=== PATIENT | female | born 1975 | race Two or more races ===

== ENCOUNTER 2018-05-06 11:44 | Inpatient (IN) | payer SELFPAY ==
[~2018-05-06] VITALS: Ht 154.9 cm; Wt 73.4 kg
[2018-05-06] MEDS ORDERED: ONDANSETRON HCL 4 MG/2 ML VIAL IV ONE (12:45)
[2018-05-06] MEDS ORDERED: KETOROLAC TROMETH 30 MG/ML 1ML VIAL IV ONE (12:45)
[2018-05-06 13:38] LABS: Urine Bacteria FEW /hpf (None Seen); Urine Blood 2+ /uL (Negative); Urine Hyaline Cast FEW /lpf (0 - 2); Urine Mucus FEW (None Seen); Urine Specific Gravity 1.015 (1.001-1.035); Urine WBC 42 /hpf (0 - 5)
[2018-05-06 13:56] LABS: Albumin 3.1 g/dL (3.4-5.0); Calcium 8.4 mg/dL (8.5-10.1)
[2018-05-06 13:58] LABS: BUN/Creatinine Ratio 12.9
[2018-05-06 14:00] LABS: Bilirubin, Total 0.3 mg/dL (0.2-1.0); Total Protein 7.7 g/dL (6.4-8.2)
[2018-05-06 14:23] LABS: Eosinophils # (auto) 0.4 uL; Monocytes # (auto) 0.8 uL; White Blood Cell 10.6 10^3/uL (4.4-10.8)
[2018-05-06 14:26] LABS: Basophils # (auto) 0 uL; Basophils % (auto) 0.4 % (0.0-2.0); Eosinophils % (auto) 4.1 % (0.0-7.0); Hematocrit 36.6 % (36.0-46.0); Hemoglobin 11.4 g/dL (12.2-16.2); Lymphocytes # (auto) 1.8 uL; Lymphocytes % (auto) 17.5 % (10.0-50.0); Mean Corpuscular Hemoglobin 22.5 pg (28.0-32.0); Mean Corpuscular Volume 72.6 fL (80.0-100.0); Monocytes % (auto) 7.5 % (0.0-12.0); Neutrophils # (auto) 7.5 uL; Neutrophils % (auto) 70.5 % (37.0-80.0); Platelet Count (auto) 322 10^3/uL (140-450); Red Blood Cells 5.04 10^6/uL (4.0-5.20); Red Cell Distribution Width 19.3 % (11.8-14.3)
[2018-05-06] MEDS ORDERED: cefTRIAXone 1GM/50ML D5W 50 ML IV ONE (14:45)
[2018-05-06] MEDS ORDERED: ONDANSETRON HCL 4 MG/2 ML VIAL IV PRN (15:15)
[2018-05-06] MEDS ORDERED: PERMETHRIN 5 % TOPICAL CREAM 60GM TOP ONE (15:15)
[2018-05-06] MEDS ORDERED: TEMAZEPAM 15 MG CAP PO PRN (15:15)
[2018-05-06] MEDS ORDERED: DOCUSATE SOD 100 MG CAP PO PRN (15:15)
[2018-05-06] MEDS: SODIUM CHLORIDE 0.9% 1,000 ML IV SCH ×2 (15:21→23:24)
[2018-05-06] MEDS ORDERED: MULTIPLE VITAMIN TAB PO ONE (15:30)
[2018-05-06] MEDS ORDERED: HYDR25TA4 PO (17:25)
[2018-05-06 17:26] VITALS: BP 141/93
[2018-05-06 17:38] VITALS: BP 141/93
[2018-05-06] MEDS: Ensure Enlive Strawberry 8oz Bottle PO SCH (18:00)
[2018-05-06] MEDS: MORPHINE SULFATE 4 MG/ML SYR/VIAL IV PRN (19:00)
[2018-05-06] MEDS: HYDROcodone-ACET 5/325MG TAB PO PRN (20:41)
[2018-05-06 22:00] VITALS: BP 148/88
[2018-05-07] MEDS: MORPHINE SULFATE 4 MG/ML SYR/VIAL IV PRN ×2 (00:29→06:10)
[2018-05-07] MEDS: HYDROcodone-ACET 5/325MG TAB PO PRN ×4 (02:39→19:48)
[2018-05-07 05:25] VITALS: BP 135/89
[2018-05-07 05:33] LABS: Mean Corpuscular Hgb Conc. 30.8 g/dL (32.0-36.0); Mean Corpuscular Volume 72.2 fL (80.0-100.0); Platelet Count (auto) 273 10^3/uL (140-450); Red Cell Distribution Width 18.9 % (11.8-14.3)
[2018-05-07 05:40] LABS: Basophils # (auto) 0 uL; Basophils % (auto) 0.3 % (0.0-2.0); Eosinophils # (auto) 0.4 uL; Eosinophils % (auto) 3.3 % (0.0-7.0); Hematocrit 33.4 % (36.0-46.0); Hemoglobin 10.3 g/dL (12.2-16.2); Lymphocytes # (auto) 1.4 uL; Lymphocytes % (auto) 11.5 % (10.0-50.0); Mean Corpuscular Hemoglobin 22.2 pg (28.0-32.0); Monocytes # (auto) 0.8 uL; Monocytes % (auto) 6.5 % (0.0-12.0); Neutrophils # (auto) 9.7 uL; Neutrophils % (auto) 78.4 % (37.0-80.0); Red Blood Cells 4.63 10^6/uL (4.0-5.20); White Blood Cell 12.4 10^3/uL (4.4-10.8)
[2018-05-07 06:02] LABS: Albumin 2.8 g/dL (3.4-5.0); BUN/Creatinine Ratio 14.6; Bilirubin, Total 0.4 mg/dL (0.2-1.0); Calcium 7.6 mg/dL (8.5-10.1); Phosphorus 2.5 mg/dL (2.5-4.90); Total Protein 7.1 g/dL (6.4-8.2); Uric Acid 4.3 mg/dL (2.6-6.0)
[2018-05-07 08:32] VITALS: BP 139/89
[2018-05-07] MEDS: Ensure Enlive Strawberry 8oz Bottle PO SCH ×3 (09:17→18:12)
[2018-05-07] MEDS: SODIUM CHLORIDE 0.9% 1,000 ML IV SCH ×2 (09:17→16:51)
[2018-05-07] MEDS: MULTIPLE VITAMIN TAB PO SCH (09:18)
[2018-05-07] MEDS: cefTRIAXone 1GM/50ML D5W 50 ML IV SCH (09:18)
[2018-05-07 13:00] VITALS: BP 137/88
[2018-05-07] MEDS ORDERED: ERGOCALCIFEROL 50,000 UNIT(1.25MG) CAP PO SCH (17:00)
[2018-05-07 17:22] VITALS: BP 139/85
[2018-05-07 21:47] VITALS: BP 142/81
[2018-05-07] MEDS ORDERED: TAMSULOSIN HYDROCHLORIDE 0.4 MG CAP PO ONE (22:15)
[2018-05-08] MEDS: SODIUM CHLORIDE 0.9% 1,000 ML IV SCH ×3 (00:53→17:04)
[2018-05-08] MEDS: HYDROcodone-ACET 5/325MG TAB PO PRN ×5 (01:51→23:19)
[2018-05-08 04:49] VITALS: BP 129/50
[2018-05-08 05:23] LABS: Eosinophils # (auto) 0.4 uL; Eosinophils % (auto) 3.9 % (0.0-7.0); Hemoglobin 10.7 g/dL (12.2-16.2); Lymphocytes # (auto) 1.8 uL; Monocytes # (auto) 0.6 uL; Neutrophils # (auto) 6.5 uL
[2018-05-08 05:27] LABS: Basophils # (auto) 0 uL; Basophils % (auto) 0.4 % (0.0-2.0); Hematocrit 33.7 % (36.0-46.0); Lymphocytes % (auto) 19.7 % (10.0-50.0); Mean Corpuscular Hemoglobin 23.1 pg (28.0-32.0); Mean Corpuscular Hgb Conc. 31.9 g/dL (32.0-36.0); Mean Corpuscular Volume 72.5 fL (80.0-100.0); Monocytes % (auto) 6.4 % (0.0-12.0); Neutrophils % (auto) 69.6 % (37.0-80.0); Nucleated Red Blood Cells % 0.1 %; Platelet Count (auto) 295 10^3/uL (140-450); Red Blood Cells 4.65 10^6/uL (4.0-5.20); Red Cell Distribution Width 18.8 % (11.8-14.3); White Blood Cell 9.4 10^3/uL (4.4-10.8)
[2018-05-08 05:43] LABS: BUN/Creatinine Ratio 12.8; Calcium 8.1 mg/dL (8.5-10.1); Potassium 3.7 mmol/L (3.5-5.1)
[2018-05-08 08:00] VITALS: BP 158/93
[2018-05-08 08:30] VITALS: BP 158/93
[2018-05-08] MEDS: cefTRIAXone 1GM/50ML D5W 50 ML IV SCH (09:49)
[2018-05-08] MEDS: MULTIPLE VITAMIN TAB PO SCH (09:49)
[2018-05-08] MEDS: Ensure Enlive Strawberry 8oz Bottle PO SCH ×3 (09:53→18:20)
[2018-05-08 12:24] VITALS: BP 154/107
[2018-05-08] MEDS ORDERED: cloNIDine HCL 0.1 MG TAB PO PRN (14:30)
[2018-05-08 17:00] VITALS: BP 135/80
[2018-05-08] MEDS ORDERED: TAMSULOSIN HYDROCHLORIDE 0.4 MG CAP PO SCH (18:00)
[2018-05-08] MEDS: ACETAMINOPHEN 325 MG TAB PO PRN (18:21)
[2018-05-08 21:58] VITALS: BP 160/114
[2018-05-09] MEDS: ACETAMINOPHEN 325 MG TAB PO PRN (00:55)
[2018-05-09] MEDS: SODIUM CHLORIDE 0.9% 1,000 ML IV SCH ×2 (00:56→09:59)
[2018-05-09 05:15] VITALS: BP 146/78
[2018-05-09 05:58] LABS: Basophils # (auto) 0 uL; Basophils % (auto) 0.3 % (0.0-2.0); Eosinophils # (auto) 0.3 uL; Monocytes # (auto) 0.5 uL; Monocytes % (auto) 4.7 % (0.0-12.0); Neutrophils # (auto) 8.5 uL; White Blood Cell 10.9 10^3/uL (4.4-10.8)
[2018-05-09 06:02] LABS: Eosinophils % (auto) 2.8 % (0.0-7.0); Hematocrit 34.5 % (36.0-46.0); Lymphocytes # (auto) 1.5 uL; Lymphocytes % (auto) 14.3 % (10.0-50.0); Mean Corpuscular Hgb Conc. 31.8 g/dL (32.0-36.0); Mean Corpuscular Volume 72.3 fL (80.0-100.0); Neutrophils % (auto) 77.9 % (37.0-80.0); Platelet Count (auto) 323 10^3/uL (140-450); Red Blood Cells 4.77 10^6/uL (4.0-5.20); Red Cell Distribution Width 19.5 % (11.8-14.3)
[2018-05-09 06:08] LABS: BUN/Creatinine Ratio 8.8; Calcium 8.3 mg/dL (8.5-10.1); Potassium 3.6 mmol/L (3.5-5.1)
[2018-05-09 08:00] VITALS: BP 155/94
[2018-05-09 08:52] VITALS: BP 155/94
[2018-05-09] MEDS: cefTRIAXone 1GM/50ML D5W 50 ML IV SCH (09:54)
[2018-05-09] MEDS: MULTIPLE VITAMIN TAB PO SCH (09:54)
[2018-05-09] MEDS: Ensure Enlive Strawberry 8oz Bottle PO SCH ×2 (09:59→12:00)
[2018-05-09 10:14] VITALS: BP 155/94
[2018-05-09 12:02] VITALS: BP 145/73
[2018-05-09] MEDS: HYDROcodone-ACET 5/325MG TAB PO PRN (12:36)
== END 2018-05-09 13:17 | disposition home or self-care (01) | DRG 872 ==
LOC: ER 11:45 → OVERFLOW 15:11 → WEST WING 16:35
PROVIDERS: ADMIT Internal Medicine; ATTEND Internal Medicine
DX: A41.9 Sepsis, unspecified organism (principal); E44.0 Moderate protein-calorie malnutrition; N17.9 Acute kidney failure, unspecified; N13.6 Pyonephrosis; E83.51 Hypocalcemia; I12.9 Hypertensive chronic kidney disease with stage 1 through stage 4 chronic kidney disease, or unspecified chronic kidney disease; F17.210 Nicotine dependence, cigarettes, uncomplicated; K76.0 Fatty (change of) liver, not elsewhere classified; D50.9 Iron deficiency anemia, unspecified; N29 Other disorders of kidney and ureter in diseases classified elsewhere; E83.59 Other disorders of calcium metabolism; S00.03XA Contusion of scalp, initial encounter; F15.90 Other stimulant use, unspecified, uncomplicated; X58.XXXA Exposure to other specified factors, initial encounter; N18.3 Chronic kidney disease, stage 3 (moderate); Z90.49 Acquired absence of other specified parts of digestive tract; Z98.51 Tubal ligation status; Z68.30 Body mass index [BMI] 30.0-30.9, adult; Z59.0 Homelessness; Y93.89 Activity, other specified; Y92.89 Other specified places as the place of occurrence of the external cause; Y99.8 Other external cause status
CPT/HCPCS: 36415; 70450; 70490; 74176; 80048; 80053; 81001; 82150; 82306; 82570; 83690; 83970; 84100; 84156; 84300; 84550; 85025; 87086; 94761; 96365; 96375; G0378; J0696; J1885; J2405

== ENCOUNTER 2020-12-30 15:58 | Emergency (ER) | payer MEDICAID, OTHER ==
[~2020-12-30] VITALS: Ht 154.9 cm; Wt 63.5 kg
[~2020-12-30 15:58] MED LIST: HYDR25TA4 PO
[2020-12-30] MEDS ORDERED: cloNIDine HCL 0.1 MG TAB PO ONE (16:15)
[2020-12-30 18:38] VITALS: BP 137/83
== END 2020-12-30 18:52 | disposition left against medical advice (07) ==
LOC: ER 15:58
DX: I10 Essential (primary) hypertension (principal); Z53.21 Procedure and treatment not carried out due to patient leaving prior to being seen by health care provider

== ENCOUNTER 2021-10-20 16:35 | Emergency (ER) | payer OTHER ==
[~2021-10-20] VITALS: Ht 154.9 cm; Wt 72.6 kg
[2021-10-20 17:15] LABS: Basophils # (auto) 0.1 10 ^3/uL (0-0.2); Eosinophils # (auto) 0.2 10 ^3/uL (0-0.8); Monocytes # (auto) 0.7 10 ^3/uL (0-1.3); Nucleated Red Blood Cells % 0.1 %
[2021-10-20 17:17] LABS: Basophils % (auto) 0.7 % (0.0-2.0); Eosinophils % (auto) 2.1 % (0.0-7.0); Hematocrit 34.2 % (36.0-46.0); Hemoglobin 10.7 g/dL (12.2-16.2); Lymphocytes % (auto) 27.7 % (10.0-50.0); Mean Corpuscular Hemoglobin 20.2 pg (28.0-32.0); Mean Corpuscular Hgb Conc. 31.2 g/dL (32.0-36.0); Monocytes % (auto) 6.2 % (0.0-12.0); Neutrophils # (auto) 6.8 10 ^3/uL (1.6-8.6); Neutrophils % (auto) 63.3 % (37.0-80.0); Red Blood Cells 5.27 10^6/uL (4.0-5.20); Red Cell Distribution Width 18.2 % (11.8-14.3); White Blood Cell 10.8 10^3/uL (4.4-10.8)
[2021-10-20 17:35] LABS: Albumin 3.8 g/dL (3.4-5.0); BUN/Creatinine Ratio 14.9; Calcium 9.3 mg/dL (8.5-10.1); Potassium 3.9 mmol/L (3.5-5.1)
[2021-10-20 17:38] LABS: Bilirubin, Total 0.2 mg/dL (0.2-1.0); Total Protein 7.8 g/dL (6.4-8.2)
[2021-10-20 22:51] VITALS: BP 147/82
[2021-10-20] MEDS ORDERED: LISI20TA28 PO (22:52)
== END 2021-10-20 22:54 | disposition home or self-care (01) ==
LOC: ER 16:35
DX: R07.89 Other chest pain (principal); I10 Essential (primary) hypertension; F17.210 Nicotine dependence, cigarettes, uncomplicated; F15.10 Other stimulant abuse, uncomplicated; Z98.51 Tubal ligation status; Z90.89 Acquired absence of other organs
CPT/HCPCS: 36415; 71045; 80053; 84484; 85025; 93005

== ENCOUNTER 2022-09-15 12:17 | Emergency (ER) | payer OTHER ==
[~2022-09-15] VITALS: Ht 154.9 cm; Wt 61.3 kg
[~2022-09-15 12:17] MED LIST changes: +LISI20TA28 PO
[2022-09-15 12:40] VITALS: BP 134/87
[2022-09-15] MEDS ORDERED: LISI20TA28 PO (12:59)
== END 2022-09-15 13:07 | disposition home or self-care (01) ==
LOC: ER 12:17
DX: I10 Essential (primary) hypertension (principal); F17.210 Nicotine dependence, cigarettes, uncomplicated; F15.10 Other stimulant abuse, uncomplicated; Z76.0 Encounter for issue of repeat prescription; Z98.51 Tubal ligation status

== ENCOUNTER 2023-09-06 10:13 | Emergency (ER) | payer OTHER ==
[~2023-09-06] VITALS: Ht 154.9 cm; Wt 79.0 kg
[~2023-09-06 10:13] MED LIST changes: -LISI20TA28 PO; +LISI20TA56 PO
[2023-09-06 11:31] VITALS: BP 181/93; PULSE 95; RESP 16; TEMP 97.4; O2SAT 99
[2023-09-06] MEDS ORDERED: LISI20TA56 PO (11:37)
== END 2023-09-06 11:41 | disposition home or self-care (01) ==
LOC: ER 10:13
DX: I10 Essential (primary) hypertension (principal); F17.210 Nicotine dependence, cigarettes, uncomplicated; F15.10 Other stimulant abuse, uncomplicated; Z76.0 Encounter for issue of repeat prescription; Z98.51 Tubal ligation status

== ENCOUNTER 2024-10-17 08:46 | Inpatient (IN) | payer MEDICAID, OTHER ==
[~2024-10-17] VITALS: Ht 154.9 cm; Wt 75.9 kg
[2024-10-17 09:20] LABS: Urine Bacteria None Seen /hpf (None Seen)
[2024-10-17 09:37] LABS: Basophils # (auto) 0.1 10 ^3/uL (0-0.2); Monocytes # (auto) 0.4 10 ^3/uL (0-1.3); Nucleated Red Blood Cells % 0.1 %
[2024-10-17 09:41] LABS: Basophils % (auto) 0.7 % (0.0-2.0); Eosinophils # (auto) 0.3 10 ^3/uL (0-0.8); Eosinophils % (auto) 2.9 % (0.0-7.0); Hematocrit 35.5 % (36.0-46.0); Hemoglobin 11.5 g/dL (12.2-16.2); Lymphocytes # (auto) 1.9 10 ^3/uL (0.4-5.4); Mean Corpuscular Hemoglobin 22.5 pg (28.0-32.0); Mean Corpuscular Hgb Conc. 32.3 g/dL (32.0-36.0); Mean Corpuscular Volume 69.9 fL (80.0-100.0); Monocytes % (auto) 4.8 % (0.0-12.0); Neutrophils # (auto) 6.1 10 ^3/uL (1.6-8.6); Neutrophils % (auto) 69.6 % (37.0-80.0); Platelet Count (auto) 348 10^3/uL (140-450); Red Blood Cells 5.08 10^6/uL (4.0-5.20); Red Cell Distribution Width 18.6 % (11.8-14.3); White Blood Cell 8.8 10^3/uL (4.4-10.8)
[2024-10-17 09:42] LABS: Urine Blood 2+ /uL (Negative); Urine Clarity Clear (Clear); Urine Color Colorless (Yellow); Urine Protein, UAD TRACE (Negative); Urine Specific Gravity 1.011 (1.001-1.035); Urine Squamous Epithelial Cell FEW /hpf (<5); Urine Urobilinogen Normal (Negative); Urine WBC 3 /HPF (0-5); Urine pH 6.5 (5.0-9.0)
--- NOTE | 2024-10-17 09:45 | ED.PDOC ---
GI ASSESSMENT HPI Comments 48 y/o F, with PMHx of HTN presents to the ED for CC of abdominal pain. Patient states, that she has been experiencing RLQ pain with associated nausea and vomiting x4days. Patient relays, symptoms worsening when she lays down. Patient denies fever, chills, body-aches, or diarrhea. No other associated symptoms, modifiers, recent injuries or sick contacts present at this time. Chief Complaint: Abdominal Pain Time Seen by MD: 09:35 Primary Care Provider: None Reviewed Notes: Nurses Notes, Medications, Allergies Allergies: Coded Allergies: NO KNOWN ALLERGIES (Unverified , 05/17/10) Home Meds Active Scripts Lisinopril (Lisinopril) 20 Mg Tab, 1 TAB PO DAILY, #90 TAB 1 Refill Prov:TRACI MCGILL 09/06/23 Lisinopril (Lisinopril) 20 Mg Tab, 1 TAB PO DAILY, #30 TAB 2 Refills Prov:ARMAND TOWNSEND 01/12/23 Lisinopril (Lisinopril) 20 Mg Tab, 1 TAB PO DAILY, #30 TAB 1 Refill Prov:ARMAND TOWNSEND 09/15/22 Lisinopril (Lisinopril) 20 Mg Tab, 1 TAB PO DAILY, #30 TAB 5 Refills Prov:BARRY YOUNG MD 10/20/21 Reported Medications Hydrochlorothiazide (Hydrochlorothiazide) 25 Mg Tab, 25 MG PO DAILY for 30 Days, MG 05/06/18 Information Source: Patient Mode of Arrival: Ambulatory Timing: Days Duration: Since onset Prehospital treatment: None Quality: None Vomitus: Watery Stool: Normal Severity: None Recent: None Recent Hx of: None Pain Location: RLQ Modifying Factors: Nothing Associated sign and symptoms: Nausea, Vomiting Past Medical History PAST MEDICAL HISTORY: HTN Surgical History: Appendectomy, 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 Family History Family History: Reviewed,noncontributory to illness Social History Smoker: Cigarettes Alcohol: Occasionally Drugs: Methamphetamine Lives In: Home Constitutional: denies: chills, diaphoresis, fatigue, fever, malaise, sweats, weakness, others EENTM: denies: blurred vision, double vision, ear bleeding, ear discharge, ear drainage, ear pain, ear ringing, eye pain, eye redness, hearing loss, mouth pain, mouth swelling, nasal discharge, nose bleeding, nose congestion, nose pain, photophobia, tearing, throat pain, throat swelling, voice changes, others Respiratory: denies: cough, hemoptysis, orthopnea, SOB at rest, shortness of breath, SOB with excertion, stridor, wheezing, others Cardiovascular: denies: chest pain, dizzy spells, diaphoresis, Dyspnea on exertion, edema, irregular heart beat, left arm pain, lightheadedness, palpitations, PND, syncope, others Gastrointestinal: reports: abdominal pain, nausea, vomiting; denies: abdomen distended, blood streaked bowels, constipated, diarrhea, dysphagia, difficulty swallowing, hematemesis, melena, poor appetite, poor fluid intake, rectal bleeding, rectal pain, others Genitourinary: denies: abnormal vagina bleeding, burning, dyspareunia, dysuria, flank pain, frequency, hematuria, incontinence, pain, , vagina discharge, urgency, others Neurological: denies: dizziness, fainting, headache, left sided numbness, left sided weakness, numbness, paresthesia, pre-existing deficit, right sided numbness, right sided weakness, seizure, speech problems, tingling, tremors, weakness, others Musculoskeletal: denies: back pain, gout, joint pain, joint swelling, muscle pain, muscle stiffness, neck pain, others Integumetry: denies: bruises, change in color, change in hair/nails, dryness, laceration, lesions, lumps, rash, wounds, others Allergic/Immunocompromised: denies: Difficulty Healing, Frequent Infections, Hives, Itching, others Hematologic/Lymphatic: denies: anemia, blood clots, easy bleeding, easy bruising, swollen glands, others Endocrine: denies: excessive hunger, excessive sweating, excessive thirst, excessive urination, flushing, intolerance to cold, intolerance to heat, unexplained weight gain, unexplained weight loss, others Psychiatric: denies: anxiety, bipolar disorder, depression, hopeless, panic disorder, schizophrenia, sleepless, suicidal, others All Other Systems: Reviewed and Negative Physical Exam General Appearance: No Apparent Distress, Normal HEENT: Normal ENT Inspection, Pharynx Normal Neck: Full Range of Motion, Non-Tender, Normal, Normal Inspection Respiratory: Chest Non-Tender, Lungs Clear, No Accessory Muscle Use, No Respiratory Distress, Normal Breath Sounds Cardiovascular: No Edema, No Murmur, No Gallop, Normal Peripheral Pulses, Regular Rate/Rhythm Breast Exam: Deferred Gastrointestinal: No Organomegaly, Non Tender, No Pulsatile Mass, Normal Bowel Sounds, Soft, Other (no cva ttp) Genitalia: Deferred Pelvic: Deferred Rectal: Deferred Extremities: No calf tenderness, Normal capillary refill, Normal inspection, Normal range of motion, Non-tender, No pedal edema Musculoskeletal : Apperance: Normal Neurologic: Alert, No Motor Deficits, Normal Affect, Normal Mood, No Sensory Deficits Cerebellar Function: Normal Reflexes: Normal Skin: Dry, Normal Color, Warm Lymphatic: No Adenopathy Was a procedure done? Was a procedure done?: No GI differential Dx Differential Diagnosis: Constipation, Gastritis/PUD, Gastroenteritis, UTI, Electrolyte Imbalance, Food Poisoning, Bacterial, Viral X-Ray, Labs, Meds, VS Vital Signs Date Time Temp Pulse Resp B/P (MAP) Pulse Ox O2 Delivery O2 Flow Rate FiO2 10/17/24 09:28 97.4 77 19 144/91 (108) 97 97.4 Lab Test 10/17/24 09:23 10/17/24 09:20 Range/Units White Blood Count 8.8 4.4-10.8 10^3/uL Red Blood Count 5.08 4.0-5.20 10^6/uL Hemoglobin 11.5 L 12.2-16.2 g/dL Hematocrit 35.5 L 36.0-46.0 % Mean Corpuscular Volume 69.9 L 80.0-100.0 fL Mean Corpuscular Hemoglobin 22.5 L 28.0-32.0 pg Mean Corpuscular Hemoglobin Concent 32.3 32.0-36.0 g/dL Red Cell Distribution Width 18.6 H 11.8-14.3 % Platelet Count 348 140-450 10^3/uL Mean Platelet Volume 8.5 6.9-10.8 fL Neutrophils (%) (Auto) 69.6 37.0-80.0 % Lymphocytes (%) (Auto) 22.0 10.0-50.0 % Monocytes (%) (Auto) 4.8 0.0-12.0 % Eosinophils (%) (Auto) 2.9 0.0-7.0 % Basophils (%) (Auto) 0.7 0.0-2.0 % Neutrophils # (Auto) 6.1 1.6-8.6 10 ^3/uL Lymphocytes # (Auto) 1.9 0.4-5.4 10 ^3/uL Monocytes # (Auto) 0.4 0-1.3 10 ^3/uL Eosinophils # (Auto) 0.3 0-0.8 10 ^3/uL Basophils # (Auto) 0.1 0-0.2 10 ^3/uL Nucleated Red Blood Cells 0.1 % Sodium Level 140 136-145 mmol/L Potassium Level 4.2 3.5-5.1 mmol/L Chloride Level 108 H 98-107 mmol/L Carbon Dioxide Level 24 20-31 mmol/L Anion Gap 8 5-15 Blood Urea Nitrogen 12 9-23 mg/dL Creatinine 0.88 0.550-1.02 mg/dL Glomerular Filtration Rate Calc 82 >90 mL/min BUN/Creatinine Ratio 13.6 10.0-20.0 Serum Glucose 94 74-106 mg/dL Lactic Acid Level 1.0 0.4-2.0 mmol/L Calcium Level 10.0 8.7-10.4 mg/dL Total Bilirubin 0.5 0.2-1.0 mg/dL Aspartate Amino Transferase (AST) 13 13-40 U/L Alanine Aminotransferase (ALT) 14 7-40 U/L Alkaline Phosphatase 84 46-116 U/L Total Protein 7.6 5.7-8.2 g/dL Albumin 4.8 3.2-4.8 g/dL Lipase 44 12-53 U/L Beta HCG, Quantitative 0.4 L 1.5-4.2 mIU/mL Urine Color Colorless Yellow Urine Clarity Clear Clear Urine pH 6.5 5.0-9.0 Urine Specific [place] 1.011 1.001-1.035 Urine Protein Trace H Negative Urine Ketones Negative Negative Urine Blood 2+ H Negative /uL Urine Nitrite Negative Negative Urine Bilirubin Negative Negative Urine Urobilinogen Normal Negative mg/dL Urine Leukocyte Esterase Negative Negative /uL Urine RBC 62 0 - 4 /hpf Urine Microscopic WBC 3 0-5 /HPF Urine Squamous Epithelial Cells Few <5 /hpf Urine Bacteria None seen None Seen /hpf Urine Glucose Normal Normal mg/dL X-Ray, Labs, Meds, VS Comment This 48-year-old female presents to emergency room secondary to left lower nancy drant abdominal pain. Physical exam was benign. However, her CT shows a 7 mm obstructing left kidney stone with hydronephrosis. She also has bilateral nephrocalcinosis. Secondary to the obstructing nature of the stone and its size, she will be admitted for further workup and management. The patient was given IV hydration, Flomax and morphine for pain. Time of 1ST Reevaluation: 10:05 Reevaluation 1ST: Unchanged Patient Education/Counseling: Diagnosis, Treatment Family Education/Counseling: No Family Present Departure 1 Departure Time of Disposition: 11:49 Impression: Primary Impression: Nephrolithiasis Additional Impressions: Left lower quadrant abdominal pain Hematuria Disposition: 01 HOME / SELF CARE / HOMELESS Admit to: Med Surg Condition: Serious Critical Care Note Critical Care Time?: No Stability Stability form required: No Heart Score Heart Score: Heart Score Response (Comments) Value History N/A 0 EKG N/A 0 Age N/A 0 Risk Factors N/A 0 Troponin N/A 0 Total 0 I personally scribed for CASSANDRA BLAIR MD ([email or web address]) on 10/17/24 at 09:45. Electronically submitted by Rupa Dickerson [email or web address]). CASSANDRA BLAIR MD Oct 17, 2024 09:45
[2024-10-17 09:52] LABS: Alanine Aminotransferase 14 U/L (7-40); Albumin 4.8 g/dL (3.2-4.8); Alkaline Phosphatase 84 U/L (46-116); Anion Gap 8 (5-15); Aspartate Aminotransferase 13 U/L (13-40); BUN/Creatinine Ratio 13.6 (10.0-20.0); Blood Urea Nitrogen 12 mg/dL (9-23); Carbon Dioxide 24 mmol/L (20-31); Glucose 94 mg/dL (74-106); Potassium 4.2 mmol/L (3.5-5.1); Sodium 140 mmol/L (136-145); Total Protein 7.6 g/dL (5.7-8.2)
[2024-10-17 09:53] LABS: Bilirubin, Total 0.5 mg/dL (0.2-1.0)
[2024-10-17 09:56] LABS: Chloride 108 mmol/L (98-107)
[2024-10-17 10:28] LABS: Lipase 44 U/L (12-53)
--- NOTE | 2024-10-17 10:43 | DVH ---
INDICATION: LLQ pain assess for ovarian torsion TECHNIQUE: Multiple real-time grayscale transabdominal sonographic images along with color and duplex Doppler of the uterus and ovaries were obtained. COMPARISON: None FINDINGS: Evaluation is limited due to body habitus. The uterus measures 13.6 x 5.3 x 6.3 cm. The endometrial stripe measures 0.8 cm. The right ovary measures 3.2 x 2.0 x 1.9 cm. The left ovary measures 3.2 x 2.0 x 2.5 cm. Subsequent color and duplex Doppler interrogation of the ovaries demonstrated symmetric vascular flow to both ovaries, though this does not exclude the possibility of torsion due to the dual blood suppl y. IMPRESSION: 1. Grossly unremarkable pelvic ultrasound.
--- NOTE | 2024-10-17 11:00 | DVH ---
CLINICAL INFORMATION: Left lower quadrant pain. TECHNIQUE: Axial CT images of the abdomen and pelvis were obtained without IV contrast. Coronal and s agittal reformatted images were obtained, reviewed, and stored. Evaluation of the parenchymal organs is limited without IV contrast. Evaluation of the bowel and mesentery is limited without oral contras t. All CT scans at this medical facility are performed using dose modulation techniques as appropriat e to a performed exam including the following: Automated exposure control was utilized; adjustment of the MA and/or KV according to patient size; and use of iterative reconstruction technique. CTDIvol = 11.31 mGy DLP = 598.31 mGy-cm COMPARISON: None FINDINGS: Lung bases: Lung bases are clear. Liver: Grossly unremarkable in its noncontrast enhanced appearance. No abnormal density or focal lesi on identified. Biliary: Gallbladder is partially contracted. Small calcified gallstones visualized. Spleen: Unremarkable. Pancreas: Grossly unremarkable in its noncontrast enhanced appearance. Adrenal glands: Unremarkable. No mass. Kidneys: Moderate left hydronephrosis and hydroureter with obstructing calculus in the distal left ur eter measuring up to 7 mm in greatest dimension, approximately 4 cm proximal to the left ureterovesic al junction. There is bilateral medullary nephrocalcinosis and multiple nonobstructing bilateral una l calculi. Cyst in the upper pole of the right kidney measures up to 2 cm. Small subcentimeter low-at tenuation lesions are seen in the left kidney, likely small cysts, but too small to characterize poor ly delineated from the adjacent renal parenchyma on noncontrast enhanced exam. Aorta/Vascular: Scattered atherosclerotic calcification. No abdominal aortic aneurysm. Retroperitoneum: No mass or lymphadenopathy. Bowel/mesentery: No small bowel obstruction. Appendix is not visualized. Scattered colonic diverticul a without adjacent inflammatory changes to suggest diverticulitis. Pelvic organs: Uterus is anteverted. Bladder: Unremarkable. No mass. Abdominal wall: Small fat containing umbilical hernia. Bones: No acute fracture or suspicious intraosseous lesion. IMPRESSION: 1. Moderate left hydronephrosis with obstructing 7 mm calculus in the distal left ureter. 2. Bilateral medullary nephrocalcinosis and multiple nonobstructing bilateral renal calculi. 3. Right renal cyst small low-attenuation lesions in the left kidney, possibly cysts, but not well ch aracterized due to their small size and noncontrast enhanced exam. 4. Scattered colonic diverticula without adjacent inflammatory changes to suggest diverticulitis. 5. Cholelithiasis partially contracted gallbladder.
[2024-10-17] MEDS ORDERED: MORPHINE SULFATE INJ 2 MG/ml SYRG IV PRN (12:15)
[2024-10-17] MEDS ORDERED: ACETAMINOPHEN 325 MG TAB PO PRN (12:15)
[2024-10-17] MEDS: SODIUM CHLORIDE 0.9% 1,000 ML IV ONE (12:32)
[2024-10-17] MEDS: TAMSULOSIN HYDROCHLORIDE 0.4 MG CAP PO ONE (12:36)
[2024-10-17] MEDS: MORPHINE SULFATE 4 MG/ML SYR/VIAL IV ONE (12:37)
[2024-10-17] MEDS: SODIUM CHLORIDE 0.9% 1,450 ML IV ONE (12:38)
--- NOTE | 2024-10-17 12:48 | DVHINCON2 ---
Date of service: Oct 17, 2024 Referring Physician ER Reason for Consultation 7 mm obstructing distal ureteral stone, left History of Present Illness 48-year-old female with past medical history of hypertension, appendectomy, and tubal ligation who presents to the ED with abdominal pain with nausea and vomiting x5 days. Patient states that she just recently got off her menstrual cycle on Monday. She states that there has been trickles of voiding for the last several days and sure if there was bleeding as she is on her menstrual cycle. Patient states that her left lower quadrant abdominal pain is 7/10 stabbing like and intermittent nature. She also reports that she had nausea and vomiting with clear color and food contents. Patient denies any recent travels or recent ingestion of spoiled food, recent trauma or injury, diarrhea, lightheadedness, weakness, dizziness, chest pain, shortness of breath, fever, or chills. Past Medical History Cardiovascular: HTN Past Surgical History Appendectomy, Tubal Ligation Allergies: Coded Allergies: NO KNOWN ALLERGIES (Unverified , 05/17/10) Home Meds Active Scripts Lisinopril (Lisinopril) 20 Mg Tab, 1 TAB PO DAILY, #90 TAB 1 Refill Prov:TRACI MCGILL 09/06/23 Lisinopril (Lisinopril) 20 Mg Tab, 1 TAB PO DAILY, #30 TAB 2 Refills Prov:ARMAND TOWNSEND 01/12/23 Lisinopril (Lisinopril) 20 Mg Tab, 1 TAB PO DAILY, #30 TAB 1 Refill Prov:ARMAND TOWNSEND 09/15/22 Lisinopril (Lisinopril) 20 Mg Tab, 1 TAB PO DAILY, #30 TAB 5 Refills Prov:BARRY YOUNG MD 10/20/21 Discontinued Reported Medications Hydrochlorothiazide (Hydrochlorothiazide) 25 Mg Tab, 25 MG PO DAILY for 30 Days, MG 05/06/18 Current Medications Current Medications Medications (Trade) Dose Ordered Sig/Phillip Route PRN Reason Start Time Stop Time Status Last Admin Tamsulosin HCl (Flomax) 0.4 mg QPM PO 10/18/24 18:00 Sodium Chloride 1,000 ml @ 100 mls/hr Q10H IV 10/17/24 12:15 Ceftriaxone Sodium 50 ml @ 100 mls/hr DAILY@09 IV 10/17/24 12:15 Acetaminophen/ Hydrocodone Bitart (Burr 5/325MG Tab) 1 tab Q4HP PRN PO MODERATE PAIN (4-6 PAIN SCALE) 10/17/24 12:15 Ondansetron HCl (Zofran) 4 mg Q4HP PRN IV NAUSEA / VOMITING 10/17/24 12:15 Enoxaparin Sodium (Lovenox) 40 mg DAILY SC 10/18/24 10:00 Acetaminophen (Tylenol Tablet) 650 mg Q6HP PRN PO PAIN SCALE 1-3 OR TEMP>100.4 10/17/24 12:15 Morphine Sulfate 2 mg Q4HPRN PRN IV SEVERE PAIN (7-10 PAIN SCALE) 10/17/24 12:15 Lisinopril (Zestril Tablet) 20 mg DAILY PO 10/18/24 10:00 Review of Systems Gastrointestinal: Nausea, Vomiting, Abdominal Pain Allergies: Coded Allergies: NO KNOWN ALLERGIES (Unverified , 05/17/10) Medications Current Medications Medications Dose Ordered Sig/Phillip Route Start Time Stop Time Status Last Admin Dose Admin Tamsulosin HCl 0.4 mg QPM PO 10/17/24 18:00 UNV Sodium Chloride 1,000 ml @ 100 mls/hr Q10H IV 10/17/24 12:15 UNV Ceftriaxone Sodium 50 ml @ 100 mls/hr DAILY@09 IV 10/17/24 12:15 UNV Acetaminophen/ Hydrocodone Bitart 1 tab Q4HP PRN PO 10/17/24 12:15 UNV Ondansetron HCl 4 mg Q4HP PRN IV 10/17/24 12:15 UNV Enoxaparin Sodium 40 mg DAILY SC 10/18/24 10:00 UNV Acetaminophen 650 mg Q6HP PRN PO 10/17/24 12:15 UNV Morphine Sulfate 2 mg Q4HPRN PRN IV 10/17/24 12:15 UNV Lisinopril 20 mg DAILY PO 10/18/24 10:00 UNV Vital Signs Vital Signs Date Time Temp Pulse Resp B/P (MAP) Pulse Ox O2 Delivery O2 Flow Rate FiO2 10/17/24 12:37 76 16 159/98 10/17/24 12:30 98 Room Air 10/17/24 12:30 98.2 98.2 Physical Exam Vital Signs Date Time Temp Pulse Resp B/P (MAP) Pulse Ox O2 Delivery O2 Flow Rate FiO2 10/17/24 12:30 76 16 98 Room Air 10/17/24 12:30 98.2 159/98 (118) 98.2 General Appearance: Alert, Oriented X3, Cooperative, No acute distress HEENT: Atraumatic, PERRLA, EOMI, Mucous membr. moist/pink Respiratory: Clear to auscultation, Normal air movement Cardiovascular: Regular rate, Normal S1, Normal S2, No murmurs Abdominal: Normal bowel sounds, Soft Extremities: No clubbing, No cyanosis, No edema, Normal pulses, No tenderness/swelling Skin: No significant lesion Neuro: Normal speech, Strength at 5/5 X4 ext, Normal tone, Sensation intact Psych/Mental Status: Mental status NL, Mood NL Labs/Diagnostic Data Labs Test 10/17/24 09:23 10/17/24 09:20 Range/Units White Blood Count 8.8 4.4-10.8 10^3/uL Red Blood Count 5.08 4.0-5.20 10^6/uL Hemoglobin 11.5 L 12.2-16.2 g/dL Hematocrit 35.5 L 36.0-46.0 % Mean Corpuscular Volume 69.9 L 80.0-100.0 fL Mean Corpuscular Hemoglobin 22.5 L 28.0-32.0 pg Mean Corpuscular Hemoglobin Concent 32.3 32.0-36.0 g/dL Red Cell Distribution Width 18.6 H 11.8-14.3 % Platelet Count 348 140-450 10^3/uL Mean Platelet Volume 8.5 6.9-10.8 fL Neutrophils (%) (Auto) 69.6 37.0-80.0 % Lymphocytes (%) (Auto) 22.0 10.0-50.0 % Monocytes (%) (Auto) 4.8 0.0-12.0 % Eosinophils (%) (Auto) 2.9 0.0-7.0 % Basophils (%) (Auto) 0.7 0.0-2.0 % Neutrophils # (Auto) 6.1 1.6-8.6 10 ^3/uL Lymphocytes # (Auto) 1.9 0.4-5.4 10 ^3/uL Monocytes # (Auto) 0.4 0-1.3 10 ^3/uL Eosinophils # (Auto) 0.3 0-0.8 10 ^3/uL Basophils # (Auto) 0.1 0-0.2 10 ^3/uL Nucleated Red Blood Cells 0.1 % Sodium Level 140 136-145 mmol/L Potassium Level 4.2 3.5-5.1 mmol/L Chloride Level 108 H 98-107 mmol/L Carbon Dioxide Level 24 20-31 mmol/L Anion Gap 8 5-15 Blood Urea Nitrogen 12 9-23 mg/dL Creatinine 0.88 0.550-1.02 mg/dL Glomerular Filtration Rate Calc 82 >90 mL/min BUN/Creatinine Ratio 13.6 10.0-20.0 Serum Glucose 94 74-106 mg/dL Lactic Acid Level 1.0 0.4-2.0 mmol/L Calcium Level 10.0 8.7-10.4 mg/dL Total Bilirubin 0.5 0.2-1.0 mg/dL Aspartate Amino Transferase (AST) 13 13-40 U/L Alanine Aminotransferase (ALT) 14 7-40 U/L Alkaline Phosphatase 84 46-116 U/L Total Protein 7.6 5.7-8.2 g/dL Albumin 4.8 3.2-4.8 g/dL Lipase 44 12-53 U/L Beta HCG, Quantitative 0.4 L 1.5-4.2 mIU/mL Urine Color Colorless Yellow Urine Clarity Clear Clear Urine pH 6.5 5.0-9.0 Urine Specific [place] 1.011 1.001-1.035 Urine Protein Trace H Negative Urine Ketones Negative Negative Urine Blood 2+ H Negative /uL Urine Nitrite Negative Negative Urine Bilirubin Negative Negative Urine Urobilinogen Normal Negative mg/dL Urine Leukocyte Esterase Negative Negative /uL Urine RBC 62 0 - 4 /hpf Urine Microscopic WBC 3 0-5 /HPF Urine Squamous Epithelial Cells Few <5 /hpf Urine Bacteria None seen None Seen /hpf Urine Glucose Normal Normal mg/dL PATIENT: LUCY PERSAUD ACCT: [id number] UNIT: [id number] : 1975 LOC: ER ROOM / BED: / AGE / SEX: 48 / F ADM STATUS: REG ER SERVICE [id number] ORDERING PHYSICIAN: CASSANDRA BLAIR MD PROCEDURE(s): ABPL - CT AB PEL WO CON-NO ORAL OR IV REASON: LLQ pain x 4 days ORDER NUMBER(s): [id number], ACCESSION NUMBER(s): [id number] CLINICAL INFORMATION: Left lower quadrant pain. TECHNIQUE: Axial CT images of the abdomen and pelvis were obtained without IV contrast. Coronal and sagittal reformatted images were obtained, reviewed, and stored. Evaluation of the parenchymal organs is limited without IV contrast. Ev aluation of the bowel and mesentery is limited without oral contrast. All CT scans at this medical facility are performed using dose modulation techniques as appropriate to a performed exam including the following: Automated exposure control was utilized; adjustment of the MA and/or KV according to patient size; and use of iterative reconstruction technique. CTDIvol = 11.31 mGy DLP = 598.31 mGy-cm COMPARISON: None FINDINGS: Lung bases: Lung bases are clear. Liver: Grossly unremarkable in its noncontrast enhanced appearance. No abnormal density or focal lesion identified. Biliary: Gallbladder is partially contracted. Small calcified gallstones visualized. Spleen: Unremarkable. Pancreas: Grossly unremarkable in its noncontrast enhanced appearance. Adrenal glands: Unremarkable. No mass. Kidneys: Moderate left hydronephrosis and hydroureter with obstructing calculus in the distal left ureter measuring up to 7 mm in greatest dimension, approximately 4 cm proximal to the left ureterovesical junction. There is bilateral medullary nephrocalcinosis and multiple nonobstructing bilateral renal calculi. Cyst in the upper pole of the right kidney measures up to 2 cm. Small subcentimeter low-attenuation lesions are seen in the left kidney, likely small cysts, but too small to characterize poorly delineated from the adjacent renal parenchyma on noncontrast enhanced exam. Aorta/Vascular: Scattered atherosclerotic calcification. No abdominal aortic aneurysm. Retroperitoneum: No mass or lymphadenopathy. Bowel/mesentery: No small bowel obstruction. Appendix is not visualized. Scattered colonic diverticula without adjacent inflammatory changes to suggest diverticulitis. Pelvic organs: Uterus is anteverted. Bladder: Unremarkable. No mass. Abdominal wall: Small fat containing umbilical hernia. Bones: No acute fracture or suspicious intraosseous lesion. IMPRESSION: 1. Moderate left hydronephrosis with obstructing 7 mm calculus in the distal left ureter. 2. Bilateral medullary nephrocalcinosis and multiple nonobstructing bilateral renal calculi. 3. Right renal cyst small low-attenuation lesions in the left kidney, possibly cysts, but not well characterized due to their small size and noncontrast enhanced exam. 4. Scattered colonic diverticula without adjacent inflammatory changes to suggest diverticulitis. 5. Cholelithiasis partially contracted gallbladder. ATED BY: NICK FLORENCE DO DICTATED DATE/TIME: 10/17/24 1058 SIGNED BY: NICK FLORENCE DO SIGNED DATE/TIME: 10/17/24 1058 CC: Assessment Left distal ureteral stone, 7 mm with moderate hydronephrosis Left abdominal pain Plan/Recommendation Left PNT Outpatient lithotripsy TBA Plan discussed with: Patient, Other OSWALD CHAU MD Oct 17, 2024 12:48
--- NOTE | 2024-10-17 12:53 | DVHHP2 ---
History of Present Illness Reason for Visit: Abdominal pain History of Present Illness Laura Diallo is a 48-year-old female with past medical history of hypertension, appendectomy, and tubal ligation who presents to the ED with abdominal pain with nausea and vomiting x5 days. Patient states that she just recently got off her menstrual cycle on Monday. She states that there has been trickles of voiding for the last several days and sure if there was bleeding as she is on her menstrual cycle. Patient states that her left lower quadrant abdominal pain is 7/10 stabbing like and intermittent nature. She also reports that she had nausea and vomiting with clear color and food contents. Patient denies any recent travels or recent ingestion of spoiled food, recent trauma or injury, diarrhea, lightheadedness, weakness, dizziness, chest pain, shortness of breath, fever, or chills. Cardiovascular: HTN Past Surgical History: Appendectomy, Tubal Ligation Family History: None Smoke: <1 pack per day ALCOHOL: none (Quit) Drugs: Marijuana (Quit) Lives: with Family Domestic Violence: Neg Review of Systems Gastrointestinal: Nausea, Vomiting, Abdominal Pain Allergies: Coded Allergies: NO KNOWN ALLERGIES (Unverified , 05/17/10) Medications Current Medications Medications Dose Ordered Sig/Phillip Route Start Time Stop Time Status Last Admin Dose Admin Tamsulosin HCl 0.4 mg QPM PO 10/17/24 18:00 UNV Sodium Chloride 1,000 ml @ 100 mls/hr Q10H IV 10/17/24 12:15 UNV Ceftriaxone Sodium 50 ml @ 100 mls/hr DAILY@09 IV 10/17/24 12:15 UNV Acetaminophen/ Hydrocodone Bitart 1 tab Q4HP PRN PO 10/17/24 12:15 UNV Ondansetron HCl 4 mg Q4HP PRN IV 10/17/24 12:15 UNV Enoxaparin Sodium 40 mg DAILY SC 10/18/24 10:00 UNV Acetaminophen 650 mg Q6HP PRN PO 10/17/24 12:15 UNV Morphine Sulfate 2 mg Q4HPRN PRN IV 10/17/24 12:15 UNV Lisinopril 20 mg DAILY PO 10/18/24 10:00 UNV Exam Vital Signs Vital Signs Date Time Temp Pulse Resp B/P (MAP) Pulse Ox O2 Delivery O2 Flow Rate FiO2 10/17/24 12:30 76 16 98 Room Air 10/17/24 12:30 98.2 159/98 (118) 98.2 General Appearance: Alert, Oriented X3, Cooperative, No acute distress HEENT: Atraumatic, PERRLA, EOMI, Mucous membr. moist/pink Respiratory: Clear to auscultation, Normal air movement Cardiovascular: Regular rate, Normal S1, Normal S2, No murmurs Abdominal: Normal bowel sounds, Soft Extremities: No clubbing, No cyanosis, No edema, Normal pulses, No tenderness/swelling Skin: No significant lesion Neuro: Normal speech, Strength at 5/5 X4 ext, Normal tone, Sensation intact Psych/Mental Status: Mental status NL, Mood NL Labs/Xrays Labs Test 10/17/24 09:23 10/17/24 09:20 Range/Units White Blood Count 8.8 4.4-10.8 10^3/uL Red Blood Count 5.08 4.0-5.20 10^6/uL Hemoglobin 11.5 L 12.2-16.2 g/dL Hematocrit 35.5 L 36.0-46.0 % Mean Corpuscular Volume 69.9 L 80.0-100.0 fL Mean Corpuscular Hemoglobin 22.5 L 28.0-32.0 pg Mean Corpuscular Hemoglobin Concent 32.3 32.0-36.0 g/dL Red Cell Distribution Width 18.6 H 11.8-14.3 % Platelet Count 348 140-450 10^3/uL Mean Platelet Volume 8.5 6.9-10.8 fL Neutrophils (%) (Auto) 69.6 37.0-80.0 % Lymphocytes (%) (Auto) 22.0 10.0-50.0 % Monocytes (%) (Auto) 4.8 0.0-12.0 % Eosinophils (%) (Auto) 2.9 0.0-7.0 % Basophils (%) (Auto) 0.7 0.0-2.0 % Neutrophils # (Auto) 6.1 1.6-8.6 10 ^3/uL Lymphocytes # (Auto) 1.9 0.4-5.4 10 ^3/uL Monocytes # (Auto) 0.4 0-1.3 10 ^3/uL Eosinophils # (Auto) 0.3 0-0.8 10 ^3/uL Basophils # (Auto) 0.1 0-0.2 10 ^3/uL Nucleated Red Blood Cells 0.1 % Sodium Level 140 136-145 mmol/L Potassium Level 4.2 3.5-5.1 mmol/L Chloride Level 108 H 98-107 mmol/L Carbon Dioxide Level 24 20-31 mmol/L Anion Gap 8 5-15 Blood Urea Nitrogen 12 9-23 mg/dL Creatinine 0.88 0.550-1.02 mg/dL Glomerular Filtration Rate Calc 82 >90 mL/min BUN/Creatinine Ratio 13.6 10.0-20.0 Serum Glucose 94 74-106 mg/dL Lactic Acid Level 1.0 0.4-2.0 mmol/L Calcium Level 10.0 8.7-10.4 mg/dL Total Bilirubin 0.5 0.2-1.0 mg/dL Aspartate Amino Transferase (AST) 13 13-40 U/L Alanine Aminotransferase (ALT) 14 7-40 U/L Alkaline Phosphatase 84 46-116 U/L Total Protein 7.6 5.7-8.2 g/dL Albumin 4.8 3.2-4.8 g/dL Lipase 44 12-53 U/L Beta HCG, Quantitative 0.4 L 1.5-4.2 mIU/mL Urine Color Colorless Yellow Urine Clarity Clear Clear Urine pH 6.5 5.0-9.0 Urine Specific [place] 1.011 1.001-1.035 Urine Protein Trace H Negative Urine Ketones Negative Negative Urine Blood 2+ H Negative /uL Urine Nitrite Negative Negative Urine Bilirubin Negative Negative Urine Urobilinogen Normal Negative mg/dL Urine Leukocyte Esterase Negative Negative /uL Urine RBC 62 0 - 4 /hpf Urine Microscopic WBC 3 0-5 /HPF Urine Squamous Epithelial Cells Few <5 /hpf Urine Bacteria None seen None Seen /hpf Urine Glucose Normal Normal mg/dL INDICATION: LLQ pain assess for ovarian torsion TECHNIQUE: Multiple real-time grayscale transabdominal sonographic images along with color and duplex Doppler of the uterus and ovaries were obtained. COMPARISON: None FINDINGS: Evaluation is limited due to body habitus. The uterus measures 13.6 x 5.3 x 6.3 cm. The endometrial stripe measures 0.8 cm. The right ovary measures 3.2 x 2.0 x 1.9 cm. The left ovary measures 3.2 x 2.0 x 2.5 cm. Subsequent color and duplex Doppler interrogation of the ovaries demonstrated symmetric vascular flow to both ovaries, though this does not exclude the possibility of torsion due to the dual blood supply. IMPRESSION: 1. Grossly unremarkable pelvic ultrasound. CLINICAL INFORMATION: Left lower quadrant pain. TECHNIQUE: Axial CT images of the abdomen and pelvis were obtained without IV contrast. Coronal and sagittal reformatted images were obtained, reviewed, and stored. Evaluation of the parenchymal organs is limited without IV contrast. Evaluation of the bowel and mesentery is limited without oral contrast. All CT scans at this medical facility are performed using dose modulation techniques as appropriate to a performed exam including the following: Automated exposure control was utilized; adjustment of the MA and/or KV according to patient size; and use of iterative reconstruction technique. CTDIvol = 11.31 mGy DLP = 598.31 mGy-cm COMPARISON: None FINDINGS: Lung bases: Lung bases are clear. Liver: Grossly unremarkable in its noncontrast enhanced appearance. No abnormal density or focal lesion identified. Biliary: Gallbladder is partially contracted. Small calcified gallstones visualized. Spleen: Unremarkable. Pancreas: Grossly unremarkable in its noncontrast enhanced appearance. Adrenal glands: Unremarkable. No mass. Kidneys: Moderate left hydronephrosis and hydroureter with obstructing calculus in the distal left ureter measuring up to 7 mm in greatest dimension, approximately 4 cm proximal to the left ureterovesical junction. There is bilateral medullary nephrocalcinosis and multiple nonobstructing bilateral renal calculi. Cyst in the upper pole of the right kidney measures up to 2 cm. Small subcentimeter low-attenuation lesions are seen in the left kidney, likely small cysts, but too small to characterize poorly delineated from the adjacent renal parenchyma on noncontrast enhanced exam. Aorta/Vascular: Scattered atherosclerotic calcification. No abdominal aortic aneurysm. Retroperitoneum: No mass or lymphadenopathy. Bowel/mesentery: No small bowel obstruction. Appendix is not visualized. Scattered colonic diverticula without adjacent inflammatory changes to suggest diverticulitis. Pelvic organs: Uterus is anteverted. Bladder: Unremarkable. No mass. Abdominal wall: Small fat containing umbilical hernia. Bones: No acute fracture or suspicious intraosseous lesion. IMPRESSION: 1. Moderate left hydronephrosis with obstructing 7 mm calculus in the distal left ureter. 2. Bilateral medullary nephrocalcinosis and multiple nonobstructing bilateral renal calculi. 3. Right renal cyst small low-attenuation lesions in the left kidney, possibly cysts, but not well characterized due to their small size and noncontrast enhanced exam. 4. Scattered colonic diverticula without adjacent inflammatory changes to suggest diverticulitis. 5. Cholelithiasis partially contracted gallbladder. Assessment/Plan Assessment/Plan Assessment Intractable abdominal pain likely due to moderate left hydronephrosis with obstructing 7 mm calculus in the distal left ureter Intractable nausea and vomiting Right renal cyst Bilateral medullary nephrocalcinosis and multiple nonobstructing bilateral renal calculi Cholelithiasis partially contracted gallbladder likely due to obesity Tobacco cessation Obesity Anemia Ex meth user 4 years ago, quit Ex alcohol user 4 years ago, quit History of hypertension History of appendectomy History of tubal ligation Plan Admit to med surge Antiemetics Pain management Trend labs CT abdomen and pelvis noted NS 1 L given ED Flomax Pelvic ultrasound Kidney ultrasound ordered Lactic level UA Lipase HCG noted IV antibiotics-ceftriaxone IV fluids Home medications reconciled DVT prophylaxis-Lovenox PUD prophylaxis-not indicated, no history of GERD or GI bleed Discussed plan of care with patient and nurse Counseled patient on lifestyle modifications, diet, and exercise Counseled patient on cessation of tobacco use Urology consult Plan discussed with: Patient My Orders Orders - GILA SAN [employer] Procedure Category Date Status Time Tamsulosin PHA 10/17/24 Logged Hydrochloride (Flomax) 18:00 Sodium Chloride 0.9% PHA 10/17/24 Logged 12:15 Sodium Chloride 0.9% PHA 10/17/24 Logged 12:15 Ceftriaxone 1gm/50ml PHA 10/17/24 Logged D5w (Rocephin) 12:15 Kidney US 10/17/24 Logged 12:14 Admit ADMIT 10/17/24 Transmitted 12:14 Allergies DEONNA 10/17/24 In Process 12:14 Code Status CODE 10/17/24 Transmitted 12:14 Hydrocodone-Acet PHA 10/17/24 Logged 5/325mg Tab ([place] 12:15 Ondansetron Hcl PHA 10/17/24 Logged (Zofran) 12:15 Enoxaparin Sodium PHA 10/18/24 Logged (Lovenox) 10:00 Complete Blood Count LAB 10/18/24 Verified 04:00 Comprehensive LAB 10/18/24 Verified Metabolic Panel 04:00 Cardiac DIET 10/17/24 Transmitted Diet-2gna,Lofat,Lochol Lunch Acetaminophen Tablet PHA 10/17/24 Logged (Tylenol Tablet) 12:15 Morphine Sulfate PHA 10/17/24 Logged Injection 12:15 Lisinopril Tablet PHA 10/18/24 Logged (Zestril Tablet) 10:00 Date of Service: Oct 17, 2024 Billing Provider: GILA SAN Common Visit Codes: [id number] INP/OBS CARE (HIGH) GILA SAN Oct 17, 2024 12:53
--- NOTE | 2024-10-17 13:22 | DVHINCON2 ---
Date of service: Oct 17, 2024 Referring Physician Hospitalist Reason for Consultation Nephrolithiasis History of Present Illness Home Meds Active Scripts Lisinopril (Lisinopril) 20 Mg Tab, 1 TAB PO DAILY, #90 TAB 1 Refill Prov:TRACI MCGILL 09/06/23 Lisinopril (Lisinopril) 20 Mg Tab, 1 TAB PO DAILY, #30 TAB 2 Refills Prov:ARMAND TOWNSEND 01/12/23 Lisinopril (Lisinopril) 20 Mg Tab, 1 TAB PO DAILY, #30 TAB 1 Refill Prov:ARMAND TOWNSEND 09/15/22 Lisinopril (Lisinopril) 20 Mg Tab, 1 TAB PO DAILY, #30 TAB 5 Refills Prov:BARRY YOUNG MD 10/20/21 Discontinued Reported Medications Hydrochlorothiazide (Hydrochlorothiazide) 25 Mg Tab, 25 MG PO DAILY for 30 Days, MG 05/06/18 Chief Complaint of Abdominal/F: Abdominal pain, Vomiting, Nausea Location of Abdominal Onset: RLQ Cognition/Gait Neuro Symptoms/: Alert, Oriented x 3 Past Medical History Cardiac: HTN Past Surgical History: Appendectomy Family History: No pertinent Hx Smoker: Positive Drugs: Amphetimines Review of Systems Gastrointestinal: Nausea, Vomiting, Abdominal Pain H&P Exam Vital Signs Vital Signs Date Time Temp Pulse Resp B/P (MAP) Pulse Ox O2 Delivery O2 Flow Rate FiO2 10/17/24 12:37 76 16 159/98 10/17/24 12:30 98 Room Air 10/17/24 12:30 98.2 98.2 Labs/Xrays Labs Test 10/17/24 09:23 10/17/24 09:20 Range/Units White Blood Count 8.8 4.4-10.8 10^3/uL Red Blood Count 5.08 4.0-5.20 10^6/uL Hemoglobin 11.5 L 12.2-16.2 g/dL Hematocrit 35.5 L 36.0-46.0 % Mean Corpuscular Volume 69.9 L 80.0-100.0 fL Mean Corpuscular Hemoglobin 22.5 L 28.0-32.0 pg Mean Corpuscular Hemoglobin Concent 32.3 32.0-36.0 g/dL Red Cell Distribution Width 18.6 H 11.8-14.3 % Platelet Count 348 140-450 10^3/uL Mean Platelet Volume 8.5 6.9-10.8 fL Neutrophils (%) (Auto) 69.6 37.0-80.0 % Lymphocytes (%) (Auto) 22.0 10.0-50.0 % Monocytes (%) (Auto) 4.8 0.0-12.0 % Eosinophils (%) (Auto) 2.9 0.0-7.0 % Basophils (%) (Auto) 0.7 0.0-2.0 % Neutrophils # (Auto) 6.1 1.6-8.6 10 ^3/uL Lymphocytes # (Auto) 1.9 0.4-5.4 10 ^3/uL Monocytes # (Auto) 0.4 0-1.3 10 ^3/uL Eosinophils # (Auto) 0.3 0-0.8 10 ^3/uL Basophils # (Auto) 0.1 0-0.2 10 ^3/uL Nucleated Red Blood Cells 0.1 % Sodium Level 140 136-145 mmol/L Potassium Level 4.2 3.5-5.1 mmol/L Chloride Level 108 H 98-107 mmol/L Carbon Dioxide Level 24 20-31 mmol/L Anion Gap 8 5-15 Blood Urea Nitrogen 12 9-23 mg/dL Creatinine 0.88 0.550-1.02 mg/dL Glomerular Filtration Rate Calc 82 >90 mL/min BUN/Creatinine Ratio 13.6 10.0-20.0 Serum Glucose 94 74-106 mg/dL Lactic Acid Level 1.0 0.4-2.0 mmol/L Calcium Level 10.0 8.7-10.4 mg/dL Total Bilirubin 0.5 0.2-1.0 mg/dL Aspartate Amino Transferase (AST) 13 13-40 U/L Alanine Aminotransferase (ALT) 14 7-40 U/L Alkaline Phosphatase 84 46-116 U/L Total Protein 7.6 5.7-8.2 g/dL Albumin 4.8 3.2-4.8 g/dL Lipase 44 12-53 U/L Beta HCG, Quantitative 0.4 L 1.5-4.2 mIU/mL Urine Color Colorless Yellow Urine Clarity Clear Clear Urine pH 6.5 5.0-9.0 Urine Specific [place] 1.011 1.001-1.035 Urine Protein Trace H Negative Urine Ketones Negative Negative Urine Blood 2+ H Negative /uL Urine Nitrite Negative Negative Urine Bilirubin Negative Negative Urine Urobilinogen Normal Negative mg/dL Urine Leukocyte Esterase Negative Negative /uL Urine RBC 62 0 - 4 /hpf Urine Microscopic WBC 3 0-5 /HPF Urine Squamous Epithelial Cells Few <5 /hpf Urine Bacteria None seen None Seen /hpf Urine Glucose Normal Normal mg/dL Assessment/Plan Problem List: (1) Hematuria (2) Nephrolithiasis (3) Hydronephrosis Plan Control pain. Nephrostomy placement via IR service. Consult for HH for nephrostomy drsg changes twice weekly until definitive management of left distal obstructing calculus. Due to insurance being out of area pt krishan need to f/u with PCP for referral to in network urologist. Nephrostomy to be removed or exchanged every 8-12 weeks fo as long as needed. JOHNSON MALDONADO NP Oct 17, 2024 13:22
[2024-10-17] MEDS: cefTRIAXone 1GM/50ML D5W 50 ML IV SCH (13:26)
--- NOTE | 2024-10-17 13:36 | DVH ---
RENAL ULTRASOUND CLINICAL HISTORY: pain TECHNIQUE: Multiple ultrasound images of the kidneys and bladder were obtained. COMPARISON: CT abdomen pelvis 10/17/2024 FINDINGS: The right kidney measures 10.5 cm in length. The left kidney measures 11.7 cm. There is moderate left renal hydronephrosis. There is a 6 mm calculus in the midpole of the left kidney. There is a 9 mm ca lculus in the midpole of the right kidney. There is no right renal hydronephrosis. The renal pyramid s appear echogenic May relate to medullary nephrocalcinosis. There is a 2.6 cm cyst in the upper pole of the right kidney. The bladder appears within normal limits with prevoid volume measuring 289 cc. IMPRESSION: 1. Moderate left renal hydronephrosis. 2. Bilateral subcentimeter renal calculi. 3. The renal pyramids appear echogenic which May relate to medullary nephrocalcinosis. 4. 2.6 cm right renal cyst. HS:Y
[2024-10-17 13:52] LABS: INR 0.94 (0.9-1.15); Partial Thromboplastin Time 28.8 SEC (24.5-34.5)
[2024-10-17 14:01] VITALS: BP 152/81; PULSE 72; RESP 20; TEMP 97.6; O2SAT 98
[2024-10-17] MEDS: MANNITOL 20% SOLN 100 gm/500ml 100 ML IV ONE (15:30)
[2024-10-17] MEDS: SODIUM CHLORIDE 0.9% 1,000 ML IV SCH (15:33)
[2024-10-17 16:50] VITALS: BP 143/81; PULSE 79; RESP 18; TEMP 98.2; O2SAT 98
[2024-10-17 20:55] VITALS: BP_SYST 117; BP_SYST 160; BP_DIAS 54; BP_DIAS 75; PULSE 79; PULSE 87; RESP 18; RESP 20; TEMP 97.8; TEMP 98.1; O2SAT 96; O2SAT 97
[2024-10-18] VITALS (13 sets, daily range): BP systolic 94–144; BP diastolic 58–83; PULSE 47–81; RESP 7–20; TEMP 95.9–99; O2SAT 94–99
[2024-10-18 07:43] LABS: Alanine Aminotransferase 10 U/L (7-40); Albumin 4.3 g/dL (3.2-4.8); Alkaline Phosphatase 76 U/L (46-116); Anion Gap 9 (5-15); BUN/Creatinine Ratio 14.5 (10.0-20.0); Blood Urea Nitrogen 12 mg/dL (9-23); Calcium 9.4 mg/dL (8.7-10.4); Carbon Dioxide 24 mmol/L (20-31); Chloride 108 mmol/L (98-107); Glucose 95 mg/dL (74-106); Potassium 3.8 mmol/L (3.5-5.1); Sodium 141 mmol/L (136-145); Total Protein 6.9 g/dL (5.7-8.2)
[2024-10-18 07:44] LABS: Aspartate Aminotransferase 10 U/L (13-40); Bilirubin, Total 0.4 mg/dL (0.2-1.0)
[2024-10-18 07:54] LABS: Basophils # (auto) 0 10 ^3/uL (0-0.2); Eosinophils # (auto) 0.2 10 ^3/uL (0-0.8); Eosinophils % (auto) 3.2 % (0.0-7.0); Hemoglobin 10.4 g/dL (12.2-16.2); Nucleated Red Blood Cells % 0.1 %; White Blood Cell 7.2 10^3/uL (4.4-10.8)
[2024-10-18 07:57] LABS: Basophils % (auto) 0.5 % (0.0-2.0); Hematocrit 32.5 % (36.0-46.0); Lymphocytes # (auto) 1.9 10 ^3/uL (0.4-5.4); Lymphocytes % (auto) 26.8 % (10.0-50.0); Mean Corpuscular Hemoglobin 22.3 pg (28.0-32.0); Mean Corpuscular Hgb Conc. 32.1 g/dL (32.0-36.0); Mean Corpuscular Volume 69.6 fL (80.0-100.0); Monocytes # (auto) 0.5 10 ^3/uL (0-1.3); Monocytes % (auto) 6.3 % (0.0-12.0); Neutrophils # (auto) 4.6 10 ^3/uL (1.6-8.6); Neutrophils % (auto) 63.2 % (37.0-80.0); Platelet Count (auto) 307 10^3/uL (140-450); Red Blood Cells 4.67 10^6/uL (4.0-5.20); Red Cell Distribution Width 18.1 % (11.8-14.3)
[2024-10-18] MEDS: fentaNYL CITRATE 100 MCG/2 ML VL ONE (09:24)
[2024-10-18] MEDS: LIDOCAINE 2%HCL (LOCAL ANESTH.) INJ 20ML MDV ONE (09:25)
[2024-10-18] MEDS: MIDAZOLAM HCL 2MG/2ML 2ml VIAL (1mg/ml) ONE (09:25)
[2024-10-18] MEDS: ENOXAPARIN SOD 40 MG/0.4 ML SYRINGE SC SCH (10:00)
[2024-10-18] MEDS: LISINOPRIL 20 MG TAB PO SCH (10:00)
--- NOTE | 2024-10-18 10:17 | DVHPN2 ---
Subjective Feeling better after nephrostomy tube placement Reviewed: Care Plan, H&P, Labs, Medications, Previous Orders, Radiology, Other (Consult) Changes from previous H/P or p: Changes Objective Vitals Vital Signs Date Time Temp Pulse Resp B/P (MAP) Pulse Ox O2 Delivery O2 Flow Rate FiO2 10/18/24 08:12 Room Air* 0 21 10/18/24 05:00 98.3 70 20 130/81 (97) 97 98.3 Intake/Output Intake and Output 10/18/24 07:00 Intake Total 910 ml Output Total 200 ml Balance 710 ml Intake Oral 660 ml IV Total 250 ml Output Urine Total 200 ml # Voids 3 General Appearance: Alert, Oriented X3, Cooperative, No acute distress HEENT: Atraumatic Lungs: Clear to auscultation, Normal air movement Cardiovascular: Regular rate, Normal S1, Normal S2 Abdomen: Normal bowel sounds, Soft, No tenderness, Other (Left nephrostomy tube in place; clearing urine in nephrostomy bag) Neuro: Normal speech, Cranial nerves 3-12 NL Psych/Mental Status: Mental status NL, Mood NL Medications Current Medications Medications Dose Ordered Sig/Phillip Route Start Time Stop Time Status Last Admin Dose Admin Tamsulosin HCl 0.4 mg QPM PO 10/18/24 18:00 Sodium Chloride 1,000 ml @ 100 mls/hr Q10H IV 10/17/24 12:15 10/18/24 09:31 100 MLS/HR Ceftriaxone Sodium 50 ml @ 100 mls/hr DAILY@09 IV 10/17/24 12:15 10/17/24 13:26 100 MLS/HR Acetaminophen/ Hydrocodone Bitart 1 tab Q4HP PRN PO 10/17/24 12:15 Ondansetron HCl 4 mg Q4HP PRN IV 10/17/24 12:15 Enoxaparin Sodium 40 mg DAILY SC 10/18/24 10:00 Acetaminophen 650 mg Q6HP PRN PO 10/17/24 12:15 Morphine Sulfate 2 mg Q4HPRN PRN IV 10/17/24 12:15 Lisinopril 20 mg DAILY PO 10/18/24 10:00 Laboratory Results Laboratory Tests 10/18/24 06:55 Chemistry Test 10/18/24 06:55 Albumin 4.3 g/dL (3.2-4.8) Calcium Level 9.4 mg/dL (8.7-10.4) Total Protein 6.9 g/dL (5.7-8.2) LFT Test 10/18/24 06:55 Alanine Aminotransferase (ALT) 10 U/L (7-40) Alkaline Phosphatase 76 U/L (46-116) Aspartate Amino Transferase (AST) 10 U/L (13-40) L Total Bilirubin 0.4 mg/dL (0.2-1.0) Urinalysis Test 10/17/24 09:20 Urine Color Colorless (Yellow) Urine Clarity Clear (Clear) Urine pH 6.5 (5.0-9.0) Urine Specific [place] 1.011 (1.001-1.035) Urine Protein Trace (Negative) H Urine Ketones Negative (Negative) Urine Blood 2+ /uL (Negative) H Urine Nitrite Negative (Negative) Urine Bilirubin Negative (Negative) Urine Urobilinogen Normal mg/dL (Negative) Urine Leukocyte Esterase Negative /uL (Negative) Urine RBC 62 /hpf (0 - 4) Urine Microscopic WBC 3 /HPF (0-5) Urine Squamous Epithelial Cells Few /hpf (<5) Urine Bacteria None seen /hpf (None Seen) Urine Glucose Normal mg/dL (Normal) Labs and/or images reviewed: Labs reviewed by me, Image(s) reviewed by me Assessment/Plan Assessment/Plan A 48-year-old female patient; with past medical history of essential hypertension and tobacco use disorder; who presented to the emergency department with abdominal pain. #Bilaterally renal stones with left obstructive uropathy/moderate left renal hydronephrosis along with right renal cyst; status post left nephrostomy tube placement this morning by IR; evaluated by urology: Lithotripsy as outpatient; continue IV ceftriaxone; continue pain management as indicated; continue monitoring #Suspected VLAD in the setting of obstructive uropathy; can not rule out vasomotor nephropathy; avoid nephrotoxic agents; continue IVF; continue monitoring #Abdominal pain; resolved after left nephrostomy tube placement; details and management as above; continue monitoring #Essential hypertension; continue home antihypertensive medication, and change as indicated; continue monitoring #Tobacco use disorder; counseled for 16 minutes on tobacco use cessation; started on nicotine patch; history of marijuana/meth use disorder (last used 4 years ago) ;continue monitoring #Obesity; counseled the patient importance of adopting healthy lifestyle with diet and exercise in order to lose weight; continue monitoring #Normocytic anemia; most likely inflammatory; no signs/symptoms of active bleeding; continue monitoring Goals of care discussed with the patient for 20 minutes; full code Late Entry. This medical document was created using an electronic medical record system with computerized dictation system. Although this document has been carefully reviewed, there might still be some phonetic and typographical errors. These areas are purely typographical due to imperfections of the software programs, and do not reflect any compromise in the patient's medical care. Plan discussed with: Patient, Other (Nurse) Date of Service: Oct 18, 2024 Billing Provider: CORONA ELLINGTON MD Common Visit Codes: [id number] INP/OBS CARE(HIGH) Secondary Visit Codes: 35314-TWHPN CHNG SMOKING >10MIN (Counseled for 16 minutes on tobacco use cessation), 98340-SJDOUZYT CARE PLAN 30 MINUTES (20 minutes) CORONA ELLINGTON MD Oct 18, 2024 10:17
--- NOTE | 2024-10-18 11:35 | DVH ---
PROCEDURE: Genitourinary catheter placement Procedural Personnel Attending physician(s): Bolivar Kellogg Fellow physician(s): None Resident physician(s): None Advanced practice provider(s): None Pre-procedure diagnosis: Left hydroureteronephrosis Post-procedure diagnosis: Same Indication: Urinary obstruction No Additional clinical history: None Complications: No immediate complications. IMPRESSION: Left nephrostomy tube placement . Plan: Flush daily with 10cc normal saline to maintain patency. Follow up with urology. PROCEDURE SUMMARY - Target organ: Unilateral tunica-biloxi kidney - Image-guided placement of genitourinary catheter(s) - Additional procedure(s): None PROCEDURE DETAILS: Pre-procedure Consent: Informed consent for the procedure including risks, benefits and alternatives was obtained a nd time-out was performed prior to the procedure. Preparation: The site was prepared and draped using maximal sterile barrier technique including cutan eous antisepsis. Anesthesia/sedation Level of anesthesia/sedation: Moderate sedation (conscious sedation) Anesthesia/sedation administered by: Independent trained observer under attending supervision with co ntinuous monitoring of the patient s level of consciousness and physiologic status Total intra-service sedation time (minutes): 45 Genitourinary catheter placement Side:Left tunica-biloxi Local anesthesia was administered. A needle was advanced into a lower pole calyx under ultrasound an d fluoroscopy guidance. A wire was advanced, the tract was serially dilated and a nephrostomy tube w as placed . Contrast injection was performed . Genitourinary catheter placed: 8.5 Citizen [place] Findings: Decompression of left renal collecting system with nephrostomy retention loop in the renal pelvis External catheter securement: Non-absorbable suture Additional genitourinary system intervention Side:None Genitourinary intervention: None Location of intervention: Not applicable Device used: Not applicable Description of intervention: Not applicable Post-intervention findings: Not applicable Contrast Contrast agent: Visipaque 320 Contrast volume (mL): 10 Radiation Dose Fluoroscopy time (minutes ): 2.2 Reference air kerma (Not provided by imaging equipment ) Kerma area product (cGy-m2 ): 151.5 Additional Details Additional description of procedure: None Registry event: V /3 /f Device used: Not applicable Equipment details: None Specimens removed: None. A sample was not sent for analysis. Estimated blood loss (mL): Less than 10 Standardized report: [email or web address] Attestation Signer name: Bolivar Kellogg I attest that I was present for the entire procedure . I reviewed the stored images and agree with e report as written.
--- NOTE | 2024-10-18 11:37 | DVH ---
PROCEDURE: Genitourinary catheter placement Procedural Personnel Attending physician(s): Bolivar Kellogg Fellow physician(s): None Resident physician(s): None Advanced practice provider(s): None Pre-procedure diagnosis: Left hydroureteronephrosis Post-procedure diagnosis: Same Indication: Urinary obstruction No Additional clinical history: None Complications: No immediate complications. IMPRESSION: Left nephrostomy tube placement . Plan: Flush daily with 10cc normal saline to maintain patency. Follow up with urology. PROCEDURE SUMMARY - Target organ: Unilateral kletsel dehe wint[place] kidney - Image-guided placement of genitourinary catheter(s) - Additional procedure(s): None PROCEDURE DETAILS: Pre-procedure Consent: Informed consent for the procedure including risks, benefits and alternatives was obtained a nd time-out was performed prior to the procedure. Preparation: The site was prepared and draped using maximal sterile barrier technique including cutan eous antisepsis. Anesthesia/sedation Level of anesthesia/sedation: Moderate sedation (conscious sedation) Anesthesia/sedation administered by: Independent trained observer under attending supervision with co ntinuous monitoring of the patient s level of consciousness and physiologic status Total intra-service sedation time (minutes): 45 Genitourinary catheter placement Side:Left kletsel dehe w[place] Local anesthesia was administered. A needle was advanced into a lower pole calyx under ultrasound an d fluoroscopy guidance. A wire was advanced, the tract was serially dilated and a nephrostomy tube w as placed . Contrast injection was performed . Genitourinary catheter placed: 8.5 [place] Findings: Decompression of left renal collecting system with nephrostomy retention loop in the renal pelvis External catheter securement: Non-absorbable suture Additional genitourinary system intervention Side:None Genitourinary intervention: None Location of intervention: Not applicable Device used: Not applicable Description of intervention: Not applicable Post-intervention findings: Not applicable Contrast Contrast agent: Visipaque 320 Contrast volume (mL): 10 Radiation Dose Fluoroscopy time (minutes ): 2.2 Reference air kerma (Not provided by imaging equipment ) Kerma area product (cGy-m2 ): 151.5 Additional Details Additional description of procedure: None Registry event: V /3 /f Device used: Not applicable Equipment details: None Specimens removed: None. A sample was not sent for analysis. Estimated blood loss (mL): Less than 10 Standardized report: [email or web address] Attestation Signer name: Bolivar Kellogg I attest that I was present for the entire procedure . I reviewed the stored images and agree with e report as written.
[2024-10-18] MEDS: NICOTINE 14 MG/24HR TOPICAL PATCH TD ONE (14:18)
[2024-10-18] MEDS: HYDROcodone-ACET 5/325MG TAB PO PRN (14:19)
[2024-10-18] MEDS ORDERED: KETOROLAC TROMETH 30 MG/ML 1ML VIAL IV PRN (15:15)
[2024-10-18] MEDS: TAMSULOSIN HYDROCHLORIDE 0.4 MG CAP PO SCH (17:08)
[2024-10-18] MEDS: ONDANSETRON HCL 4 MG/2 ML VIAL IV PRN (17:08)
[2024-10-19 01:25] VITALS: BP 127/70; PULSE 80; RESP 18; TEMP 98.5; O2SAT 94
[2024-10-19 05:48] VITALS: BP 112/57; PULSE 69; RESP 18; TEMP 97.7; O2SAT 98
[2024-10-19 08:00] VITALS: PULSE 88; RESP 20; O2SAT 97
[2024-10-19 08:13] LABS: Eosinophils # (auto) 0.2 10 ^3/uL (0-0.8); Mean Corpuscular Volume 70.1 fL (80.0-100.0)
[2024-10-19 08:15] LABS: Basophils # (auto) 0.1 10 ^3/uL (0-0.2); Basophils % (auto) 1.8 % (0.0-2.0); Eosinophils % (auto) 2.8 % (0.0-7.0); Hematocrit 32.6 % (36.0-46.0); Hemoglobin 10.6 g/dL (12.2-16.2); Lymphocytes # (auto) 1.6 10 ^3/uL (0.4-5.4); Mean Corpuscular Hemoglobin 22.7 pg (28.0-32.0); Mean Corpuscular Hgb Conc. 32.4 g/dL (32.0-36.0); Monocytes # (auto) 0.5 10 ^3/uL (0-1.3); Monocytes % (auto) 5.8 % (0.0-12.0); Neutrophils # (auto) 5.3 10 ^3/uL (1.6-8.6); Neutrophils % (auto) 68.6 % (37.0-80.0); Platelet Count (auto) 298 10^3/uL (140-450); Red Blood Cells 4.65 10^6/uL (4.0-5.20); Red Cell Distribution Width 18.3 % (11.8-14.3); White Blood Cell 7.8 10^3/uL (4.4-10.8)
[2024-10-19 08:24] LABS: Anion Gap 6 (5-15); Carbon Dioxide 26 mmol/L (20-31); Chloride 106 mmol/L (98-107); Potassium 4.2 mmol/L (3.5-5.1); Sodium 138 mmol/L (136-145)
[2024-10-19 08:26] LABS: Calcium 9.8 mg/dL (8.7-10.4)
[2024-10-19 08:30] LABS: BUN/Creatinine Ratio 11.6 (10.0-20.0); Blood Urea Nitrogen 10 mg/dL (9-23)
[2024-10-19 08:39] LABS: Glucose 115 mg/dL (74-106)
[2024-10-19] MEDS: NICOTINE 14 MG/24HR TOPICAL PATCH TD SCH (09:13)
[2024-10-19] MEDS ORDERED: TAMS-35 PO (13:14)
--- NOTE | 2024-10-19 13:33 | DVHPN2 ---
Subjective No complaints after nephrostomy tube placement Reviewed: Care Plan, H&P, Labs, Medications, Previous Orders, Radiology, Other (Consult) Changes from previous H/P or p: Changes Objective Vitals Vital Signs Date Time Temp Pulse Resp B/P (MAP) Pulse Ox O2 Delivery O2 Flow Rate FiO2 10/19/24 09:15 142/74 10/19/24 05:48 97.7 69 18 98 97.7 10/18/24 20:00 Room Air* 0 21 Intake/Output Intake and Output 10/19/24 07:00 Intake Total 1000 ml Output Total 725 ml Balance 275 ml Intake Oral 900 ml IV Total 100 ml Output Urine Total 350 ml Other 375 ml # Voids 4 General Appearance: Alert, Oriented X3, Cooperative, No acute distress HEENT: Atraumatic Lungs: Clear to auscultation, Normal air movement Cardiovascular: Regular rate, Normal S1, Normal S2 Abdomen: Normal bowel sounds, Soft, No tenderness, Other (Left nephrostomy tube in place; clearing urine in nephrostomy bag) Neuro: Normal speech, Cranial nerves 3-12 NL Psych/Mental Status: Mental status NL, Mood NL Medications Current Medications Medications Dose Ordered Sig/Phillip Route Start Time Stop Time Status Last Admin Dose Admin Tamsulosin HCl 0.4 mg QPM PO 10/18/24 18:00 10/18/24 17:08 0.4 MG Sodium Chloride 1,000 ml @ 100 mls/hr Q10H IV 10/17/24 12:15 10/18/24 09:31 100 MLS/HR Ceftriaxone Sodium 50 ml @ 100 mls/hr DAILY@09 IV 10/17/24 12:15 10/19/24 09:13 100 MLS/HR Acetaminophen/ Hydrocodone Bitart 1 tab Q4HP PRN PO 10/17/24 12:15 10/18/24 14:19 1 TAB Ondansetron HCl 4 mg Q4HP PRN IV 10/17/24 12:15 10/18/24 17:08 4 MG Enoxaparin Sodium 40 mg DAILY SC 10/18/24 10:00 Acetaminophen 650 mg Q6HP PRN PO 10/17/24 12:15 Morphine Sulfate 2 mg Q4HPRN PRN IV 10/17/24 12:15 Lisinopril 20 mg DAILY PO 10/18/24 10:00 10/19/24 09:15 20 MG Nicotine 1 patch DAILY TD 10/19/24 10:00 10/19/24 09:13 1 PATCH Ketorolac Tromethamine 30 mg Q6HPRN PRN IV 10/18/24 15:15 10/23/24 15:14 UNV Laboratory Results Laboratory Tests 10/19/24 07:17 Chemistry Test 10/19/24 07:17 Calcium Level 9.8 mg/dL (8.7-10.4) Urinalysis Test 10/17/24 09:20 Urine Color Colorless (Yellow) Urine Clarity Clear (Clear) Urine pH 6.5 (5.0-9.0) Urine Specific [place] 1.011 (1.001-1.035) Urine Protein Trace (Negative) H Urine Ketones Negative (Negative) Urine Blood 2+ /uL (Negative) H Urine Nitrite Negative (Negative) Urine Bilirubin Negative (Negative) Urine Urobilinogen Normal mg/dL (Negative) Urine Leukocyte Esterase Negative /uL (Negative) Urine RBC 62 /hpf (0 - 4) Urine Microscopic WBC 3 /HPF (0-5) Urine Squamous Epithelial Cells Few /hpf (<5) Urine Bacteria None seen /hpf (None Seen) Urine Glucose Normal mg/dL (Normal) Labs and/or images reviewed: Labs reviewed by me, Image(s) reviewed by me Assessment/Plan Assessment/Plan A 48-year-old female patient; with past medical history of essential hypertension and tobacco use disorder; who presented to the emergency department with abdominal pain. #Bilaterally renal stones with left obstructive uropathy/moderate left renal hydronephrosis along with right renal cyst; status post left nephrostomy tube placement on 10/18/2024 by IR; evaluated by urology: Lithotripsy as outpatient; recieved IV ceftriaxone; to be discharged home on tamsulosin; to follow up with Dr. Patel within 2 weeks #Suspected VLAD in the setting of obstructive uropathy; can not rule out vasomotor nephropathy; avoid nephrotoxic agents; was on IVF; to follow up with the primary care provider within one week #Abdominal pain; resolved after left nephrostomy tube placement; to follow up with the primary care provider within one week #Essential hypertension; to resume home medication upon discharge #Tobacco use disorder; counseled on cessation; received nicotine patch; to follow up with the primary care provider within one week #Obesity; counseled the patient importance of adopting healthy lifestyle with diet and exercise in order to lose weight; to follow up with the primary care provider within one week #Normocytic anemia; most likely inflammatory; no signs/symptoms of active bleeding; to follow up with the primary care provider within one week Late Entry. This medical document was created using an electronic medical record system with computerized dictation system. Although this document has been carefully reviewed, there might still be some phonetic and typographical errors. These areas are purely typographical due to imperfections of the software programs, and do not reflect any compromise in the patient's medical care. Plan discussed with: Patient, Other (Nurse) My Orders Orders - CORONA ELLINGTON MD Procedure Category Date Status Time * Gate Cutter CONS 10/19/24 Transmitted Consult Date of Service: Oct 19, 2024 Billing Provider: CORONA ELLINGTON MD Common Visit Codes: 32062-[id number] INP/OBS CARE(MOD) CORONA ELLINGTON MD Oct 19, 2024 13:33
--- NOTE | 2024-10-19 13:35 | DVHDS2 ---
Discharge Summary Date of Admission Oct 17, 2024 at 12:14 Date of Discharge: Oct 19, 2024 Admitting Diagnosis Abdominal pain Wounds: Related to left nephrostomy tube placement Labs/Diagnostic Data: Laboratory Results Test 10/19/24 07:17 10/18/24 06:55 10/17/24 09:23 10/17/24 09:20 White Blood Count 7.8 10^3/uL (4.4-10.8) Red Blood Count 4.65 10^6/uL (4.0-5.20) Hemoglobin 10.6 g/dL (12.2-16.2) Hematocrit 32.6 % (36.0-46.0) Mean Corpuscular Volume 70.1 fL (80.0-100.0) Mean Corpuscular Hemoglobin 22.7 pg (28.0-32.0) Mean Corpuscular Hemoglobin Concent 32.4 g/dL (32.0-36.0) Red Cell Distribution Width 18.3 % (11.8-14.3) Platelet Count 298 10^3/uL (140-450) Mean Platelet Volume 8.7 fL (6.9-10.8) Neutrophils (%) (Auto) 68.6 % (37.0-80.0) Lymphocytes (%) (Auto) 21.0 % (10.0-50.0) Monocytes (%) (Auto) 5.8 % (0.0-12.0) Eosinophils (%) (Auto) 2.8 % (0.0-7.0) Basophils (%) (Auto) 1.8 % (0.0-2.0) Neutrophils # (Auto) 5.3 10 ^3/uL (1.6-8.6) Lymphocytes # (Auto) 1.6 10 ^3/uL (0.4-5.4) Monocytes # (Auto) 0.5 10 ^3/uL (0-1.3) Eosinophils # (Auto) 0.2 10 ^3/uL (0-0.8) Basophils # (Auto) 0.1 10 ^3/uL (0-0.2) Nucleated Red Blood Cells 0.0 % Sodium Level 138 mmol/L (136-145) Potassium Level 4.2 mmol/L (3.5-5.1) Chloride Level 106 mmol/L (98-107) Carbon Dioxide Level 26 mmol/L (20-31) Anion Gap 6 (5-15) Blood Urea Nitrogen 10 mg/dL (9-23) Creatinine 0.86 mg/dL (0.550-1.02) Glomerular Filtration Rate Calc 84 mL/min (>90) BUN/Creatinine Ratio 11.6 (10.0-20.0) Serum Glucose 115 mg/dL (74-106) Calcium Level 9.8 mg/dL (8.7-10.4) Total Bilirubin 0.4 mg/dL (0.2-1.0) Aspartate Amino Transferase (AST) 10 U/L (13-40) Alanine Aminotransferase (ALT) 10 U/L (7-40) Alkaline Phosphatase 76 U/L (46-116) Total Protein 6.9 g/dL (5.7-8.2) Albumin 4.3 g/dL (3.2-4.8) Prothrombin Time 10.0 sec (9.3-11.8) Prothrombin Time INR 0.94 (0.9-1.15) Activated Partial Thromboplast Time 28.8 SEC (24.5-34.5) Lactic Acid Level 1.0 mmol/L (0.4-2.0) Lipase 44 U/L (12-53) Beta HCG, Quantitative 0.4 mIU/mL (1.5-4.2) Urine Color Colorless (Yellow) Urine Clarity Clear (Clear) Urine pH 6.5 (5.0-9.0) Urine Specific [place] 1.011 (1.001-1.035) Urine Protein Trace (Negative) Urine Ketones Negative (Negative) Urine Blood 2+ /uL (Negative) Urine Nitrite Negative (Negative) Urine Bilirubin Negative (Negative) Urine Urobilinogen Normal mg/dL (Negative) Urine Leukocyte Esterase Negative /uL (Negative) Urine RBC 62 /hpf (0 - 4) Urine Microscopic WBC 3 /HPF (0-5) Urine Squamous Epithelial Cells Few /hpf (<5) Urine Bacteria None seen /hpf (None Seen) Urine Glucose Normal mg/dL (Normal) Other Laboratory Tests 10/19/24 07:17 Brief Hx & Hospital Course: A 48-year-old female patient; with past medical history of essential hypertension and tobacco use disorder; who presented to the emergency department with abdominal pain. #Bilaterally renal stones with left obstructive uropathy/moderate left renal hydronephrosis along with right renal cyst; status post left nephrostomy tube placement on 10/18/2024 by IR; evaluated by urology: Lithotripsy as outpatient; recieved IV ceftriaxone; to be discharged home on tamsulosin; to follow up with Dr. Patel within 2 weeks #Suspected VLAD in the setting of obstructive uropathy; can not rule out vasomotor nephropathy; avoid nephrotoxic agents; was on IVF; to follow up with the primary care provider within one week #Abdominal pain; resolved after left nephrostomy tube placement; to follow up with the primary care provider within one week #Essential hypertension; to resume home medication upon discharge #Tobacco use disorder; counseled on cessation; received nicotine patch; to follow up with the primary care provider within one week #Obesity; counseled the patient importance of adopting healthy lifestyle with diet and exercise in order to lose weight; to follow up with the primary care provider within one week #Normocytic anemia; most likely inflammatory; no signs/symptoms of active bleeding; to follow up with the primary care provider within one week Physical examination documented in the progress note of the day of discharge Late Entry. This medical document was created using an electronic medical record system with computerized dictation system. Although this document has been carefully reviewed, there might still be some phonetic and typographical errors. These areas are purely typographical due to imperfections of the software programs, and do not reflect any compromise in the patient's medical care. Consults/Reason for consult Urology for stones left renal hydronephrosis; IR for left nephrostomy tube placement Operations or Procedures Left nephrostomy tube placement Condition at Discharge: Stable Final Diagnosis/Problems List #Bilaterally renal stones with left obstructive uropathy/moderate left renal hydronephrosis along with right renal cyst; status post left nephrostomy tube placement Rest as above Discharge Disposition: Home Discharge Instruct/Medications Diet: Cardiac 2g Na,low cholest Activity: No Restrictions, As Tolerated Follow Up/Referral: To follow up with discharge clinic on October 28, 2024 at 8:00 a.m.; to follow up with Dr. Patel within two weeks Medications: To continue home lisinopril; prescribed tamsulosin Discharge Statement: "Patient was advised to return to the ER or call 911 if any headaches, dizziness, shortness of breath, chest pain, abdominal pain, bleeding, fevers, or worsening of medical condition. Patient was counseled about treatment plan, medications, possible side effects, patientverbalized understanding. All questions were answered to the best of my ability. This discharge took greater then 30 minutes in planning, reviewing documentation, counseling the patient, and discussing with other team members." ASSESSMENT ASSESSMENT Assessment Date of Service: Oct 19, 2024 Billing Provider: CORONA ELLINGTON MD Common Visit Codes: 88770-SCR/OBS DISCH DAY >30min CORONA ELLINGTON MD Oct 19, 2024 13:35
== END 2024-10-19 18:15 | disposition home or self-care (01) ==
LOC: ER 08:46 → OVERFLOW 12:14 → EAST 14:01
PROVIDERS: ADMIT Internal Medicine; ATTEND Internal Medicine
PROC: 0T9430Z Drainage of Left Kidney Pelvis with Drainage Device, Percutaneous Approach (ICD-10-PCS; principal; 2024-10-18)
DX: K80.20 Calculus of gallbladder without cholecystitis without obstruction (principal); N17.0 Acute kidney failure with tubular necrosis; N13.2 Hydronephrosis with renal and ureteral calculous obstruction; E83.59 Other disorders of calcium metabolism; E66.9 Obesity, unspecified; D64.9 Anemia, unspecified; N28.1 Cyst of kidney, acquired; I10 Essential (primary) hypertension; N29 Other disorders of kidney and ureter in diseases classified elsewhere; F17.210 Nicotine dependence, cigarettes, uncomplicated; Z79.899 Other long term (current) drug therapy; Z90.49 Acquired absence of other specified parts of digestive tract; Z98.51 Tubal ligation status; Z68.31 Body mass index [BMI] 31.0-31.9, adult
CPT/HCPCS: 36415; 50432; 74176; 74425; 76775; 76856; 76942; 80048; 80053; 81001; 83605; 83690; 84702; 85025; 85610; 85730; 86850; 86900; 86901; 99152; G0378; J2250; J2405

== ENCOUNTER 2024-11-16 10:47 | Emergency (ER) | payer MEDICAID ==
[~2024-11-16] VITALS: Ht 162.6 cm; Wt 77.0 kg
[~2024-11-16 10:47] MED LIST changes: -HYDR25TA4 PO; +TAMS-35 PO
[2024-11-16 11:06] VITALS: BP 132/82; PULSE 85; RESP 18; TEMP 98.8; O2SAT 97
== END 2024-11-16 11:06 | disposition left against medical advice (07) ==
LOC: ER 10:47
DX: M25.559 Pain in unspecified hip (principal); Z53.21 Procedure and treatment not carried out due to patient leaving prior to being seen by health care provider

== ENCOUNTER 2024-11-26 08:43 | Emergency (ER) | payer MEDICAID ==
[~2024-11-26] VITALS: Ht 154.9 cm; Wt 76.6 kg
[2024-11-26 09:07] VITALS: BP 129/79; PULSE 84; RESP 18; TEMP 97.6; O2SAT 96
--- NOTE | 2024-11-26 09:43 | ED.PDOC ---
History of Present Illness HPI Comments 49 y/o F, with PMHx of HTN, presents to the ED for CC of tube replacement. Patient states, she had a nephrostomy tube placed [id number] ago by d/t cholelithiasis; reports bag leaking as today (11/26/24). Patient relays, that bag is draining properly with slight pain to left her left flank area where neph rostomy tube is in place. No other symptoms or modifiers present at this time. Chief Complaint: Tube Replacement Time Seen by MD: 09:15 Primary Care Provider: ARNEL Garcia Notes: Nurses Notes, Medications, Allergies Allergies: Coded Allergies: NO KNOWN ALLERGIES (Unverified , 05/17/10) Home Meds Active Scripts Tamsulosin Hcl (Flomax) 0.4 Mg Cap, 0.4 MG PO QPM for 30 Days, #30 CAP Prov:CORONA ELLINGTON MD 10/19/24 Lisinopril (Lisinopril) 20 Mg Tab, 1 TAB PO DAILY, #30 TAB 5 Refills Prov:BARRY YOUNG MD 10/20/21 Information Source: Patient Mode of Arrival: Ambulatory Severity: Moderate Timing: Days Duration: Since onset Prehospital treatment: None Past Medical History PAST MEDICAL HISTORY: HTN Surgical History: Appendectomy, BTL CERTIFIED DIABETES EDUCATOR History: No Pertinent CERTIFIED DIABETES EDUCATOR History Family History Family History: Reviewed,noncontributory to illness Social History Smoker: Cigarettes Alcohol: Occasionally Drugs: Methamphetamine Lives In: Home All Other Systems: Reviewed and Negative ( PER HPI) Physical Exam General Appearance: No Apparent Distress, Normal HEENT: Normal ENT Inspection, Pharynx Normal, TMs Normal Neck: Full Range of Motion, Non-Tender, Normal, Normal Inspection Respiratory: Chest Non-Tender, Lungs Clear, No Accessory Muscle Use, No Respiratory Distress, Normal Breath Sounds Cardiovascular: No Edema, No JVD, No Murmur, No Gallop, Normal Peripheral Pulses, Regular Rate/Rhythm Breast Exam: Deferred Gastrointestinal: No Organomegaly, Non Tender, No Pulsatile Mass, Normal Bowel Sounds, Soft Genitalia: Deferred Pelvic: Deferred Rectal: Deferred Extremities: No calf tenderness, Normal capillary refill, Normal inspection, Normal range of motion, Non-tender, No pedal edema Musculoskeletal : Apperance: Normal Neurologic: Alert, network associate II-XII nml as Tested, No Motor Deficits, Normal Affect, Normal Mood, No Sensory Deficits Cerebellar Function: Normal Reflexes: Normal Skin: Dry, Normal Color, Warm Lymphatic: No Adenopathy Was a procedure done? Was a procedure done?: No Differential Dx Considerations may include: Nephrostomy bag replacement X-Ray, Labs, Meds, VS Vital Signs Date Time Temp Pulse Resp B/P (MAP) Pulse Ox O2 Delivery O2 Flow Rate FiO2 11/26/24 09:07 84 18 96 Room Air 11/26/24 09:07 97.6 84 18 129/79 (96) 96 97.6 11/26/24 08:46 97.6 84 18 129/79 (96) 96 97.6 X-Ray, Labs, Meds, VS Comment 49 y/o F, with PMHx of HTN, presents to the ED for CC of tube replacement. Patient arrives alert and oriented, ABC's intact, afebrile, vital signs stable, saturating well in room air No signs of cellulitis or complications at this time. Bag was changed without complications. Additional MDM Review of External, Non-ED records: External records reviewed. Discussion with independent historian (EMS, family) history obtained from the patient/parents (if applicable) at bedside Chronic conditions affecting care: None Social determinants of health affecting care: None Consideration of admission (observation or admission): I considered escalation of care to admission for this patient, however given the reassuring workup, the patient is safe for outpatient management. Time of 1ST Reevaluation: 09:45 Reevaluation 1ST: Improved Patient Education/Counseling: Diagnosis, Treatment Family Education/Counseling: No Family Present Departure 1 Departure Time of Disposition: 09:46 Impression: Primary Impression: Hydronephrosis Qualified Codes: N13.30 - Unspecified hydronephrosis Disposition: 01 HOME / SELF CARE / HOMELESS Condition: Stable Discharged With: Self Critical Care Note Critical Care Time?: No Stability Stability form required: No Heart Score Heart Score: Heart Score Response (Comments) Value History N/A 0 EKG N/A 0 Age N/A 0 Risk Factors N/A 0 Troponin N/A 0 Total 0 I personally scribed for TASNEEM MONTERO NP ([email or web address]) on 11/26/24 at 09:43. Electronically submitted by Rupa Dickerson ([email or web address]). TASNEEM MONTERO NP Nov 26, 2024 09:43
== END 2024-11-26 09:47 | disposition home or self-care (01) ==
LOC: ER 08:43
DX: N13.30 Unspecified hydronephrosis (principal); I10 Essential (primary) hypertension; F17.210 Nicotine dependence, cigarettes, uncomplicated; Z79.899 Other long term (current) drug therapy; Z90.49 Acquired absence of other specified parts of digestive tract; Z98.51 Tubal ligation status; Z98.890 Other specified postprocedural states

== ENCOUNTER 2024-12-06 15:53 | Emergency (ER) | payer MEDICAID ==
[~2024-12-06] VITALS: Ht 154.9 cm; Wt 76.4 kg
--- NOTE | 2024-12-06 16:13 | ED.PDOC ---
General HPI Comments This is a 49-year-old female presenting to the ED with chief complaint of nephrostomy concern. Patient reports that she had accidentally pulled on her nephrostomy tube earlier today, causing bleeding at the site and in her nephrostomy bag. Patient relays that she had her nephrostomy placed on 10/[address] Patel, however she has only had 1 follow-up since its placement and she is not sure of the next time she will see Dr. Patel to have it removed. Patient states she still has kidney stones in place in the left kidney. Patient denies any flank pain, dysuria, nausea, vomiting, diarrhea, abdominal pain, fever, or chills. Vital signs were stable on arrival. Time Seen by MD: 16:08 Primary Care Provider: ARNEL Garcia notes: Nurses Notes, Medications, Allergies Allergies: Coded Allergies: NO KNOWN ALLERGIES (Unverified , 05/17/10) Home Meds Active Scripts Tamsulosin Hcl (Flomax) 0.4 Mg Cap, 0.4 MG PO QPM for 30 Days, #30 CAP Prov:CORONA ELLINGTON MD 10/19/24 Lisinopril (Lisinopril) 20 Mg Tab, 1 TAB PO DAILY, #30 TAB 5 Refills Prov:BARRY YOUNG MD 10/20/21 Information Source: Patient Mode of Arrival: Ambulatory Severity: Moderate Timing: Hours Duration: Since onset Prehospital treatment: None Onset: Other (Accidentally pulled on nephrostomy tube) History of: Kidney stone Location: (L)Flank Past Medical History PAST MEDICAL HISTORY: HTN, Kidney Stones Surgical History: Appendectomy, BTL Surgical History (Other): Nephrostomy, left side 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 Family History Family History: Reviewed,noncontributory to illness Social History Smoker: Cigarettes Alcohol: Occasionally Drugs: Methamphetamine Lives In: Home Constitutional: denies: chills, diaphoresis, fatigue, fever, malaise, sweats, weakness, others EENTM: denies: blurred vision, double vision, ear bleeding, ear discharge, ear drainage, ear pain, ear ringing, eye pain, eye redness, hearing loss, mouth pain, mouth swelling, nasal discharge, nose bleeding, nose congestion, nose pain, photophobia, tearing, throat pain, throat swelling, voice changes, others Respiratory: denies: cough, hemoptysis, orthopnea, SOB at rest, shortness of breath, SOB with excertion, stridor, wheezing, others Cardiovascular: denies: chest pain, dizzy spells, diaphoresis, Dyspnea on exertion, edema, irregular heart beat, left arm pain, lightheadedness, palpitations, PND, syncope, others Gastrointestinal: denies: abdomen distended, abdominal pain, blood streaked bowels, constipated, diarrhea, dysphagia, difficulty swallowing, hematemesis, melena, nausea, poor appetite, poor fluid intake, rectal bleeding, rectal pain, vomiting, others Genitourinary: reports: others (Nephrostomy site bleeding); denies: abnormal vagina bleeding, burning, dyspareunia, dysuria, flank pain, frequency, hematuria, incontinence, pain, , vagina discharge, urgency Neurological: denies: dizziness, fainting, headache, left sided numbness, left sided weakness, numbness, paresthesia, pre-existing deficit, right sided numbness, right sided weakness, seizure, speech problems, tingling, tremors, weakness, others Musculoskeletal: denies: back pain, gout, joint pain, joint swelling, muscle pain, muscle stiffness, neck pain, others Integumetry: denies: bruises, change in color, change in hair/nails, dryness, laceration, lesions, lumps, rash, wounds, others Allergic/Immunocompromised: denies: Difficulty Healing, Frequent Infections, Hives, Itching, others Hematologic/Lymphatic: denies: anemia, blood clots, easy bleeding, easy bruising, swollen glands, others Endocrine: denies: excessive hunger, excessive sweating, excessive thirst, excessive urination, flushing, intolerance to cold, intolerance to heat, unexplained weight gain, unexplained weight loss, others Psychiatric: denies: anxiety, bipolar disorder, depression, hopeless, panic disorder, schizophrenia, sleepless, suicidal, others All Other Systems: Reviewed and Negative Physical Exam General Appearance: Moderate Distress ([id number] distress due to some nephrostomy site discomfort and anxiety related to bleeding concerns.), Obese HEENT: Normal ENT Inspection, Pharynx Normal, TMs Normal Neck: Full Range of Motion, Non-Tender, Normal, Normal Inspection Respiratory: Chest Non-Tender, Lungs Clear, No Accessory Muscle Use, No Respiratory Distress, Normal Breath Sounds Cardiovascular: No Edema, No JVD, No Murmur, No Gallop, Normal Peripheral Pulses, Regular Rate/Rhythm Breast Exam: Deferred Gastrointestinal: Other (Patient displays a left-sided nephrostomy trauma with some localized bleeding as well as bleeding throughout the nephrostomy tube and sac. Bleeding appears to be controlled at time of evaluation.) Genitalia: Deferred Pelvic: Deferred Rectal: Deferred Extremities: No calf tenderness, Normal capillary refill, Normal inspection, Normal range of motion, Non-tender, No pedal edema Neurologic: Alert, No Motor Deficits, Normal Affect, Normal Mood, No Sensory Deficits Cerebellar Function: Normal Reflexes: Normal Skin: Dry, Normal Color, Warm Lymphatic: No Adenopathy Was a procedure done? Was a procedure done?: No Differential Diagnosis Kidney stone (Female): Other (Dislodged nephrostomy tube) X-Ray, Labs, Meds, VS Vital Signs Date Time Temp Pulse Resp B/P (MAP) Pulse Ox O2 Delivery O2 Flow Rate FiO2 12/06/24 16:53 77 17 97 Room Air* 0 21 12/06/24 16:53 97.0 77 17 159/94 (115) 97 97.0 12/06/24 16:16 97.4 110 20 141/85 (103) 96 97.4 Current Medications Medications (Trade) Dose Ordered Sig/Phillip Route Start Time Stop Time Status Last Admin Acetaminophen/ Hydrocodone Bitart ([place] 10/325MG Tab) 1 tab ONCE ONCE PO 12/06/24 16:15 12/06/24 16:16 DC 12/06/24 16:50 X-Ray, Labs, Meds, VS Comment I attempted to contact us relieved directly, but was only able to reach his AP P provider arranged. We discussed the case and she advised that there was no Interventional Radiology at our location for at [facility]. Patient is scheduled for a nephrostomy removal next week at [facility]. She advised CT imaging of the site to confirm placement. If placement secure, she states that the patient's bleeding should stop in the next day or two and she should maintain her scheduled nephrostomy excision. CT evaluation was reviewed by me personally and confirmed good placement of the nephrostomy tube. Patient will be discharged home with pain medication and advised to follow up with her urologist as scheduled. Maribel will evaluate the patient's concerns when she arrives with the facility prior to the patient leaving the campus. Time of 1ST Reevaluation: 17:15 Reevaluation 1ST: Improved Consultation: PCP, Urology Patient Education/Counseling: Diagnosis, Treatment Family Education/Counseling: Diagnosis, Treatment, No Family Present Departure 1 Departure Time of Disposition: 17:15 Impression: Primary Impression: Nephrostomy complication Disposition: 01 HOME / SELF CARE / HOMELESS Condition: Stable Additional Instructions: Advised pain medication as needed and additionally, patient should maintain her appointment next week with Urology for nephrostomy removal. e-Prescriptions Hydrocodone-Acetaminophen (Hydrocodone Bitartrate/AC 5-325 mg) 1 Tab Tab 1 TAB PO Q6HP PRN, #15 TAB Prov: DIANNA ROSA PAC 12/06/24 Discharged With: Self, Friend Critical Care Note Critical Care Time?: No Stability Stability form required: No Heart Score Heart Score: Heart Score Response (Comments) Value History N/A 0 EKG N/A 0 Age N/A 0 Risk Factors N/A 0 Troponin N/A 0 Total 0 I personally scribed for MERCEDES THACKER MD ([email or web address]) on 12/06/24 at 16:13. Electronically submitted by Kobe Cruz ([email or web address]). MERCEDES THACKER MD Dec 06, 2024 16:13 DIANNA ROSA PAC Dec 06, 2024 17:17
[2024-12-06] MEDS: HYDROcodone-ACET 10/325MG TAB PO ONE (16:50)
[2024-12-06 16:53] VITALS: BP 159/94; PULSE 77; RESP 17; TEMP 97; O2SAT 97
--- NOTE | 2024-12-06 17:09 | DVH ---
Exam: CT CT AB PEL WO CON-NO ORAL OR IV History: Confirm left side nephrostomy placement Comparison Study: CT CT AB PEL WO CON-NO ORAL OR IV on DOS: 10/17/24 TECHNIQUE: Multidetector CT of the abdomen was performed from lung bases to pubic symphysis. Imaging was performed without IV contrast. Axial, coronal and sagittal multiplanar reformats were obtained fr om the axial data set by the technologist. Radiation Dose Information: CT Dose: CTDI volume is 13.55 mGy. Dose-length product is 728.79 mGy*cm FINDINGS: Evaluation of solid organs is limited due to lack of intravenous contrast use. Findings: Lung Bases: No acute or significant lung base finding. Normal heart size. No pleural or pericardial effusion. Liver: The liver is normal in size. No focal lesions. Gallbladder and Biliary Tree: Questionable small gallstone in the neck of the gallbladder. Spleen: Unremarkable Pancreas: The pancreas is grossly normal in appearance. Adrenal Glands: Unremarkable Kidneys: Multiple right renal calculi. Multiple left renal calculi with nephrostomy tube in place no significant hydronephrosis. No abnormal fluid collections around the left kidney or in the subcutane ous tissues. Bladder: Grossly unremarkable for degree of distention. Bowel: The stomach is grossly normal in appearance. Small bowel and colon are normal in caliber and d istribution. The appendix is not visualized; however, no secondary findings of acute appendicitis id entified. Ascites: Absent Lymphadenopathy: No mesenteric, retroperitoneal or periportal lymphadenopathy. Abdominal Wall and Mesentery: Unremarkable. Vasculature: The visualized abdominal aorta is normal in size and caliber. Evaluation of abdominal a nd pelvic vessels is limited due to lack of intravenous contrast. Pelvic Organs: Unremarkable Musculoskeletal: No aggressive focal bony lesions, acute fractures or dislocation. Soft tissues: Unremarkable IMPRESSION: 1. Bilateral renal calculi. 2. Left-sided nephrostomy tube in good position no perinephric fluid collections or subcutaneous flui d collections. Radiation optimization: All CT scans at this facility use at least one of these dose optimization merline hniques: automated exposure control mA and/or kV adjustment per patient size (includes targeted exam s where dose is matched to clinical indication) or iterative reconstruction.
[2024-12-06] MEDS ORDERED: HYDR-4902 PO (17:16)
== END 2024-12-06 17:24 | disposition home or self-care (01) ==
LOC: ER 15:53
DX: N99.528 Other complication of incontinent external stoma of urinary tract (principal); I10 Essential (primary) hypertension; N20.0 Calculus of kidney; F17.210 Nicotine dependence, cigarettes, uncomplicated; Z79.899 Other long term (current) drug therapy; Z90.49 Acquired absence of other specified parts of digestive tract; Z98.51 Tubal ligation status
CPT/HCPCS: 74176

== ENCOUNTER 2024-12-14 11:43 | Inpatient (IN) | payer MEDICAID ==
[~2024-12-14] VITALS: Ht 154.9 cm; Wt 77.0 kg
[~2024-12-14 11:43] MED LIST changes: +HYDR-4902 PO
--- NOTE | 2024-12-14 14:23 | ED.PDOC ---
General HPI Comments This is a 49 year old female presenting to the ED with chief complaint of left flank pain and fever. Patient reports that she has been experiencing a fever with associated chills and cloudy urine output in her nephrostomy bag since this morning. Patient relays that she had her nephrostomy placed on 10/19/24, but was seen on 12/06/24 due to accidentally pulling on it. Patient states that she had a previous lithotripsy to the left kidney due to kidney stones. Patient denies any N/V, abdominal pain, dysuria, hematuria, or dizziness. Chief Complaint: Flu like Time Seen by MD: 14:20 Primary Care Provider: ARNEL Garcia notes: Nurses Notes, Medications, Allergies Allergies: Coded Allergies: NO KNOWN ALLERGIES (Unverified , 05/17/10) Home Meds Active Scripts Hydrocodone-Acetaminophen (Hydrocodone Bitartrate/AC 5-325 mg) 1 Tab Tab, 1 TAB PO Q6HP PRN, #15 TAB Prov:DIANNA ROSA PAC 12/06/24 Tamsulosin Hcl (Flomax) 0.4 Mg Cap, 0.4 MG PO QPM for 30 Days, #30 CAP Prov:CORONA ELLINGTON MD 10/19/24 Lisinopril (Lisinopril) 20 Mg Tab, 1 TAB PO DAILY, #30 TAB 5 Refills Prov:BARRY YOUNG MD 10/20/21 Information Source: Patient, Relative (Mother) Mode of Arrival: Ambulatory Severity: Moderate Inability to void: Moderate Timing: Hours Duration: Since onset Prehospital treatment: None Onset: Spontaneous History of: Kidney stone Location: (L)Flank Past Medical History PAST MEDICAL HISTORY: HTN, Kidney Stones Surgical History: Appendectomy, BTL Surgical History (Other): left nephrostomy 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 Family History Family History: Reviewed,noncontributory to illness Social History Smoker: Cigarettes Alcohol: Occasionally Drugs: Methamphetamine Lives In: Home Constitutional: reports: chills, fever; denies: diaphoresis, fatigue, malaise, sweats, weakness, others EENTM: denies: blurred vision, double vision, ear bleeding, ear discharge, ear drainage, ear pain, ear ringing, eye pain, eye redness, hearing loss, mouth pain, mouth swelling, nasal discharge, nose bleeding, nose congestion, nose pain, photophobia, tearing, throat pain, throat swelling, voice changes, others Respiratory: denies: cough, hemoptysis, orthopnea, SOB at rest, shortness of breath, SOB with excertion, stridor, wheezing, others Cardiovascular: denies: chest pain, dizzy spells, diaphoresis, Dyspnea on exertion, edema, irregular heart beat, left arm pain, lightheadedness, palpitations, PND, syncope, others Gastrointestinal: denies: abdomen distended, abdominal pain, blood streaked bowels, constipated, diarrhea, dysphagia, difficulty swallowing, hematemesis, melena, nausea, poor appetite, poor fluid intake, rectal bleeding, rectal pain, vomiting, others Genitourinary: reports: others (Cloudy urine); denies: abnormal vagina bleeding, burning, dyspareunia, dysuria, flank pain, frequency, hematuria, incontinence, pain, , vagina discharge, urgency Neurological: denies: dizziness, fainting, headache, left sided numbness, left sided weakness, numbness, paresthesia, pre-existing deficit, right sided numbness, right sided weakness, seizure, speech problems, tingling, tremors, weakness, others Musculoskeletal: denies: back pain, gout, joint pain, joint swelling, muscle pain, muscle stiffness, neck pain, others Integumetry: denies: bruises, change in color, change in hair/nails, dryness, laceration, lesions, lumps, rash, wounds, others Allergic/Immunocompromised: denies: Difficulty Healing, Frequent Infections, Hives, Itching, others Hematologic/Lymphatic: denies: anemia, blood clots, easy bleeding, easy bruising, swollen glands, others Endocrine: denies: excessive hunger, excessive sweating, excessive thirst, excessive urination, flushing, intolerance to cold, intolerance to heat, unexplained weight gain, unexplained weight loss, others Psychiatric: denies: anxiety, bipolar disorder, depression, hopeless, panic disorder, schizophrenia, sleepless, suicidal, others All Other Systems: Reviewed and Negative Physical Exam General Appearance: No Apparent Distress, Normal HEENT: Normal ENT Inspection, PERRL/EOMI Neck: Full Range of Motion, Non-Tender, Normal, Normal Inspection Respiratory: Chest Non-Tender, Lungs Clear, No Accessory Muscle Use, No Respiratory Distress, Normal Breath Sounds Cardiovascular: No Edema, No JVD, No Murmur, No Gallop, Normal Peripheral Pulses, Regular Rate/Rhythm Breast Exam: Deferred Gastrointestinal: No Organomegaly, Non Tender, No Pulsatile Mass, Normal Bowel Sounds, Soft, Other (Nephrostomy tube in place on left side) Genitalia: Deferred Pelvic: Deferred Rectal: Deferred Extremities: No calf tenderness, Normal capillary refill, Normal inspection, Normal range of motion, Non-tender, No pedal edema Musculoskeletal : Apperance: Normal Neurologic: Alert, insurance verification specialist II-XII nml as Tested, No Motor Deficits, Normal Affect, Normal Mood, No Sensory Deficits Cerebellar Function: Normal Reflexes: Normal Skin: Dry, Normal Color, Warm Lymphatic: No Adenopathy Was a procedure done? Was a procedure done?: No Differential Diagnosis Kidney stone (Female): Bowel obstruction, Musculoskeletal pain, Pyelonephritis, Renal failure, Strain, Urinary obstruction, Urolithiasis Urinary Problem (Female): Pyelonephritis, Urinary retention, Urolithiasis, UTI X-Ray, Labs, Meds, VS Vital Signs Date Time Temp Pulse Resp B/P (MAP) Pulse Ox O2 Delivery O2 Flow Rate FiO2 12/14/24 12:01 100.9 130 18 120/80 (93) 97 100.9 Lab Test 12/14/24 14:34 Range/Units White Blood Count 18.0 H 4.4-10.8 10^3/uL Red Blood Count 4.77 4.0-5.20 10^6/uL Hemoglobin 11.1 L 12.2-16.2 g/dL Hematocrit 34.6 L 36.0-46.0 % Mean Corpuscular Volume 72.5 L 80.0-100.0 fL Mean Corpuscular Hemoglobin 23.3 L 28.0-32.0 pg Mean Corpuscular Hemoglobin Concent 32.2 32.0-36.0 g/dL Red Cell Distribution Width 20.7 H 11.8-14.3 % Platelet Count 298 140-450 10^3/uL Mean Platelet Volume 8.0 6.9-10.8 fL Neutrophils (%) (Auto) 88.0 H 37.0-80.0 % Lymphocytes (%) (Auto) 5.0 L 10.0-50.0 % Monocytes (%) (Auto) 6.7 0.0-12.0 % Eosinophils (%) (Auto) 0.1 0.0-7.0 % Basophils (%) (Auto) 0.2 0.0-2.0 % Neutrophils # (Auto) 15.8 H 1.6-8.6 10 ^3/uL Lymphocytes # (Auto) 0.9 0.4-5.4 10 ^3/uL Monocytes # (Auto) 1.2 0-1.3 10 ^3/uL Eosinophils # (Auto) 0 0-0.8 10 ^3/uL Basophils # (Auto) 0 0-0.2 10 ^3/uL Nucleated Red Blood Cells 0.0 % Sodium Level 138 136-145 mmol/L Potassium Level 3.4 L 3.5-5.1 mmol/L Chloride Level 103 98-107 mmol/L Carbon Dioxide Level 23 20-31 mmol/L Anion Gap 12 5-15 Blood Urea Nitrogen 7 L 9-23 mg/dL Creatinine 1.14 H 0.550-1.02 mg/dL Glomerular Filtration Rate Calc 59 >90 mL/min BUN/Creatinine Ratio 6.1 L 10.0-20.0 Serum Glucose 137 H 74-106 mg/dL Calcium Level 10.2 8.7-10.4 mg/dL Time of 1ST Reevaluation: 15:19 Reevaluation 1ST: Unchanged Patient Education/Counseling: Diagnosis, Treatment, Prognosis, Need For Follow Up Family Education/Counseling: Diagnosis, Treatment, Prognosis, Need For Follow Up Comments pt has evidence of sepsis, but the nephrostomy tube appears normal and ct is unremarkable. however, this is remains the most likely source. she will be admitted for ivf and abx and consult Additional Information Previous visits reviewed: 12/06/24 for nephrostomy complication The following tests were ordered, and results were reviewed by me: CBC, BMP, UA, CT Abd/Pel Additional Information was gathered from interviewing the following independent historians: Mother I reviewed and agreed with the following test results read by other providers: CT Abd/Pel I discussed treatment and results with medical personnel and: patient and mother Comprehensive systems review obtained and negative except for what is stated in the HPI. SEPSIS Sepsis Screen Date sepsis recognized/suspect: Dec 14, 2024 Time Sepsis recognized/suspect: 1155 Recent Procedure: No On Antibiotic Therapy: No Respiratory Rate >20: No Heart Rate >90: No Temp<36 C (96.8 F) or >38.3 C: Yes SBP <90 or MAP <65 mmHG: No New Acute Mental Status Change: No Is the patient on CPAP, BIPAP,: No Physician Orders Urinalysis (12/14/24 14:06) Ct Ab Pel Wo Con-No Oral Or Iv (12/14/24 14:06) Complete Blood Count (12/14/24 15:50) Comprehensive Metabolic Panel (12/14/24 15:50) Urinalysis (12/14/24 15:50) Accucheck (12/14/24 15:50) Lactated Ringer's (12/14/24 16:00) Blood Culture (12/14/24 15:50) Vancomycin 1gm/200ml Pm (12/14/24 16:00) Lactic Acid W/ Reflex Order (12/14/24 16:00) Lactic Acid W/ Reflex Order (12/14/24 18:00) Cefepime 2 Gm Q8hr (12/14/24 22:00) Notify Md If Map <65 Or Bp<90 (12/14/24 15:50) If Map<65 Start Vasopressor (12/14/24 15:50) Vital Signs Date Time Temp Pulse Resp B/P (MAP) Pulse Ox O2 Delivery O2 Flow Rate FiO2 12/14/24 12:01 100.9 130 18 120/80 (93) 97 100.9 Laboratory Tests Test 12/14/24 14:34 White Blood Count 18.0 10^3/uL (4.4-10.8) H Reassessment Post Fluid SEPSIS FOCUS EXAM(REASSESSMENT Sepsis reassessment focused exam completed. Date: 12/14/24 Time 15:53 Departure 1 Departure Time of Disposition: 15:52 Impression: Primary Impression: Sepsis Disposition: 09 ADMITTED INPATIENT Admit to: Med Surg Condition: Serious Discharged With: Self, Relative Critical Care Note Critical Care Time?: Yes (55 min-critical care time only) Critical care comment: Due to concerns for patients condition deteriorating, the care required my highest level of attention and readiness to intervene. I assessed the patient, reviewed the medical records, ordered the appropriate tests and treatments, then reassessed for results and responsiveness. I communicated with medical personnel and consultants and formulated a plan of care. Total critical care time excludes any procedures Stability Stability form required: No Heart Score Heart Score: Heart Score Response (Comments) Value History N/A 0 EKG N/A 0 Age N/A 0 Risk Factors N/A 0 Troponin N/A 0 Total 0 I personally scribed for DAVID HENAO MD ([email or web address]) on 12/14/24 at 14:23. Electronically submitted by Kobe Cruz ([email or web address]). DAVID HENAO MD Dec 14, 2024 14:23
--- NOTE | 2024-12-14 14:49 | DVH ---
Exam: CT CT AB PEL WO CON-NO ORAL OR IV History: dysuria, left flank pain Comparison Study: CT CT AB PEL WO CON-NO ORAL OR IV on DOS: 12/06/24, CT CT AB PEL WO CON-NO ORAL OR I V on DOS: 10/17/24 TECHNIQUE: Multidetector CT of the abdomen was performed from lung bases to pubic symphysis. Imaging was performed without IV contrast. Axial, coronal and sagittal multiplanar reformats were obtained fr om the axial data set by the technologist. Radiation Dose Information: CT Dose: CTDI volume is 12.21 mGy. Dose-length product is 71.7 mGy*cm FINDINGS: Evaluation of solid organs is limited due to lack of intravenous contrast use. Findings: Lung Bases: No acute or significant lung base finding. Normal heart size. No pleural or pericardial effusion. Liver: The liver is normal in size. No focal lesions. Gallbladder and Biliary Tree: Unremarkable Spleen: Unremarkable Pancreas: The pancreas is grossly normal in appearance. Adrenal Glands: Unremarkable Kidneys: Nephrostomy tube in place loop is slightly larger in the renal pelvis, but is still in good position in the kidney Multiple right renal calculi are seen Bladder: Grossly unremarkable for degree of distention. Bowel: The stomach is grossly normal in appearance. Small bowel and colon are normal in caliber and d istribution. The appendix is not visualized; however, no secondary findings of acute appendicitis id entified. Ascites: Absent Lymphadenopathy: No mesenteric, retroperitoneal or periportal lymphadenopathy. Abdominal Wall and Mesentery: Unremarkable. Vasculature: The visualized abdominal aorta is normal in size and caliber. Evaluation of abdominal a nd pelvic vessels is limited due to lack of intravenous contrast. Pelvic Organs: Unremarkable Musculoskeletal: No aggressive focal bony lesions, acute fractures or dislocation. Soft tissues: Unremarkable IMPRESSION: 1. Left sided nephrostomy tube in place with minimal change. Radiation optimization: All CT scans at this facility use at least one of these dose optimization merline hniques: automated exposure control mA and/or kV adjustment per patient size (includes targeted exam s where dose is matched to clinical indication) or iterative reconstruction. HS:Y
[2024-12-14 14:51] LABS: Basophils # (auto) 0 10 ^3/uL (0-0.2); Basophils % (auto) 0.2 % (0.0-2.0); Eosinophils # (auto) 0 10 ^3/uL (0-0.8); Eosinophils % (auto) 0.1 % (0.0-7.0); Hematocrit 34.6 % (36.0-46.0); Hemoglobin 11.1 g/dL (12.2-16.2); Lymphocytes # (auto) 0.9 10 ^3/uL (0.4-5.4); Mean Corpuscular Hemoglobin 23.3 pg (28.0-32.0); Mean Corpuscular Hgb Conc. 32.2 g/dL (32.0-36.0); Mean Corpuscular Volume 72.5 fL (80.0-100.0); Monocytes # (auto) 1.2 10 ^3/uL (0-1.3); Monocytes % (auto) 6.7 % (0.0-12.0); Neutrophils # (auto) 15.8 10 ^3/uL (1.6-8.6); Platelet Count (auto) 298 10^3/uL (140-450); Red Blood Cells 4.77 10^6/uL (4.0-5.20); Red Cell Distribution Width 20.7 % (11.8-14.3)
[2024-12-14 15:00] LABS: Chloride 103 mmol/L (98-107); Sodium 138 mmol/L (136-145)
[2024-12-14 15:01] LABS: Anion Gap 12 (5-15); Carbon Dioxide 23 mmol/L (20-31)
[2024-12-14 15:02] LABS: Calcium 10.2 mg/dL (8.7-10.4)
[2024-12-14 15:06] LABS: BUN/Creatinine Ratio 6.1 (10.0-20.0)
[2024-12-14 15:07] LABS: Blood Urea Nitrogen 7 mg/dL (9-23); Glucose 137 mg/dL (74-106); Potassium 3.4 mmol/L (3.5-5.1)
[2024-12-14] MEDS: VANCOMYCIN 1GM/200ML PM 200 ML IV ONE (19:52)
[2024-12-14] MEDS: LACTATED RINGER'S 1,450 ML IV ONE (19:55)
[2024-12-14] MEDS ORDERED: VANCOMYCIN PER PHARMACY 0 MG IV SCH (20:45)
[2024-12-14] MEDS ORDERED: DOCUSATE SOD 100 MG CAP PO PRN (20:45)
[2024-12-14] MEDS: POTASSIUM CHL 20 Meq TABLET PO ONE (21:27)
[2024-12-14] MEDS: SODIUM CHLORIDE 0.9% 1,000 ML IV SCH (21:27)
[2024-12-14] MEDS: SODIUM CHLORIDE 0.9% 500 ML IV ONE (21:28)
[2024-12-14 21:40] LABS: Urine Bacteria FEW /hpf (None Seen); Urine Blood 2+ /uL (Negative); Urine Clarity Turbid (Clear); Urine Color Colorless (Yellow); Urine Mucus FEW (None Seen); Urine Protein, UAD 2+ (Negative); Urine Specific Gravity 1.011 (1.001-1.035); Urine Squamous Epithelial Cell FEW /hpf (<5); Urine Urobilinogen Normal (Negative); Urine WBC 87 /HPF (0-5)
[2024-12-14] MEDS: CEFEPIME 1GM/ 50ML 50 ML IV SCH (22:14)
--- NOTE | 2024-12-14 22:39 | DVHHP2 ---
History of Present Illness Reason for Visit: Sepsis, unspecified organism History of Present Illness The patient is a 49 years old female with past medical history of kidney stones and hypertension presented to [facility] ED with complaint of left flank pain and fever. Patient reports that she has been experiencing fever associated with chills, noted to have cloudy urine output in her nephrostomy bag since this morning. Reports that she had her nephrostomy placed on 10/19/24, but was seen on 12/06/24 due to accidentally pulling on it. Patient was seen and evaluated in the ED, laboratory data shows WBC 18.0, hemoglobin 11.1, hematocrit 34.6, platelets 298, sodium 138, potassium 3.4, BUN seven, creatinine 1.14, GFR 59, glucose 137, calcium 10.2, blood pressure 106/71, heart rate 130 trending down to 98, temperature 101.5 F trending down to 99.0 F, O2 saturation 97% on room air. Abdomen/pelvis CT revealing left-sided nephrostomy tube in place with minimal change. Patient was started on IV antibiotic regimen vancomycin, please see medication orders section in the computer. On my assessment, patient denied chest pain, no headache, no dizziness, no shortness of breaths, no diaphoresis, no abdominal pain, no diarrhea, no nausea, no vomiting, no fever, no chills. Patient was admitted for further evaluation and medical management. Past Medical History HTN, Kidney Stones Past Surgical History Lithotripsy, Appendectomy, BTL, Left nephrostomy Family History Reviewed, noncontributory to the management of this case. Past Social History The patient lives at home, smokes cigarettes, drinks alcohol occasionally, uses methamphetamine. Review of Systems Constitutional: Yes: Fever, Chills; No: Sweats, Weakness, Malaise, Other Eyes: No: Pain, Vision change, Conjunctivae inflammation, Eyelid inflammation, Other, Redness ENT: No: Ear pain, Ear discharge, Nose pain, Nose discharge, Nose congestion, Mouth pain, Mouth swelling, Throat pain, Throat swelling, Other Respiratory: No: Cough, Dry, Shortness of breath, SOB with excertion, Wheezing, Hemoptysis, Pleuritic Pain, Sputum, Wheezing, Other Cardiovascular: No: Chest Pain, Palpitations, Orthopnea, Paroxysmal Noc. Dyspnea, Edema, Lt Headedness, Other Gastrointestinal: No: Nausea, Vomiting, Abdominal Pain, Diarrhea, Constipation, Melena, Hematochezia, Other Genitourinary: No Dysuria, No Frequency, No Incontinence, No Hematuria, No Retention; Other (Nephrostomy tube in place/cloudy urine) Musculoskeletal: No: other, neck pain, shoulder pain, arm pain, back pain, hand pain, leg pain, foot pain Skin: No: Rash, Lesions, Jaundice, Bruising, Other Neurological: No: Weakness, Numbness, Incoordination, Change in speech, Confusion, Seizures, Other Allergies: Coded Allergies: NO KNOWN ALLERGIES (Unverified , 05/17/10) Medications Current Medications Medications Dose Ordered Sig/Phillip Route Start Time Stop Time Status Last Admin Dose Admin Cefepime HCl 50 ml @ 12.5 mls/hr Q8HR IV 12/14/24 22:00 12/14/24 22:14 12.5 MLS/HR Vancomycin HCl 0 ml @ 0 mls/hr UD IV 12/14/24 20:45 UNV Sodium Chloride 1,000 ml @ 100 mls/hr Q10H IV 12/14/24 20:45 12/14/24 21:27 100 MLS/HR Acetaminophen/ Hydrocodone Bitart 1 tab Q4HP PRN PO 12/14/24 20:45 Ondansetron HCl 4 mg Q4HP PRN IV 12/14/24 20:45 Docusate Sodium 100 mg BIDPRN PRN PO 12/14/24 20:45 Acetaminophen 650 mg Q6HP PRN PO 12/14/24 20:45 Exam Vital Signs Vital Signs Date Time Temp Pulse Resp B/P (MAP) Pulse Ox O2 Delivery O2 Flow Rate FiO2 12/14/24 22:00 109 16 124/73 (90) 97 12/14/24 20:00 98.9 98.9 12/14/24 19:30 Room Air* 0 21 General Appearance: Alert, Oriented X3, Cooperative, No acute distress HEENT: Atraumatic, PERRLA, EOMI, Mucous membr. moist/pink Respiratory: Clear to auscultation, Normal air movement Cardiovascular: Regular rate, Normal S1, Normal S2, No murmurs Abdominal: Normal bowel sounds, Soft, No tenderness, No hepatospenomegaly, No masses Extremities: No clubbing, No cyanosis, No edema, Normal pulses, No tenderness/swelling Skin: No rashes, No breakdown, No significant lesion Neuro: Normal speech, Normal tone, Sensation intact, Cranial nerves 3-12 NL, Reflexes 2+, Other (Generalized weakness) Psych/Mental Status: Mental status NL, Mood NL Labs/Xrays Labs Test 12/14/24 20:46 12/14/24 16:31 12/14/24 14:34 Range/Units Urine Color Colorless Yellow Urine Clarity Turbid H Clear Urine pH 6.0 5.0-9.0 Urine Specific [place] 1.011 1.001-1.035 Urine Protein 2+ H Negative Urine Ketones Negative Negative Urine Blood 2+ H Negative /uL Urine Nitrite 2+ H Negative Urine Bilirubin Negative Negative Urine Urobilinogen Normal Negative mg/dL Urine Leukocyte Esterase 3+ Negative /uL Urine RBC 25 0 - 4 /hpf Urine Microscopic WBC 87 H 0-5 /HPF Urine Squamous Epithelial Cells Few <5 /hpf Urine Bacteria Few H None Seen /hpf Urine Mucus Few None Seen Urine Glucose Normal Normal mg/dL Lactic Acid Level 1.5 0.4-2.0 mmol/L White Blood Count 18.0 H 4.4-10.8 10^3/uL Red Blood Count 4.77 4.0-5.20 10^6/uL Hemoglobin 11.1 L 12.2-16.2 g/dL Hematocrit 34.6 L 36.0-46.0 % Mean Corpuscular Volume 72.5 L 80.0-100.0 fL Mean Corpuscular Hemoglobin 23.3 L 28.0-32.0 pg Mean Corpuscular Hemoglobin Concent 32.2 32.0-36.0 g/dL Red Cell Distribution Width 20.7 H 11.8-14.3 % Platelet Count 298 140-450 10^3/uL Mean Platelet Volume 8.0 6.9-10.8 fL Neutrophils (%) (Auto) 88.0 H 37.0-80.0 % Lymphocytes (%) (Auto) 5.0 L 10.0-50.0 % Monocytes (%) (Auto) 6.7 0.0-12.0 % Eosinophils (%) (Auto) 0.1 0.0-7.0 % Basophils (%) (Auto) 0.2 0.0-2.0 % Neutrophils # (Auto) 15.8 H 1.6-8.6 10 ^3/uL Lymphocytes # (Auto) 0.9 0.4-5.4 10 ^3/uL Monocytes # (Auto) 1.2 0-1.3 10 ^3/uL Eosinophils # (Auto) 0 0-0.8 10 ^3/uL Basophils # (Auto) 0 0-0.2 10 ^3/uL Nucleated Red Blood Cells 0.0 % Sodium Level 138 136-145 mmol/L Potassium Level 3.4 L 3.5-5.1 mmol/L Chloride Level 103 98-107 mmol/L Carbon Dioxide Level 23 20-31 mmol/L Anion Gap 12 5-15 Blood Urea Nitrogen 7 L 9-23 mg/dL Creatinine 1.14 H 0.550-1.02 mg/dL Glomerular Filtration Rate Calc 59 >90 mL/min BUN/Creatinine Ratio 6.1 L 10.0-20.0 Serum Glucose 137 H 74-106 mg/dL Calcium Level 10.2 8.7-10.4 mg/dL PATIENT: LUCY PERSAUD ACCT: [id number] UNIT: [id number] : 1975 LOC: ER ROOM / BED: / AGE / SEX: 49 / F ADM STATUS: REG ER SERVICE 1406 ORDERING PHYSICIAN: DAVID HENAO MD PROCEDURE(s): ABPL - CT AB PEL WO CON-NO ORAL OR IV REASON: dysuria, left flank pain ORDER NUMBER(s): [id number], ACCESSION NUMBER(s): [id number] Exam: CT CT AB PEL WO CON-NO ORAL OR IV History: dysuria, left flank pain Comparison Study: CT CT AB PEL WO CON-NO ORAL OR IV on DOS: 12/06/24, CT CT AB PEL WO CON-NO ORAL OR IV on DOS: 10/17/24 TECHNIQUE: Multidetector CT of the abdomen was performed from lung bases to pubic symphysis. Imaging was performed without IV contrast. Axial, coronal and sagittal multiplanar reformats were obtained from the axial data set by the technologist. Radiation Dose Information: CT Dose: CTDI volume is 12.21 mGy. Dose-length product is 71.7 mGy*cm FINDINGS: Evaluation of solid organs is limited due to lack of intravenous contrast use. Findings: Lung Bases: No acute or significant lung base finding. Normal heart size. No pleural or pericardial effusion. Liver: The liver is normal in size. No focal lesions. Gallbladder and Biliary Tree: Unremarkable Spleen: Unremarkable Pancreas: The pancreas is grossly normal in appearance. Adrenal Glands: Unremarkable Kidneys: Nephrostomy tube in place loop is slightly larger in the renal pelvis, but is still in good position in the kidney Multiple right renal calculi are seen Bladder: Grossly unremarkable for degree of distention. Bowel: The stomach is grossly normal in appearance. Small bowel and colon are normal in caliber and distribution. The appendix is not visualized; however, no secondary findings of acute appendicitis identified. Ascites: Absent Lymphadenopathy: No mesenteric, retroperitoneal or periportal lymphadenopathy. Abdominal Wall and Mesentery: Unremarkable. Vasculature: The visualized abdominal aorta is normal in size and caliber. Evaluation of abdominal and pelvic vessels is limited due to lack of intravenous contrast. Pelvic Organs: Unremarkable Musculoskeletal: No aggressive focal bony lesions, acute fractures or dislocation. Soft tissues: Unremarkable IMPRESSION: 1. Left sided nephrostomy tube in place with minimal change. Assessment/Plan Assessment/Plan Sepsis, unspecified organisms Hypokalemia Generalized weakness Plan 1. Admit to telemetry unit 2. Breathing treatment 3. Pain control management 4. IV antibiotic management 5. Management of fluids and electrolytes 6. Consultation for hospitalist 7. Diagnostic test abdomen/pelvis CT 8. DVT prophylaxis on SCDs 9. Repeat labs CBC, CMP in a.m. 10. Home medication reviewed and reconciled 11. Continue with current medical management 12. Treatment plan discussed with patient and RN. Patient verbalized understanding. Plan discussed with: Patient, Other (RN) My Orders Orders - ASHWIN LINK DNP Procedure Category Date Status Time Vancomycin Per PHA 12/14/24 Pending Pharmacy 20:45 Sodium Chloride 0.9% PHA 12/14/24 In Process 20:45 Allergies DEONNA 12/14/24 In Process 20:43 Code Status CODE 12/14/24 Transmitted 20:43 2 Gm Sodium Diet DIET 12/15/24 Transmitted Breakfast Oxygen Per Hour RT 12/14/24 Transmitted 20:43 Hydrocodone-Acet PHA 12/14/24 In Process 5/325mg Tab ([place] 20:45 Ondansetron Hcl PHA 12/14/24 In Process (Zofran) 20:45 Docusate Sodium PHA 12/14/24 In Process Capsule (Colace 20:45 Complete Blood Count LAB 12/15/24 Verified 04:00 Comprehensive LAB 12/15/24 Verified Metabolic Panel 04:00 Condition: Serious DEONNA 12/14/24 In Process 20:43 Acetaminophen Tablet PHA 12/14/24 In Process (Tylenol Tablet) 20:45 Bedrest With Bathroom DEONNA 12/14/24 In Process Privileg 20:43 Sequential DEONNA 12/14/24 In Process Compression Device Problem List: (1) Sepsis, unspecified organism (2) Hypokalemia (3) Generalized weakness Date of Service: Dec 14, 2024 Billing Provider: ASHWIN LINK DNP Common Visit Codes: [id number] INP/OBS CARE (HIGH) ASHWIN LINK DNP Dec 14, 2024 22:39
[2024-12-14] MEDS ORDERED: MORPHINE SULFATE INJ 2 MG/ml SYRG IV PRN (22:45)
[2024-12-14] MEDS ORDERED: NITROGLYCERIN 0.4 MG SL TAB SL PRN (22:45)
[2024-12-15] VITALS (8 sets, daily range): BP systolic 100–137; BP diastolic 63–83; PULSE 83–98; RESP 16–21; TEMP 96.3–99; O2SAT 93–100
[2024-12-15] MEDS: ACETAMINOPHEN 325 MG TAB PO PRN (00:39)
[2024-12-15 05:15] LABS: Basophils # (auto) 0 10 ^3/uL (0-0.2); Eosinophils # (auto) 0 10 ^3/uL (0-0.8); Eosinophils % (auto) 0.2 % (0.0-7.0); Mean Corpuscular Hgb Conc. 32.2 g/dL (32.0-36.0); Monocytes # (auto) 1.3 10 ^3/uL (0-1.3)
[2024-12-15 05:17] LABS: Basophils % (auto) 0.3 % (0.0-2.0); Hematocrit 31.1 % (36.0-46.0); Lymphocytes # (auto) 1.3 10 ^3/uL (0.4-5.4); Lymphocytes % (auto) 9.9 % (10.0-50.0); Mean Corpuscular Hemoglobin 23.1 pg (28.0-32.0); Mean Corpuscular Volume 71.8 fL (80.0-100.0); Monocytes % (auto) 10.3 % (0.0-12.0); Neutrophils # (auto) 10.4 10 ^3/uL (1.6-8.6); Neutrophils % (auto) 79.3 % (37.0-80.0); Platelet Count (auto) 254 10^3/uL (140-450); Red Blood Cells 4.33 10^6/uL (4.0-5.20); White Blood Cell 13.1 10^3/uL (4.4-10.8)
[2024-12-15 05:18] LABS: Red Cell Distribution Width 20.9 % (11.8-14.3)
[2024-12-15 05:24] LABS: Alanine Aminotransferase 15 U/L (7-40); Alkaline Phosphatase 68 U/L (46-116); Anion Gap 10 (5-15); Aspartate Aminotransferase 21 U/L (<34); BUN/Creatinine Ratio 8.7 (10.0-20.0); Calcium 9.2 mg/dL (8.7-10.4); Carbon Dioxide 23 mmol/L (20-31); Sodium 141 mmol/L (136-145); Total Protein 6.6 g/dL (5.7-8.2)
[2024-12-15 05:25] LABS: Bilirubin, Total 0.5 mg/dL (0.2-1.0)
[2024-12-15 05:29] LABS: Blood Urea Nitrogen 9 mg/dL (9-23); Chloride 108 mmol/L (98-107); Glucose 115 mg/dL (74-106); Potassium 3.4 mmol/L (3.5-5.1)
[2024-12-15 06:01] LABS: Anisocytosis Slight; Platelet Estimate Adequate
[2024-12-15] MEDS: VANCOMYCIN 1GM/250ML KIT 250 ML IV SCH (10:49)
[2024-12-15] MEDS: POTASSIUM CHLORIDE 8 MEQ TAB PO ONE (13:23)
--- NOTE | 2024-12-15 13:52 | DVHPN2 ---
Subjective states urine is clearing/was cloudy yesterday Changes from previous H/P or p: No Changes Eyes: No Pain, No Vision change, No Conjunctivae inflammation, No Eyelid inflammation, No Other, No Redness ENT: No Ear pain, No Ear discharge, No Nose pain, No Nose discharge, No Nose congestion, No Mouth pain, No Mouth swelling, No Throat pain, No Throat swelling, No Other Cardiovascular: No Chest Pain, No Palpitations, No Orthopnea, No Paroxysmal Noc. Dyspnea, No Edema, No Lt Headedness, No Other Respiratory: No Cough, No Dry, No Shortness of breath, No SOB with excertion, No Wheezing, No Hemoptysis, No Pleuritic Pain, No Sputum, No Other Gastrointestinal: No Nausea, No Vomiting, No Abdominal Pain, No Diarrhea, No Constipation, No Melena, No Hematochezia, No Other Genitourinary: No Dysuria, No Frequency, No Incontinence, No Hematuria, No Retention; Other (Nephrostomy tube in place/cloudy urine) Musculoskeletal: No other, No neck pain, No shoulder pain, No arm pain, No back pain, No hand pain, No leg pain, No foot pain Skin: No Rash, No Lesions, No Jaundice, No Bruising, No Other Objective Vitals Vital Signs Date Time Temp Pulse Resp B/P (MAP) Pulse Ox O2 Delivery O2 Flow Rate FiO2 12/15/24 12:33 96.3 96 19 125/83 (97) 97 96.3 12/15/24 07:30 Room Air* 0 21 Intake/Output Intake and Output 12/15/24 07:00 Intake Total 50 ml Output Total 225 ml Balance -175 ml Intake Oral 0 ml IV Total 50 ml Output Drainage Total 225 ml # Voids 6 General Appearance: Alert, Oriented X3, Cooperative, No acute distress Lungs: Clear to auscultation Cardiovascular: Regular rate, Normal S1, Normal S2, No murmurs Abdomen: Normal bowel sounds, Soft, No tenderness, No hepatospenomegaly Musculoskeletal: Normal sensory function, Normal motor function Neuro: Normal speech, Strength at 5/5 X4 ext, Normal tone, Sensation intact Psych/Mental Status: Mental status NL, Mood NL Medications Current Medications Medications Dose Ordered Sig/Phillip Route Start Time Stop Time Status Last Admin Dose Admin Cefepime HCl 50 ml @ 12.5 mls/hr Q8HR IV 12/14/24 22:00 12/15/24 13:23 12.5 MLS/HR Vancomycin HCl 0 ml @ 0 mls/hr UD IV 12/14/24 20:45 Sodium Chloride 1,000 ml @ 100 mls/hr Q10H IV 12/14/24 20:45 12/14/24 21:27 100 MLS/HR Acetaminophen/ Hydrocodone Bitart 1 tab Q4HP PRN PO 12/14/24 20:45 Ondansetron HCl 4 mg Q4HP PRN IV 12/14/24 20:45 Docusate Sodium 100 mg BIDPRN PRN PO 12/14/24 20:45 Acetaminophen 650 mg Q6HP PRN PO 12/14/24 20:45 12/15/24 07:53 650 MG Nitroglycerin 0.4 mg Q5MINP PRN SL 12/14/24 22:45 Morphine Sulfate 2 mg Q30M PRN IV 12/14/24 22:45 Vancomycin HCl 250 ml @ 250 mls/hr Q12H IV 12/15/24 10:00 12/15/24 10:49 250 MLS/HR Laboratory Results Laboratory Tests 12/15/24 04:07 Chemistry Test 12/14/24 14:34 12/15/24 04:07 Calcium Level 10.2 mg/dL (8.7-10.4) 9.2 mg/dL (8.7-10.4) Albumin 4.0 g/dL (3.2-4.8) Total Protein 6.6 g/dL (5.7-8.2) LFT Test 12/15/24 04:07 Alanine Aminotransferase (ALT) 15 U/L (7-40) Alkaline Phosphatase 68 U/L (46-116) Aspartate Amino Transferase (AST) 21 U/L (<34) Total Bilirubin 0.5 mg/dL (0.2-1.0) Urinalysis Test 12/14/24 20:46 Urine Color Colorless (Yellow) Urine Clarity Turbid (Clear) H Urine pH 6.0 (5.0-9.0) Urine Specific [place] 1.011 (1.001-1.035) Urine Protein 2+ (Negative) H Urine Ketones Negative (Negative) Urine Blood 2+ /uL (Negative) H Urine Nitrite 2+ (Negative) H Urine Bilirubin Negative (Negative) Urine Urobilinogen Normal mg/dL (Negative) Urine Leukocyte Esterase 3+ /uL (Negative) Urine RBC 25 /hpf (0 - 4) Urine Microscopic WBC 87 /HPF (0-5) H Urine Squamous Epithelial Cells Few /hpf (<5) Urine Bacteria Few /hpf (None Seen) H Urine Mucus Few (None Seen) Urine Glucose Normal mg/dL (Normal) Microbiology Microbiology Date/Time Source Procedure Growth Status 12/15/24 07:50 Nose MRSA Screen - Final Complete Assessment/Plan Assessment/Plan sepsis due to uti- blood and urine cultures pending lt nephrostomy status- consult uro for need for change given uti/if indicated will consult radiology nephrolithiasis awaiting lithotripsy in week hypokalemia replace gfr status stable ambulatory status Plan discussed with: Patient, Other My Orders Orders - ROYAL CHAPMAN MD Procedure Category Date Status Time Urine Bacterial MELISSA 12/15/24 Logged Culture 12:19 * Urology Consult CONS 12/15/24 Transmitted 12:20 Complete Blood Count LAB 12/16/24 Verified 04:00 Basic Metabolic Panel LAB 12/16/24 Verified 04:00 Date of Service: Dec 15, 2024 Billing Provider: ROYAL CHAPMAN MD Common Visit Codes: [id number] INP/OBS CARE(MOD) ROYAL CHAPMAN MD Dec 15, 2024 13:52
[2024-12-15] MEDS: ONDANSETRON HCL 4 MG/2 ML VIAL IV PRN (20:20)
[2024-12-15] MEDS: HYDROcodone-ACET 5/325MG TAB PO PRN (20:20)
[2024-12-15] MEDS: VANCOMYCIN 1GM/200ML PM 200 ML IV ONE (21:49)
[2024-12-16] VITALS (7 sets, daily range): BP systolic 117–135; BP diastolic 61–88; PULSE 67–95; RESP 17–18; TEMP 97.5–98.6; O2SAT 97–99
[2024-12-16 05:31] LABS: Basophils # (auto) 0 10 ^3/uL (0-0.2); Eosinophils # (auto) 0.3 10 ^3/uL (0-0.8); Hemoglobin 10.2 g/dL (12.2-16.2); Mean Corpuscular Hemoglobin 23.4 pg (28.0-32.0); Mean Corpuscular Hgb Conc. 32.7 g/dL (32.0-36.0); Monocytes % (auto) 9.9 % (0.0-12.0); White Blood Cell 10.5 10^3/uL (4.4-10.8)
[2024-12-16 05:32] LABS: Basophils % (auto) 0.3 % (0.0-2.0); Eosinophils % (auto) 2.5 % (0.0-7.0); Hematocrit 31.3 % (36.0-46.0); Lymphocytes # (auto) 1.3 10 ^3/uL (0.4-5.4); Lymphocytes % (auto) 12.4 % (10.0-50.0); Mean Corpuscular Volume 71.6 fL (80.0-100.0); Neutrophils # (auto) 7.9 10 ^3/uL (1.6-8.6); Neutrophils % (auto) 74.9 % (37.0-80.0); Nucleated Red Blood Cells % 0.1 %; Platelet Count (auto) 258 10^3/uL (140-450); Red Blood Cells 4.37 10^6/uL (4.0-5.20); Red Cell Distribution Width 20.7 % (11.8-14.3)
[2024-12-16 05:40] LABS: Potassium 3.7 mmol/L (3.5-5.1); Sodium 140 mmol/L (136-145)
[2024-12-16 05:41] LABS: Anion Gap 10 (5-15); Carbon Dioxide 22 mmol/L (20-31)
[2024-12-16 05:42] LABS: Calcium 8.7 mg/dL (8.7-10.4)
[2024-12-16 05:46] LABS: Glucose 106 mg/dL (74-106)
[2024-12-16 05:47] LABS: BUN/Creatinine Ratio 11.8 (10.0-20.0); Blood Urea Nitrogen 10 mg/dL (9-23)
[2024-12-16 05:52] LABS: Chloride 108 mmol/L (98-107)
--- NOTE | 2024-12-16 11:28 | DVHINCON2 ---
Date of service: Dec 16, 2024 Referring Physician Hospitalist Reason for Consultation nephrostomy tube History of Present Illness History Source: Patient, RN Notes, MD Notes, Old Records Exam Limitations: No limitations Home Meds Active Scripts Hydrocodone-Acetaminophen (Hydrocodone Bitartrate/AC 5-325 mg) 1 Tab Tab, 1 TAB PO Q6HP PRN, #15 TAB Prov:DIANNA ROSA PAC 12/06/24 Tamsulosin Hcl (Flomax) 0.4 Mg Cap, 0.4 MG PO QPM for 30 Days, #30 CAP Prov:CORONA ELLINGTON MD 10/19/24 Lisinopril (Lisinopril) 20 Mg Tab, 1 TAB PO DAILY, #30 TAB 5 Refills Prov:BARRY YOUNG MD 10/20/21 Past Medical History Renal/: UTI, Other (kidney stones, medullary nephrocalcinosis) Patient Family History: Patient reports no known family medical history. Drugs: Amphetimines Review of Systems Constitutional: Fever, Malaise Genitourinary: Hematuria, Pain H&P Exam Vital Signs Vital Signs Date Time Temp Pulse Resp B/P (MAP) Pulse Ox O2 Delivery O2 Flow Rate FiO2 12/16/24 09:00 98.6 90 18 119/61 (80) 99 98.6 12/16/24 08:00 Room Air* 0 21 General Appeara: Well developed, Well nourished, Normal Appearance, Obese Neuro/Mental St: Alert, Oriented Appearance: Appropriate appearance, Appropriate insight Eye contact/ Speech: Cooperative, Good eye contact, Normal speech Skin Exam: Normal inspection, Normal color, Warm/dry Labs/Xrays [place] [address] Ph: [phone] DIAGNOSTIC IMAGING Diagnostic Imaging Report : [id number] Signed PATIENT: LUCY PERSAUD ACCT: [id number] UNIT: [id number] : 1975 LOC: ER ROOM / BED: / AGE / SEX: 49 / F ADM STATUS: REG ER SERVICE 7830 ORDERING PHYSICIAN: DAVID HENAO MD PROCEDURE(s): ABPL - CT AB PEL WO CON-NO ORAL OR IV REASON: dysuria, left flank pain ORDER NUMBER(s): [id number], ACCESSION NUMBER(s): [id number] Exam: CT CT AB PEL WO CON-NO ORAL OR IV History: dysuria, left flank pain Comparison Study: CT CT AB PEL WO CON-NO ORAL OR IV on DOS: 12/06/24, CT CT AB PEL WO CON-NO ORAL OR IV on DOS: 10/17/24 TECHNIQUE: Multidetector CT of the abdomen was performed from lung bases to pubic symphysis. Imaging was performed without IV contrast. Axial, coronal and sagittal multiplanar reformats were obtained from the axial data set by the technologist. Radiation Dose Information: CT Dose: CTDI volume is 12.21 mGy. Dose-length product is 71.7 mGy*cm FINDINGS: Evaluation of solid organs is limited due to lack of intravenous contrast use. Findings: Lung Bases: No acute or significant lung base finding. Normal heart size. No pleural or pericardial effusion. Liver: The liver is normal in size. No focal lesions. Gallbladder and Biliary Tree: Unremarkable Spleen: Unremarkable Pancreas: The pancreas is grossly normal in appearance. Adrenal Glands: Unremarkable Kidneys: Nephrostomy tube in place loop is slightly larger in the renal pelvis, but is still in good position in the kidney Multiple right renal calculi are seen Bladder: Grossly unremarkable for degree of distention. Bowel: The stomach is grossly normal in appearance. Small bowel and colon are normal in caliber and distribution. The appendix is not visualized; however, no secondary findings of acute appendicitis identified. Ascites: Absent Lymphadenopathy: No mesenteric, retroperitoneal or periportal lymphadenopathy. Abdominal Wall and Mesentery: Unremarkable. Vasculature: The visualized abdominal aorta is normal in size and caliber. Evaluation of abdominal and pelvic vessels is limited due to lack of intravenous contrast. Pelvic Organs: Unremarkable Musculoskeletal: No aggressive focal bony lesions, acute fractures or dislocation. Soft tissues: Unremarkable IMPRESSION: 1. Left sided nephrostomy tube in place with minimal change. Radiation optimization: All CT scans at this facility use at least one of these dose optimization techniques: automated exposure control mA and/or kV adjustment per patient size (includes targeted exams where dose is matched to clinical indication) or iterative reconstruction. HS:Y ATED BY: LARRY LOW Jr., DO DICTATED DATE/TIME: 12/14/24 9302 SIGNED BY: LARRY LOW Jr., DO SIGNED DATE/TIME: 12/14/24 1446 CC: Labs Test 12/16/24 11:10 12/16/24 04:30 12/15/24 04:07 12/14/24 20:46 Range/Units White Blood Count 10.5 4.4-10.8 10^3/uL Red Blood Count 4.37 4.0-5.20 10^6/uL Hemoglobin 10.2 L 12.2-16.2 g/dL Hematocrit 31.3 L 36.0-46.0 % Mean Corpuscular Volume 71.6 L 80.0-100.0 fL Mean Corpuscular Hemoglobin 23.4 L 28.0-32.0 pg Mean Corpuscular Hemoglobin Concent 32.7 32.0-36.0 g/dL Red Cell Distribution Width 20.7 H 11.8-14.3 % Platelet Count 258 140-450 10^3/uL Mean Platelet Volume 8.2 6.9-10.8 fL Neutrophils (%) (Auto) 74.9 37.0-80.0 % Lymphocytes (%) (Auto) 12.4 10.0-50.0 % Monocytes (%) (Auto) 9.9 0.0-12.0 % Eosinophils (%) (Auto) 2.5 0.0-7.0 % Basophils (%) (Auto) 0.3 0.0-2.0 % Neutrophils # (Auto) 7.9 1.6-8.6 10 ^3/uL Lymphocytes # (Auto) 1.3 0.4-5.4 10 ^3/uL Monocytes # (Auto) 1.0 0-1.3 10 ^3/uL Eosinophils # (Auto) 0.3 0-0.8 10 ^3/uL Basophils # (Auto) 0 0-0.2 10 ^3/uL Nucleated Red Blood Cells 0.1 % Sodium Level 140 136-145 mmol/L Potassium Level 3.7 3.5-5.1 mmol/L Chloride Level 108 H 98-107 mmol/L Carbon Dioxide Level 22 20-31 mmol/L Anion Gap 10 5-15 Blood Urea Nitrogen 10 9-23 mg/dL Creatinine 0.85 0.550-1.02 mg/dL Glomerular Filtration Rate Calc 84 >90 mL/min BUN/Creatinine Ratio 11.8 10.0-20.0 Serum Glucose 106 74-106 mg/dL Calcium Level 8.7 8.7-10.4 mg/dL Vancomycin Level Trough 15.4 H 5-10 ug/mL Platelet Estimate Adequate Anisocytosis (manual) Slight Microcytosis Slight Total Bilirubin 0.5 0.2-1.0 mg/dL Aspartate Amino Transferase (AST) 21 <34 U/L Alanine Aminotransferase (ALT) 15 7-40 U/L Alkaline Phosphatase 68 46-116 U/L Total Protein 6.6 5.7-8.2 g/dL Albumin 4.0 3.2-4.8 g/dL Urine Color Colorless Yellow Urine Clarity Turbid H Clear Urine pH 6.0 5.0-9.0 Urine Specific [place] 1.011 1.001-1.035 Urine Protein 2+ H Negative Urine Ketones Negative Negative Urine Blood 2+ H Negative /uL Urine Nitrite 2+ H Negative Urine Bilirubin Negative Negative Urine Urobilinogen Normal Negative mg/dL Urine Leukocyte Esterase 3+ Negative /uL Urine RBC 25 0 - 4 /hpf Urine Microscopic WBC 87 H 0-5 /HPF Urine Squamous Epithelial Cells Few <5 /hpf Urine Bacteria Few H None Seen /hpf Urine Mucus Few None Seen Urine Glucose Normal Normal mg/dL Test 12/14/24 16:31 Range/Units Lactic Acid Level 1.5 0.4-2.0 mmol/L Microbiology Date/Time Source Procedure Growth Status 12/15/24 07:50 Nose MRSA Screen - Final Complete 12/14/24 16:30 Blood Blood Culture - Preliminary NO GROWTH AFTER 24 HOURS OF INCUBATION. Resulted Assessment/Plan Problem List: (1) Hydronephrosis with renal and ureteral calculous obstruction (2) Sepsis, unspecified organism (3) Nephrostomy complication (4) Hematuria Plan left PCN exchange treat UTI outpt sx scheduled for 12/25/24 at [facility] may be d/c home after PCN exchange Plan discussed with: Patient, Other JOHNSON MALDONADO NP Dec 16, 2024 11:28
[2024-12-16 12:03] LABS: Partial Thromboplastin Time 31.3 SEC (24.5-34.5); Prothrombin Time 10.6 sec (9.3-11.8)
--- NOTE | 2024-12-16 12:52 | DVHPN2 ---
Reviewed: Care Plan, H&P, Labs, Medications, Previous Orders Changes from previous H/P or p: No Changes General: Per HPI Eyes: No Pain, No Vision change, No Conjunctivae inflammation, No Eyelid inflammation, No Other, No Redness ENT: No Ear pain, No Ear discharge, No Nose pain, No Nose discharge, No Nose congestion, No Mouth pain, No Mouth swelling, No Throat pain, No Throat swelling, No Other Cardiovascular: No Chest Pain, No Palpitations, No Orthopnea, No Paroxysmal Noc. Dyspnea, No Edema, No Lt Headedness, No Other Respiratory: No Cough, No Dry, No Shortness of breath, No SOB with excertion, No Wheezing, No Hemoptysis, No Pleuritic Pain, No Sputum, No Other Gastrointestinal: No Nausea, No Vomiting, No Abdominal Pain, No Diarrhea, No Constipation, No Melena, No Hematochezia, No Other Genitourinary: No Dysuria, No Frequency, No Incontinence, No Hematuria, No Retention; Other (Nephrostomy tube in place/cloudy urine) Musculoskeletal: No other, No neck pain, No shoulder pain, No arm pain, No back pain, No hand pain, No leg pain, No foot pain Skin: No Rash, No Lesions, No Jaundice, No Bruising, No Other Objective Vitals Vital Signs Date Time Temp Pulse Resp B/P (MAP) Pulse Ox O2 Delivery O2 Flow Rate FiO2 12/16/24 12:46 98.1 76 18 117/68 (84) 98 98.1 12/16/24 08:00 Room Air* 0 21 Intake/Output Intake and Output 12/16/24 07:00 Intake Total 3350 ml Output Total 140 ml Balance 3210 ml Intake Oral 2600 ml IV Total 750 ml Output Drainage Total 140 ml # Voids 7 # Bowel Movements 2 General Appearance: Alert, Oriented X3, Cooperative, No acute distress Lungs: Clear to auscultation Cardiovascular: Regular rate, Normal S1, Normal S2, No murmurs Abdomen: Normal bowel sounds, Soft, No tenderness, No hepatospenomegaly Musculoskeletal: Normal sensory function, Normal motor function Neuro: Normal speech, Strength at 5/5 X4 ext, Normal tone, Sensation intact Psych/Mental Status: Mental status NL, Mood NL Medications Current Medications Medications Dose Ordered Sig/Phillip Route Start Time Stop Time Status Last Admin Dose Admin Cefepime HCl 50 ml @ 12.5 mls/hr Q8HR IV 12/14/24 22:00 12/16/24 05:25 12.5 MLS/HR Vancomycin HCl 0 ml @ 0 mls/hr UD IV 12/14/24 20:45 Sodium Chloride 1,000 ml @ 100 mls/hr Q10H IV 12/14/24 20:45 12/14/24 21:27 100 MLS/HR Acetaminophen/ Hydrocodone Bitart 1 tab Q4HP PRN PO 12/14/24 20:45 12/15/24 20:20 1 TAB Ondansetron HCl 4 mg Q4HP PRN IV 12/14/24 20:45 12/15/24 20:20 4 MG Docusate Sodium 100 mg BIDPRN PRN PO 12/14/24 20:45 Acetaminophen 650 mg Q6HP PRN PO 12/14/24 20:45 12/16/24 09:43 650 MG Nitroglycerin 0.4 mg Q5MINP PRN SL 12/14/24 22:45 Morphine Sulfate 2 mg Q30M PRN IV 12/14/24 22:45 Vancomycin HCl 250 ml @ 250 mls/hr Q12H IV 12/15/24 10:00 12/16/24 09:46 250 MLS/HR Laboratory Results Laboratory Tests 12/16/24 04:30 Chemistry Test 12/16/24 04:30 Calcium Level 8.7 mg/dL (8.7-10.4) Coagulation Test 12/16/24 11:10 Prothrombin Time 10.6 sec (9.3-11.8) Prothrombin Time INR 1.00 (0.9-1.15) Activated Partial Thromboplast Time 31.3 SEC (24.5-34.5) Urinalysis Test 12/14/24 20:46 Urine Color Colorless (Yellow) Urine Clarity Turbid (Clear) H Urine pH 6.0 (5.0-9.0) Urine Specific [place] 1.011 (1.001-1.035) Urine Protein 2+ (Negative) H Urine Ketones Negative (Negative) Urine Blood 2+ /uL (Negative) H Urine Nitrite 2+ (Negative) H Urine Bilirubin Negative (Negative) Urine Urobilinogen Normal mg/dL (Negative) Urine Leukocyte Esterase 3+ /uL (Negative) Urine RBC 25 /hpf (0 - 4) Urine Microscopic WBC 87 /HPF (0-5) H Urine Squamous Epithelial Cells Few /hpf (<5) Urine Bacteria Few /hpf (None Seen) H Urine Mucus Few (None Seen) Urine Glucose Normal mg/dL (Normal) Microbiology Microbiology Date/Time Source Procedure Growth Status 12/15/24 07:50 Nose MRSA Screen - Final Complete 12/14/24 16:30 Blood Blood Culture - Preliminary NO GROWTH AFTER 24 HOURS OF INCUBATION. Resulted Assessment/Plan Assessment/Plan sepsis due to uti- blood and urine cultures pending lt nephrostomy status- consult uro for need for change given uti/if indicated will consult radiology nephrolithiasis awaiting lithotripsy in week hypokalemia replace gfr status stable ambulatory status (1) Sepsis, unspecified organism (2) Hypokalemia (3) Generalized weakness Plan discussed with: Patient Date of Service: Dec 16, 2024 Billing Provider: STEPHANIE MERAZ DO Common Visit Codes: [id number] INP/OBS CARE(HIGH) STEPHANIE MERAZ DO Dec 16, 2024 12:52
[2024-12-16] MEDS ORDERED: HYDROcodone-ACET 5/325MG TAB PO PRN (13:15)
--- NOTE | 2024-12-16 13:27 | DVH ---
CHEST RADIOGRAPH Indication: PREOP Technique: Single frontal view of the chest was obtained Comparison: None FINDINGS: The cardiac silhouette is unremarkable. The lungs demonstrate no pulmonary airspace consolidation. Th e pulmonary vasculature is prominent. There is no pleural effusion.. There is no pneumothorax. IMPRESSION: Pulmonary vasculature congestion.
[2024-12-16] MEDS: IBUPROFEN 600 MG TAB PO PRN (20:12)
[2024-12-16] MEDS: VANCOMYCIN 1GM/200ML PM 200 ML IV SCH (21:59)
[2024-12-17] VITALS (10 sets, daily range): BP systolic 102–136; BP diastolic 60–83; PULSE 57–80; RESP 16–19; TEMP 97.9–98.5; O2SAT 91–98
[2024-12-17 06:28] LABS: Basophils # (auto) 0 10 ^3/uL (0-0.2); Eosinophils # (auto) 0.3 10 ^3/uL (0-0.8); Lymphocytes # (auto) 1.7 10 ^3/uL (0.4-5.4); Monocytes # (auto) 0.7 10 ^3/uL (0-1.3); Neutrophils # (auto) 3.5 10 ^3/uL (1.6-8.6); Nucleated Red Blood Cells % 0.1 %
[2024-12-17 06:33] LABS: Basophils % (auto) 0.5 % (0.0-2.0); Eosinophils % (auto) 4.9 % (0.0-7.0); Hematocrit 30.5 % (36.0-46.0); Hemoglobin 10.1 g/dL (12.2-16.2); Mean Corpuscular Hemoglobin 23.7 pg (28.0-32.0); Mean Corpuscular Volume 71.8 fL (80.0-100.0); Monocytes % (auto) 11.8 % (0.0-12.0); Neutrophils % (auto) 55.8 % (37.0-80.0); Platelet Count (auto) 275 10^3/uL (140-450); Red Blood Cells 4.25 10^6/uL (4.0-5.20); Red Cell Distribution Width 20.8 % (11.8-14.3); White Blood Cell 6.2 10^3/uL (4.4-10.8)
[2024-12-17] MEDS: IODIXANOL 320MG/ML 100ML BTL IV ONE (09:56)
[2024-12-17] MEDS: fentaNYL CITRATE 100 MCG/2 ML VL ONE (09:56)
[2024-12-17] MEDS: LIDOCAINE 2%HCL (LOCAL ANESTH.) INJ 20ML MDV ONE (09:56)
[2024-12-17] MEDS: MIDAZOLAM HCL 2MG/2ML 2ml VIAL (1mg/ml) ONE (09:57)
--- NOTE | 2024-12-17 14:02 | DVH ---
XY PERCUTANEOUS NEPHROSTOMY, HISTORY: NEPH TUBE exchange due to urosepsis. PROCEDURE: Informed consent was obtained. The patient was placed on the fluoroscopic table in a prone position and IV sedation administered. The left flank was prepped with chlorhexidine which was allow ed to dry and draped in the usual sterile fashion. Time out was performed. and the soft tissues infil trated with 1% lidocaine local anesthetic. An antegrade nephrostogram was performed to confirm positi on of the previous nephrostomy tube. The tube was cut and a glidewire was inserted through the nephr ostomy tube into the ureter. The prior nephrostomy tube was removed, and a new 8.[address] ainage catheter was advanced into the renal pelvis over a wire. Completion antegrade nephrostogram de monstrates appropriate position of the new nephrostomy tube in the renal pelvis. The catheter was sec ured in place and connected to gravity drainage. A sterile dressing was applied. No immediate complic ation was identified. DAP 2.7 FLUOROSCOPY TIME: 2.2 minutes. CONTRAST USED: 10 mL . SEDATION: Dr. Jacquie Davis was personally responsible for the administration of moderate sedation during the procedure performed, including the use of an independent trained observer who had no other duties during the procedure. The drugs utilized were IV fentanyl and versed (see nursing log for details). The total time of supervision by the attending physician was approximately 30 minutes. FINDINGS: Nephrostomy tube within pigtail coiled in the left renal pelvis. IMPRESSION: Successful exchange of a left sided nephrostomy tube, with placement of a new 8.5 fr multipurpose corey inage catheter in the left sided renal pelvis. PLAN: Routine catheter care.
[2024-12-17] MEDS ORDERED: NAP500T PO (14:35)
--- NOTE | 2024-12-17 14:37 | DVHDS2 ---
Discharge Summary Date of Admission Dec 14, 2024 at 22:38 Date of Discharge: Dec 17, 2024 Labs/Diagnostic Data: Laboratory Results Test 12/17/24 04:33 12/16/24 11:10 12/16/24 04:30 12/15/24 04:07 White Blood Count 6.2 10^3/uL (4.4-10.8) Red Blood Count 4.25 10^6/uL (4.0-5.20) Hemoglobin 10.1 g/dL (12.2-16.2) Hematocrit 30.5 % (36.0-46.0) Mean Corpuscular Volume 71.8 fL (80.0-100.0) Mean Corpuscular Hemoglobin 23.7 pg (28.0-32.0) Mean Corpuscular Hemoglobin Concent 33.0 g/dL (32.0-36.0) Red Cell Distribution Width 20.8 % (11.8-14.3) Platelet Count 275 10^3/uL (140-450) Mean Platelet Volume 8.4 fL (6.9-10.8) Neutrophils (%) (Auto) 55.8 % (37.0-80.0) Lymphocytes (%) (Auto) 27.0 % (10.0-50.0) Monocytes (%) (Auto) 11.8 % (0.0-12.0) Eosinophils (%) (Auto) 4.9 % (0.0-7.0) Basophils (%) (Auto) 0.5 % (0.0-2.0) Neutrophils # (Auto) 3.5 10 ^3/uL (1.6-8.6) Lymphocytes # (Auto) 1.7 10 ^3/uL (0.4-5.4) Monocytes # (Auto) 0.7 10 ^3/uL (0-1.3) Eosinophils # (Auto) 0.3 10 ^3/uL (0-0.8) Basophils # (Auto) 0 10 ^3/uL (0-0.2) Nucleated Red Blood Cells 0.1 % Creatinine 0.86 mg/dL (0.550-1.02) Glomerular Filtration Rate Calc 83 mL/min (>90) Prothrombin Time 10.6 sec (9.3-11.8) Prothrombin Time INR 1.00 (0.9-1.15) Activated Partial Thromboplast Time 31.3 SEC (24.5-34.5) Sodium Level 140 mmol/L (136-145) Potassium Level 3.7 mmol/L (3.5-5.1) Chloride Level 108 mmol/L (98-107) Carbon Dioxide Level 22 mmol/L (20-31) Anion Gap 10 (5-15) Blood Urea Nitrogen 10 mg/dL (9-23) BUN/Creatinine Ratio 11.8 (10.0-20.0) Serum Glucose 106 mg/dL (74-106) Calcium Level 8.7 mg/dL (8.7-10.4) Vancomycin Level Trough 15.4 ug/mL (5-10) Platelet Estimate Adequate Anisocytosis (manual) Slight Microcytosis Slight Total Bilirubin 0.5 mg/dL (0.2-1.0) Aspartate Amino Transferase (AST) 21 U/L (<34) Alanine Aminotransferase (ALT) 15 U/L (7-40) Alkaline Phosphatase 68 U/L (46-116) Total Protein 6.6 g/dL (5.7-8.2) Albumin 4.0 g/dL (3.2-4.8) Test 12/14/24 20:46 12/14/24 16:31 Urine Color Colorless (Yellow) Urine Clarity Turbid (Clear) Urine pH 6.0 (5.0-9.0) Urine Specific [place] 1.011 (1.001-1.035) Urine Protein 2+ (Negative) Urine Ketones Negative (Negative) Urine Blood 2+ /uL (Negative) Urine Nitrite 2+ (Negative) Urine Bilirubin Negative (Negative) Urine Urobilinogen Normal mg/dL (Negative) Urine Leukocyte Esterase 3+ /uL (Negative) Urine RBC 25 /hpf (0 - 4) Urine Microscopic WBC 87 /HPF (0-5) Urine Squamous Epithelial Cells Few /hpf (<5) Urine Bacteria Few /hpf (None Seen) Urine Mucus Few (None Seen) Urine Glucose Normal mg/dL (Normal) Lactic Acid Level 1.5 mmol/L (0.4-2.0) Other Laboratory Tests 12/17/24 04:33 12/16/24 04:30 Brief Hx & Hospital Course: sepsis due to uti (1) Sepsis, unspecified organism (2) Hypokalemia (3) Generalized weakness improved discharged to home Condition at Discharge: Fair Final Diagnosis/Problems List see above Discharge Disposition: Home Discharge Instruct/Medications Diet: Cardiac 2g Na,low cholest Activity: No Restrictions, As Tolerated Discharge Statement: "Patient was advised to return to the ER or call 911 if any headaches, dizziness, shortness of breath, chest pain, abdominal pain, bleeding, fevers, or worsening of medical condition. Patient was counseled about treatment plan, medications, possible side effects, patientverbalized understanding. All questions were answered to the best of my ability. This discharge took greater then 30 minutes in planning, reviewing documentation, counseling the patient, and discussing with other team members." ASSESSMENT ASSESSMENT Assessment Date of Service: Dec 17, 2024 Billing Provider: STEPHANIE MERAZ DO Common Visit Codes: [id number]-MLY/OBS DISCH DAY >30min STEPHANIE MERAZ DO Dec 17, 2024 14:37
== END 2024-12-17 19:10 | disposition home or self-care (01) | DRG 720 ==
LOC: ER 11:43 → OVERFLOW 22:38 → TELE-WESTW 12-15 02:42
PROVIDERS: ADMIT Internal Medicine; ATTEND Internal Medicine
PROC: 0T25X0Z Change Drainage Device in Kidney, External Approach (ICD-10-PCS; principal; 2024-12-17)
PROC: BT12ZZZ Fluoroscopy of Left Kidney (ICD-10-PCS; 2024-12-17)
DX: A41.81 Sepsis due to Enterococcus (principal); N17.0 Acute kidney failure with tubular necrosis; N13.6 Pyonephrosis; E87.6 Hypokalemia; I10 Essential (primary) hypertension; F15.90 Other stimulant use, unspecified, uncomplicated; F17.210 Nicotine dependence, cigarettes, uncomplicated; N99.528 Other complication of incontinent external stoma of urinary tract; Z79.899 Other long term (current) drug therapy; Z90.49 Acquired absence of other specified parts of digestive tract
CPT/HCPCS: 36415; 50431; 71045; 74176; 74425; 80048; 80053; 80202; 81001; 82565; 83605; 85025; 85610; 85730; 86850; 86900; 86901; 87040; 87081; 87086; 87088; 87186; 96365; 99152; 99291; G0378; J2250; J2405; Q9967

== ENCOUNTER 2025-01-03 09:52 | Emergency (ER) | payer MEDICAID ==
[~2025-01-03] VITALS: Ht 154.9 cm; Wt 73.6 kg
[~2025-01-03 09:52] MED LIST changes: +NAP500T PO
--- NOTE | 2025-01-03 10:54 | ED.PDOC ---
General HPI Comments A 49 YEAR OLD FEMALE PRESENTS TO THE ED WITH COMPLAINT OF UTI SYMPTOMS. PATIENT STATES SHE HAD A VAGINAL STENT PLACED DUE TO A KIDNEY STONE ON 12/25/2024 AND HAS BEEN EXPERIENCING PAINFUL URINATION AND VAGINAL PAIN A RESULT SINCE SHE HAD THIS STENT PLACED. PATIENT REPORTS SHE HAS A HISTORY OF UTIS IN THE PAST AND IS CONCERNED SHE MAY HAVE ANOTHER ONE TODAY. PATIENT DENIES HEMATURIA, FLANK PAIN, FEVER, CHILLS, SHORTNESS OF BREATH, CHEST PAIN, ABDOMINAL PAIN, NAUSEA, VOMITING, HEADACHE, OR OTHER COMPLAINTS. NO OTHER SYMPTOMS OR MODIFYING FACTORS AT THIS TIME. PATIENT IS ALERT, ORIENTED X 4, AND HAS STEADY GAIT. Chief Complaint: Urinary Time Seen by MD: 09:58 Primary Care Provider: LACY Garcia notes: Nurses Notes, Medications, Allergies Allergies: Coded Allergies: NO KNOWN ALLERGIES (Unverified , 05/17/10) Home Meds Active Scripts Phenazopyridine HCl (Phenazopyridine Hydrochlo) 200 Mg Tab, 200 MG PO TID, #6 TAB Prov:ARMAND TOWNSEND 01/03/25 Sulfamethoxazole W/Trimethopri (Bactrim Ds Tablet) 1 Tab Tb, 1 TAB PO BID for 8 Days, #16 TAB Prov:ARMAND TOWNSEND 01/03/25 Naproxen (NAPROSYN TABLET) 500 Mg Tb, 1 TAB PO BID for 15 Days, #30 TAB 1 Refill Prov:STEPHANIE MERAZ DO 12/17/24 Hydrocodone-Acetaminophen (Hydrocodone Bitartrate/AC 5-325 mg) 1 Tab Tab, 1 TAB PO Q6HP PRN, #15 TAB Prov:DIANNA ROSA PAC 12/06/24 Tamsulosin Hcl (Flomax) 0.4 Mg Cap, 0.4 MG PO QPM for 30 Days, #30 CAP Prov:CORONA ELLINGTON MD 10/19/24 Lisinopril (Lisinopril) 20 Mg Tab, 1 TAB PO DAILY, #30 TAB 5 Refills Prov:BARRY YOUNG MD 10/20/21 Information Source: Patient Mode of Arrival: Ambulatory Severity: Moderate Inability to void: None Timing: Days Duration: Since onset, Days Prehospital treatment: None Onset: Spontaneous Symptoms: Dysuria, Other (VAGINAL PAIN) History of: UTI Location: Suprapubic, Other (VAGINAL REGION) associated signs and symptoms: Dysuria Past Medical History PAST MEDICAL HISTORY: HTN, Kidney Stones, UTI'S Surgical History: Appendectomy, BTL BEHAVIORAL HEALTH PROFESSIONAL History: No Pertinent BEHAVIORAL HEALTH PROFESSIONAL History Family History Family History: Reviewed,noncontributory to illness Social History Smoker: Cigarettes Alcohol: Occasionally Drugs: Methamphetamine Lives In: Home Constitutional: denies: chills, diaphoresis, fatigue, fever, malaise, sweats, weakness, others EENTM: denies: blurred vision, double vision, ear bleeding, ear discharge, ear drainage, ear pain, ear ringing, eye pain, eye redness, hearing loss, mouth pain, mouth swelling, nasal discharge, nose bleeding, nose congestion, nose pain, photophobia, tearing, throat pain, throat swelling, voice changes, others Respiratory: denies: cough, hemoptysis, orthopnea, SOB at rest, shortness of breath, SOB with excertion, stridor, wheezing, others Cardiovascular: denies: chest pain, dizzy spells, diaphoresis, Dyspnea on exertion, edema, irregular heart beat, left arm pain, lightheadedness, palpitations, PND, syncope, others Gastrointestinal: denies: abdomen distended, abdominal pain, blood streaked bowels, constipated, diarrhea, dysphagia, difficulty swallowing, hematemesis, melena, nausea, poor appetite, poor fluid intake, rectal bleeding, rectal pain, vomiting, others Genitourinary: reports: burning, dysuria, pain (VAGINAL PAIN); denies: abnormal vagina bleeding, dyspareunia, flank pain, frequency, hematuria, incontinence, , vagina discharge, urgency, others Neurological: denies: dizziness, fainting, headache, left sided numbness, left sided weakness, numbness, paresthesia, pre-existing deficit, right sided numbness, right sided weakness, seizure, speech problems, tingling, tremors, weakness, others Musculoskeletal: denies: back pain, gout, joint pain, joint swelling, muscle pain, muscle stiffness, neck pain, others Integumetry: denies: bruises, change in color, change in hair/nails, dryness, laceration, lesions, lumps, rash, wounds, others Allergic/Immunocompromised: denies: Difficulty Healing, Frequent Infections, Hives, Itching, others Hematologic/Lymphatic: denies: anemia, blood clots, easy bleeding, easy bruising, swollen glands, others Endocrine: denies: excessive hunger, excessive sweating, excessive thirst, excessive urination, flushing, intolerance to cold, intolerance to heat, unexplained weight gain, unexplained weight loss, others Psychiatric: denies: anxiety, bipolar disorder, depression, hopeless, panic disorder, schizophrenia, sleepless, suicidal, others All Other Systems: Reviewed and Negative Physical Exam General Appearance: No Apparent Distress, Normal HEENT: Normal ENT Inspection, PERRL/EOMI, Pharynx Normal, TMs Normal Neck: Full Range of Motion, Non-Tender, Normal, Normal Inspection Respiratory: Chest Non-Tender, Lungs Clear, No Accessory Muscle Use, No Respiratory Distress, Normal Breath Sounds Cardiovascular: No Edema, No JVD, No Murmur, No Gallop, Normal Peripheral Pulses, Regular Rate/Rhythm Breast Exam: Deferred Gastrointestinal: No Organomegaly, Non Tender, No Pulsatile Mass, Normal Bowel Sounds, Soft Genitalia: Deferred Pelvic: Normal External Exam, Tender Uterus (AND VAGINAL REGION, NO GUARDING AN D REBOUND TENDERNESS. ) Rectal: Deferred Extremities: No calf tenderness, Normal capillary refill, Normal inspection, Normal range of motion, Non-tender, No pedal edema Musculoskeletal : Apperance: Normal Neurologic: Alert, heel seat laster II-XII nml as Tested, No Motor Deficits, Normal Affect, Normal Mood, No Sensory Deficits Cerebellar Function: Normal Reflexes: Normal Skin: Dry, Normal Color, Warm Peripheral Pulses: 2+ carotid (R), 2+ carotid (L) Lymphatic: No Adenopathy Was a procedure done? Was a procedure done?: No Differential Diagnosis Kidney stone (Female): N/A Kidney stone (Male): N/A Penile/Scrotal: N/A Urinary Problem (Male): N/A Urinary Problem (Female): Pyelonephritis, Urolithiasis, UTI, Vaginitis X-Ray, Labs, Meds, VS Vital Signs Date Time Temp Pulse Resp B/P (MAP) Pulse Ox O2 Delivery O2 Flow Rate FiO2 01/03/25 10:19 97.7 82 16 139/82 (101) 99 97.7 Lab Test 01/03/25 10:42 Range/Units Urine Color Yellow Yellow Urine Clarity Cloudy H Clear Urine pH 6.0 5.0-9.0 Urine Specific [place] 1.018 1.001-1.035 Urine Protein 2+ H Negative Urine Ketones Negative Negative Urine Blood 3+ H Negative /uL Urine Nitrite Negative Negative Urine Bilirubin Negative Negative Urine Urobilinogen Normal Negative mg/dL Urine Leukocyte Esterase 2+ Negative /uL Urine RBC 1507 0 - 4 /hpf Urine WBC Clumps Present None Seen /hpf Urine Microscopic WBC 179 H 0-5 /HPF Urine Squamous Epithelial Cells Few <5 /hpf Urine Bacteria Few H None Seen /hpf Urine Glucose Normal Normal mg/dL X-Ray, Labs, Meds, VS Comment EXTERNAL MEDICAL RECORDS REVIEWED: [NONE] INDEPENDENT HISTORIANS: [NONE] SOCIAL DETERMINANTS OF HEALTH: [NONE] LABS ORDERED: UA REVIEWED AND INTERPRETED RESULTS: LEUKO 2+ URINE WBC 179, BLOOD 3+ IMAGING ORDERED: NONE TREATMENTS ORDERED: NONE PROCEDURES PERFORMED: NONE CRITICAL CARE TIME: NONE I HAVE DISCUSSED THE PATIENT WITH THE ATTENDING PHYSICIAN DR. THACKER AND HE AGREES WITH THE PATIENT'S PLAN OF CARE AND DISPOSITION. BASED ON HISTORY OF PRESENT ILLNESS, AND PHYSICAL EXAM, PATIENT WILL BE DISC HARGED HOME. DISCUSSED PLAN FOR DISCHARGE HOME WITH RX [SEPTRA DS AND PYRIDIUM]. MEDICATION WARNINGS GIVEN. SHARED DECISION MAKING: PATIENT INSTRUCTED TO FOLLOW UP WITH PRIMARY CARE PROVIDER IN 1-2 DAYS FOR RE-EVALUATION OF SYMPTOMS. PATIENT VERBALIZES U NDERSTANDING TO RETURN TO ED FOR NEW OR WORSENING SYMPTOMS OR IF FOLLOW UP WITH PCP CANNOT BE OBTAINED. PATIENT FEELS COMFORTABLE GOING HOME AT THIS TIME. ALL QUESTIONS ADDRESSED AT TIME OF DISCHARGE. Time of 1ST Reevaluation: 11:28 Reevaluation 1ST: Improved Patient Education/Counseling: Diagnosis, Treatment, Need For Follow Up Family Education/Counseling: Diagnosis, Treatment, Need For Follow Up Medical Screening: No EMC Exist At This Time SEPSIS Sepsis Screen Date sepsis recognized/suspect: Jan 03, 2025 Time Sepsis recognized/suspect: 1005 Recent Procedure: No On Antibiotic Therapy: No Respiratory Rate >20: No Heart Rate >90: No Temp<36 C (96.8 F) or >38.3 C: No SBP <90 or MAP <65 mmHG: No New Acute Mental Status Change: No Is the patient on CPAP, BIPAP,: No Vital Signs Date Time Temp Pulse Resp B/P (MAP) Pulse Ox O2 Delivery O2 Flow Rate FiO2 01/03/25 10:19 97.7 82 16 139/82 (101) 99 97.7 Departure 1 Departure Time of Disposition: 11:28 Impression: Primary Impression: Acute UTI (urinary tract infection) Disposition: HOME / SELF CARE / HOMELESS Condition: Stable Additional Instructions: FOLLOW-UP WITH PCP IN 1 TO 2 DAYS. TAKE MEDICATIONS PRESCRIBED. RETURN TO ED FOR ANY NEW OR WORSENING SYMPTOMS. e-Prescriptions Phenazopyridine HCl (Phenazopyridine Hydrochlo) 200 Mg Tab 200 MG PO TID, #6 TAB Prov: ARMAND TOWNSEND 01/03/25 Sulfamethoxazole W/Trimethopri (Bactrim Ds Tablet) 1 Tab Tb 1 TAB PO BID for 8 Days, #16 TAB Prov: ARMAND TOWNSEND 01/03/25 Discharged With: Self Critical Care Note Critical Care Time?: No Stability Stability form required: No I personally scribed for ARMAND TOWNSEND ([email or web address]) on 01/03/25 at 10:54. Electronically submitted by Asa Null ([employer]). I personally scribed for ARMAND TOWNSEND ([email or web address]) on 01/03/25 at 11:22. Electronically submitted by Asa Null ([email or web address]). ARMAND TOWNSEND Jan 03, 2025 10:54
[2025-01-03 11:04] LABS: Urine Protein, UAD 2+ (Negative); Urine WBC Clumps PRESENT /hpf (None Seen)
[2025-01-03] MEDS ORDERED: PHEN-922 PO (11:21)
[2025-01-03] MEDS ORDERED: BACDST PO (11:21)
[2025-01-03 11:32] VITALS: BP 150/81; PULSE 78; RESP 17; TEMP 97.5; O2SAT 98
== END 2025-01-03 11:34 | disposition home or self-care (01) ==
LOC: ER 09:52
DX: N39.0 Urinary tract infection, site not specified (principal); F17.210 Nicotine dependence, cigarettes, uncomplicated; F12.90 Cannabis use, unspecified, uncomplicated; F10.90 Alcohol use, unspecified, uncomplicated; I10 Essential (primary) hypertension; Z87.440 Personal history of urinary (tract) infections; Z79.899 Other long term (current) drug therapy; Z90.49 Acquired absence of other specified parts of digestive tract; Z98.51 Tubal ligation status; Y90.9 Presence of alcohol in blood, level not specified
CPT/HCPCS: 81001

== ENCOUNTER 2025-05-26 16:12 | Emergency (ER) | payer MEDICAID ==
[~2025-05-26] VITALS: Ht 154.9 cm; Wt 82.9 kg
[~2025-05-26 16:12] MED LIST changes: +BACDST PO; +PHEN-922 PO
[2025-05-26 16:19] VITALS: BP 178/111; PULSE 79; RESP 16; TEMP 97.6; O2SAT 93
--- NOTE | 2025-05-26 16:35 | ED.PDOC ---
GI ASSESSMENT HPI Comments 49y F who presents to the ED for chief complaint of abdominal pain. Pt states she has been having L sided pelvic and LLQ pain since yesterday. Pt states the pain is intermittent, aching and sharp in nature, rating the pain 7/10, with no noted exacerbating or relieving factors. Pt denies any associated symptoms. Pt has noted history of kidney stones in the past and states she has surgery for it in the past. Pt otherwise denies any other symptoms. Chief Complaint: Abdominal Pain Time Seen by MD: 16:32 Primary Care Provider: LACY Garcia Notes: Nurses Notes, Medications, Allergies Allergies: Coded Allergies: NO KNOWN ALLERGIES (Unverified , 05/17/10) Home Meds Active Scripts Tramadol HCl (Tramadol HCl) 50 Mg Tab, 50 MG PO Q8HP PRN for 5 Days, #15 TAB Prov:JOE MARTIN MD 05/26/25 Phenazopyridine HCl (Phenazopyridine Hydrochlo) 200 Mg Tab, 200 MG PO TID, #6 TAB Prov:ARMAND TOWNSEND 01/03/25 Sulfamethoxazole W/Trimethopri (Bactrim Ds Tablet) 1 Tab Tb, 1 TAB PO BID for 8 Days, #16 TAB Prov:ARMAND TOWNSEND 01/03/25 Naproxen (NAPROSYN TABLET) 500 Mg Tb, 1 TAB PO BID for 15 Days, #30 TAB 1 Refill Prov:STEPHANIE MERAZ DO 12/17/24 Hydrocodone-Acetaminophen (Hydrocodone Bitartrate/AC 5-325 mg) 1 Tab Tab, 1 TAB PO Q6HP PRN, #15 TAB Prov:DIANNA ROSA PAC 12/06/24 Tamsulosin Hcl (Flomax) 0.4 Mg Cap, 0.4 MG PO QPM for 30 Days, #30 CAP Prov:CORONA ELLINGTON MD 10/19/24 Lisinopril (Lisinopril) 20 Mg Tab, 1 TAB PO DAILY, #30 TAB 5 Refills Prov:BARRY YOUNG MD 10/20/21 Information Source: Patient Mode of Arrival: Ambulatory Brought in by: self Timing: Hours Duration: Since onset Prehospital treatment: None Quality: Aching, Sharp Vomitus: None Stool: Normal Severity: Moderate Recent: None Recent Hx of: Other (kidney stones) Pain Location: LUQ, Suprapubic Modifying Factors: Nothing Associated sign and symptoms: Abdominal Pain Past Medical History PAST MEDICAL HISTORY: HTN, Kidney Stones, UTI'S Surgical History: Appendectomy, BTL MEDIA MARKETING COORDINATOR History: No Pertinent MEDIA MARKETING COORDINATOR History Family History Family History: Reviewed,noncontributory to illness Social History Smoker: Quit Greater Than 1 Year Alcohol: Occasionally Drugs: Methamphetamine Lives In: Home Constitutional: denies: chills, diaphoresis, fatigue, fever, malaise, sweats, weakness, others EENTM: denies: blurred vision, double vision, ear bleeding, ear discharge, ear drainage, ear pain, ear ringing, eye pain, eye redness, hearing loss, mouth pain, mouth swelling, nasal discharge, nose bleeding, nose congestion, nose pain, photophobia, tearing, throat pain, throat swelling, voice changes, others Respiratory: denies: cough, hemoptysis, orthopnea, SOB at rest, shortness of breath, SOB with excertion, stridor, wheezing, others Cardiovascular: denies: chest pain, dizzy spells, diaphoresis, Dyspnea on exertion, edema, irregular heart beat, left arm pain, lightheadedness, palpitations, PND, syncope, others Gastrointestinal: reports: abdominal pain; denies: abdomen distended, blood streaked bowels, constipated, diarrhea, dysphagia, difficulty swallowing, hematemesis, melena, nausea, poor appetite, poor fluid intake, rectal bleeding, rectal pain, vomiting, others Genitourinary: denies: abnormal vagina bleeding, burning, dyspareunia, dysuria, flank pain, frequency, hematuria, incontinence, pain, , vagina discharge, urgency, others Neurological: denies: dizziness, fainting, headache, left sided numbness, left sided weakness, numbness, paresthesia, pre-existing deficit, right sided numbness, right sided weakness, seizure, speech problems, tingling, tremors, weakness, others Musculoskeletal: denies: back pain, gout, joint pain, joint swelling, muscle pain, muscle stiffness, neck pain, others Integumetry: denies: bruises, change in color, change in hair/nails, dryness, laceration, lesions, lumps, rash, wounds, others Allergic/Immunocompromised: denies: Difficulty Healing, Frequent Infections, Hives, Itching, others Hematologic/Lymphatic: denies: anemia, blood clots, easy bleeding, easy bruising, swollen glands, others Endocrine: denies: excessive hunger, excessive sweating, excessive thirst, excessive urination, flushing, intolerance to cold, intolerance to heat, unexplained weight gain, unexplained weight loss, others Psychiatric: denies: anxiety, bipolar disorder, depression, hopeless, panic disorder, schizophrenia, sleepless, suicidal, others All Other Systems: Reviewed and Negative Physical Exam General Appearance: No Apparent Distress HEENT: Normal ENT Inspection, Pharynx Normal, TMs Normal Neck: Full Range of Motion, Non-Tender, Normal, Normal Inspection Respiratory: Chest Non-Tender, Lungs Clear, No Accessory Muscle Use, No Respiratory Distress, Normal Breath Sounds Cardiovascular: No Edema, No JVD, No Murmur, No Gallop, Normal Peripheral Pulses, Regular Rate/Rhythm Breast Exam: Deferred Gastrointestinal: LLQ, No Organomegaly, No Pulsatile Mass, Normal Bowel Sounds, Soft, Tenderness Genitalia: Deferred Pelvic: Deferred Rectal: Deferred Extremities: No calf tenderness, Normal capillary refill, Normal inspection, Normal range of motion, Non-tender, No pedal edema Musculoskeletal : Apperance: Normal Neurologic: Alert, draughtsman II-XII nml as Tested, No Motor Deficits, Normal Affect, Normal Mood, No Sensory Deficits Cerebellar Function: Normal Reflexes: Normal Skin: Dry, Normal Color, Warm Lymphatic: No Adenopathy Was a procedure done? Was a procedure done?: No GI differential Dx Differential Diagnosis: Constipation, Gastritis/PUD, Gastroenteritis, Pancreatitis, UTI, Dehydration, Electrolyte Imbalance, Food Poisoning, Bacterial, Viral, Stress Ulcer, Kidney Stone X-Ray, Labs, Meds, VS Vital Signs Date Time Temp Pulse Resp B/P (MAP) Pulse Ox O2 Delivery O2 Flow Rate FiO2 05/26/25 16:19 97.6 79 16 178/111 93 97.6 Lab Test 05/26/25 16:50 Range/Units White Blood Count 9.6 4.4-10.8 10^3/uL Red Blood Count 5.30 H 4.0-5.20 10^6/uL Hemoglobin 13.8 12.2-16.2 g/dL Hematocrit 41.8 36.0-46.0 % Mean Corpuscular Volume 78.8 L 80.0-100.0 fL Mean Corpuscular Hemoglobin 26.0 L 28.0-32.0 pg Mean Corpuscular Hemoglobin Concent 33.0 32.0-36.0 g/dL Red Cell Distribution Width 20.5 H 11.8-14.3 % Platelet Count 253 140-450 10^3/uL Mean Platelet Volume 8.6 6.9-10.8 fL Neutrophils (%) (Auto) 62.8 37.0-80.0 % Lymphocytes (%) (Auto) 27.4 10.0-50.0 % Monocytes (%) (Auto) 7.0 0.0-12.0 % Eosinophils (%) (Auto) 2.5 0.0-7.0 % Basophils (%) (Auto) 0.3 0.0-2.0 % Neutrophils # (Auto) 6.0 1.6-8.6 10 ^3/uL Lymphocytes # (Auto) 2.6 0.4-5.4 10 ^3/uL Monocytes # (Auto) 0.7 0-1.3 10 ^3/uL Eosinophils # (Auto) 0.2 0-0.8 10 ^3/uL Basophils # (Auto) 0 0-0.2 10 ^3/uL Nucleated Red Blood Cells 0.0 % Sodium Level 142 136-145 mmol/L Potassium Level 3.9 3.5-5.1 mmol/L Chloride Level 107 98-107 mmol/L Carbon Dioxide Level 26 20-31 mmol/L Anion Gap 9 5-15 Blood Urea Nitrogen 13 9-23 mg/dL Creatinine 0.89 0.550-1.02 mg/dL Glomerular Filtration Rate Calc 80 >90 mL/min BUN/Creatinine Ratio 14.6 10.0-20.0 Serum Glucose 92 74-106 mg/dL Calcium Level 9.6 8.7-10.4 mg/dL Total Bilirubin 0.3 0.2-1.0 mg/dL Aspartate Amino Transferase (AST) 20 13-40 U/L Alanine Aminotransferase (ALT) 20 7-40 U/L Alkaline Phosphatase 81 46-116 U/L Total Protein 7.5 5.7-8.2 g/dL Albumin 4.4 3.2-4.8 g/dL Lipase 51 12-53 U/L Exam: CT CT AB PEL WO CON-NO ORAL OR IV Impression: 1. A 4 mm calculus is seen in the distal left ureter, in a similar position to the prior studies, though appearing to be located slightly superiorly and slightly smaller in size. 2. Additional findings as detailed. At this time, the patient's CBC is within normal limits The chemistry panel is within normal limits The patient was given Toradol The patient will be discharged on Ultram The patient will follow up with the primary care doctor The patient will return to the emergency department's condition worsens. Images Reviewed?: Images reviewed and evaluated by me Time of 1ST Reevaluation: 17:05 Reevaluation 1ST: Unchanged Patient Education/Counseling: Diagnosis, Treatment, Prognosis Family Education/Counseling: No Family Present SEPSIS Sepsis Screen Date sepsis recognized/suspect: May 26, 2025 Time Sepsis recognized/suspect: 1618 Recent Procedure: No On Antibiotic Therapy: No Respiratory Rate >20: No Heart Rate >90: No Temp<36 C (96.8 F) or >38.3 C: No SBP <90 or MAP <65 mmHG: No New Acute Mental Status Change: No Is the patient on CPAP, BIPAP,: No Physician Orders Urinalysis (05/26/25 16:28) Ct Ab Pel Wo Con-No Oral Or Iv (05/26/25 16:28) Ketorolac Injection (Toradol Injection) (05/26/25 18:00) Vital Signs Date Time Temp Pulse Resp B/P (MAP) Pulse Ox O2 Delivery O2 Flow Rate FiO2 05/26/25 16:19 97.6 79 16 178/111 93 97.6 Laboratory Tests Test 05/26/25 16:50 White Blood Count 9.6 10^3/uL (4.4-10.8) Departure 1 Departure Time of Disposition: 17:55 Impression: Primary Impression: Ureterolithiasis Disposition: 01 HOME / SELF CARE / HOMELESS Condition: Fair e-Prescriptions Tramadol HCl (Tramadol HCl) 50 Mg Tab 50 MG PO Q8HP PRN for 5 Days, #15 TAB Prov: JOE MARTIN MD 05/26/25 Discharged With: Self Critical Care Note Critical Care Time?: No Stability Stability form required: No Heart Score Heart Score: Heart Score Response (Comments) Value History N/A 0 EKG N/A 0 Age N/A 0 Risk Factors N/A 0 Troponin N/A 0 Total 0 I personally scribed for JOE MARTIN MD ([email or web address]) on 05/26/25 at 16:35. Electronically submitted by Adan Law ([email or web address]). I personally scribed for JOE MARTIN MD ([email or web address]) on 05/26/25 at 17:18. Electronically submitted by Adan Law ([email or web address]). JOE MARTIN MD May 26, 2025 16:35
[2025-05-26 17:14] LABS: Hematocrit 41.8 % (36.0-46.0); Hemoglobin 13.8 g/dL (12.2-16.2); Mean Corpuscular Hemoglobin 26.0 pg (28.0-32.0); Mean Corpuscular Volume 78.8 fL (80.0-100.0); Nucleated Red Blood Cells % 0.0 %
--- NOTE | 2025-05-26 17:15 | DVH ---
Exam: CT CT AB PEL WO CON-NO ORAL OR IV History: llq pain Comparison Study: CT CT AB PEL WO CON-NO ORAL OR IV on DOS: 12/14/24, CT CT AB PEL WO CON-NO ORAL OR IV on DOS: 12/06/24, CT CT AB PEL WO CON-NO ORAL OR IV on DOS: 10/17/24, US PELVIC on DOS: 10/17/24 TECHNIQUE: Multidetector CT of the abdomen and pelvis was performed from lung bases to pubic symphysis. Imaging was performed without IV contrast. Axial, coronal, and sagittal multiplanar reformats were obtained from the axial data set by the technologist. RADIATION DOSE: CTDI vol 13.7 mGy. DLP 727.4 mGy.cm Findings: Limited evaluation of the solid organs in the absence of IV contrast. Lungs: The lung bases are clear. Liver: Unremarkable. Spleen: Unremarkable. Pancreas: Unremarkable. Gallbladder: Contracted in appearance. Cholelithiasis. Adrenals: Unremarkable Kidneys: 4 mm calculus situated within the distal left ureter with mild upstream hydroureteronephrosis. Bilateral nephrolithiasis. 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 Pelvic Viscera: Unremarkable. Vasculature: Mild atherosclerotic vascular calcification. Retroperitoneum: Unremarkable. Bowel: No bowel obstruction. Musculoskeletal: Degenerative changes of the lumbar spine most pronounced at L5-S1. Soft tissues: Unremarkable. Impression: 1. A 4 mm calculus is seen in the distal left ureter, in a similar position to the prior studies, though appearing to be located slightly superiorly and slightly smaller in size. 2. Additional findings as detailed.
[2025-05-26 17:33] LABS: Alanine Aminotransferase 20 U/L (7-40); Albumin 4.4 g/dL (3.2-4.8); Alkaline Phosphatase 81 U/L (46-116); Anion Gap 9 (5-15); BUN/Creatinine Ratio 14.6 (10.0-20.0); Bilirubin, Total 0.3 mg/dL (0.2-1.0); Blood Urea Nitrogen 13 mg/dL (9-23); Calcium 9.6 mg/dL (8.7-10.4); Carbon Dioxide 26 mmol/L (20-31); Chloride 107 mmol/L (98-107); Glucose 92 mg/dL (74-106); Lipase 51 U/L (12-53); Potassium 3.9 mmol/L (3.5-5.1); Sodium 142 mmol/L (136-145); Total Protein 7.5 g/dL (5.7-8.2)
[2025-05-26] MEDS ORDERED: TRAM-626 PO (17:57)
[2025-05-26 18:17] LABS: Urine Protein, UAD 1+ (Negative)
[2025-05-26] MEDS: KETOROLAC TROMETH 60MG/2ML VIAL IM ONE (18:23)
== END 2025-05-26 18:38 | disposition home or self-care (01) ==
LOC: ER 16:12
DX: N20.1 Calculus of ureter (principal); I10 Essential (primary) hypertension; Z79.899 Other long term (current) drug therapy; Z87.440 Personal history of urinary (tract) infections; Z87.442 Personal history of urinary calculi; Z90.49 Acquired absence of other specified parts of digestive tract; Z98.51 Tubal ligation status
CPT/HCPCS: 36415; 74176; 80053; 81001; 83690; 85025